=== PATIENT | female | born 1950 | race Caucasian/White ===

== ENCOUNTER → 2017-07-05 08:58 | Outpatient (CLI) | payer MEDICARE, SELFPAY ==
--- NOTE | 2017-07-05 09:01 | HPBI_ITS ---
MAMMOGRAPHY - BILATERAL SCREENING REASON FOR EXAM: Female, 67 years old. Routine annual screening examination. PERTINENT HISTORY: Non-contributory. TECHNIQUE: Digital bilateral breast heide (3D mammographic acquisition) in the CC and MLO projections. 2-D mediolateral oblique (MLO) and craniocaudad (CC) views of both breasts were obtained. CAD: Full Field Digital Mammography with Computer Added Detection was performed. COMPARISON: Comparison is made with prior study dated November 27, 2015 and October 18, 2013. FINDINGS: Breast Composition: The breasts are heterogeneously dense, which may obscure small masses. There are no dominant masses or suspicious calcifications. Stable calcified nodule in the superior retroareolar region of the left breast. No other significant abnormalities are identified. There has been no significant change since the prior study. HPBI/SCREENING MAMM (CAD), BILAT IMPRESSION: Stable bilateral screening mammogram. Yearly follow-up mammogram recommended. (A) ASSESSMENT CATEGORY: BIRADS Category 2: Benign. A letter regarding these results will be sent to the patient by the facility within 30 days. Approximately 10% of breast cancers are not detected by mammography. A normal mammogram should not delay biopsy of a clinically suspicious abnormality. [id number] Electronically Signed: Omar Leary MD at 10:45 EST Tel [phone], Service support ,
== END ==
PROVIDERS: Family Provider Internal Medicine; PCP Internal Medicine; Visit Provider Nurse Practitioner
DX: Z12.31 Encounter for screening mammogram for malignant neoplasm of breast (principal)
CPT/HCPCS: 77063; 77067

== ENCOUNTER → 2018-01-10 15:12 | Outpatient (CLI) | payer MEDICARE, SELFPAY | PROVIDERS: Family Provider Nurse Practitioner; PCP Nurse Practitioner; Visit Provider Nurse Practitioner | DX: J44.1 Chronic obstructive pulmonary disease with (acute) exacerbation (principal) | CPT/HCPCS: 71046 ==

== ENCOUNTER → 2018-07-21 13:41 | Outpatient (CLI) | payer MEDICARE, SELFPAY ==
[2017-03-29 13:12] VITALS: BMI 22.1
[2018-07-25 17:44] LABS: HPV Reflexed? NOT INDICATED
== END ==
PROVIDERS: Family Provider Nurse Practitioner; PCP Nurse Practitioner; Visit Provider Obstetrics & Gynecology
DX: N39.0 Urinary tract infection, site not specified (principal); Z12.4 Encounter for screening for malignant neoplasm of cervix; F31.9 Bipolar disorder, unspecified
CPT/HCPCS: 87086; 87088; 88175; G0145

== ENCOUNTER → 2018-07-25 12:14 | Outpatient (CLI) | payer MEDICARE, SELFPAY ==
[2018-07-25 12:32] LABS: Hematocrit 43.2 % (37-47); Hemoglobin 13.7 g/dl (12.0-15.0); Mean Corp Hgb Conc 31.7 g/gl (32-36); Mean Corpuscular Hgb 30.4 pg (27.0-32.0); Mean Platelet Vol. 10.2 fl (6.2-12.0); Platelet Count 332 K/mm3 (150-450); RBC Distribution Width SD 45.3 fl (35.1-43.9); White Blood Count 6.5 K/mm3 (4.4-11.0)
[2018-07-25 12:36] LABS: Scan Indicated on CBC? Y/N NO
[2018-07-25 13:37] LABS: BUN 11 mg/dL (7-18); Creatinine, Serum 0.87 mg/dL (0.55-1.02); EST Glomerular Filtration Rate 69 mL/min (>60); Glucose 82 mg/dL (74-106)
[2018-07-25 13:38] LABS: ALB/GLOB Ratio 1.1 RATIO (0.9-2.4); AST(SGOT) 21 U/L (15-37); Alanine Aminotransfer ALT/SGPT 19 U/L (13-56); Albumin, Serum 3.8 g/dL (3.2-5.0); Alkaline Phosphatase 127 U/L (45-117); Anion Gap 8 (5-15); BUN/Creat Ratio 12.7 RATIO (10-20); CPK Total, Creatine Kinase 38 U/L (26-192); Calcium,Total 9.8 mg/dL (8.5-10.1); Chloride 107 mmol/L (98-107); Est Glom Filt Rate - Afr Amer 83 mL/min (>60); Globulin 3.4 g/dL (2.2-4.2); Potassium 4.9 mmol/L (3.5-5.1); Protein, Total 7.2 g/dL (6.4-8.2); Sodium Level 140 mmol/L (136-145); Thyroid Stim Hormone (TSH) 1.06 uIU/mL (0.358-3.74)
[2018-07-25 15:14] LABS: D-Dimer Quantitative (DVT/PE) 0.51 FEU/ug/m (0.27-0.49)
--- NOTE | 2018-07-25 15:35 | CT_ITS ---
STUDY: CTA CHEST REASON FOR EXAM: Female, 68 years old. SOB/CP X DAYS RADIATION DOSAGE (If Supplied By Facility): CTDIvol = ( 5.37 ) mGy, DLP = ( 150.95 ) mGycm TECHNIQUE: The examination was performed with the intravenous administration of Isovue 370 75 IV. Post-processing of the angiographic images was performed, with multiplanar reformation and 3D reconstruction. Individualized dose optimization techniques were used for this CT. COMPARISON: None. FINDINGS: Normal enhancement of the main pulmonary artery and right and left pulmonary arteries. Normal enhancement of the bilateral peripheral pulmonary arteries. There is no demonstrated pulmonary embolism. Normal thoracic aorta and visualized great vessels. There is no demonstrated aortic dissection. Normal heart and pericardium. Normal mediastinum. Normal hilar regions. Normal visualized trachea and bronchi. The lungs are hyper expanded, with flattening of the hemidiaphragms. Normal pulmonary parenchyma. Normal pleura. Normal chest wall structures. Normal osseous structures. Normal visualized upper abdomen. CT/CTA Chest W/WO Contrast IMPRESSION: Normal CTA chest examination, without a demonstrated pulmonary embolism or arterial dissection. COPD. Electronically Signed: Clemente Parker MD at 16:12 EST , Service support ,
== END ==
PROVIDERS: Family Provider Nurse Practitioner; PCP Nurse Practitioner; Referring Provider Nurse Practitioner Gerontology; Visit Provider Nurse Practitioner Gerontology
DX: R07.9 Chest pain, unspecified (principal); R74.8 Abnormal levels of other serum enzymes
CPT/HCPCS: 71275; 80053; 82550; 84443; 84484; 85027; 85379; Q9967

== ENCOUNTER → 2018-07-27 07:44 | Outpatient (CLI) | payer MEDICARE, SELFPAY ==
[2017-03-29 13:12] VITALS: BMI 22.1
--- NOTE | 2018-07-27 07:50 | ECHOD_ITS ---
Reason For Study: CHEST PAIN Procedure This was a 2D Doppler, Color Flow transthoracic echocardiogram. Exam performed in department. Left Ventricle Normal size and thickness. The estimated ejection fraction is 60 %. Normal diastology for age. No regional wall motion abnormalities noted. Right Ventricle Mildly dilated right ventricle. Normal systolic function. Atria Normal left atrium. Normal right atrium. Hypermobile atrial septum. Bubble contrast study negative for right to left interatrial shunt. Mitral Valve The mitral valve is structurally normal. No prolapse or stenosis seen. Tricuspid Valve Normal tricuspid valve. Trivial tricuspid valve insufficiency. Right ventricular systolic pressure estimated to be 30 mmHg. Aortic Valve Normal aortic valve. Trisinus/trileaflet aortic valve. Pulmonic Valve Normal pulmonic valve. Trivial pulmonic valve insufficiency. Great Vessels Normal aortic root. Normal arch. Normal inferior vena cava. Inferior vena cava collapse with sniff. Pericardium/Pleural No pericardial effusion. Medication 22 gauge I.V. with prn adaptor inserted into right arm. Performed a rapid injection of agitated mix of 9 cc saline and 1cc air to assess for atrial septal defect. MMode/2D Measurements & Calculations LVIDd: 3.7 cm IVSd: 0.81 cm Ao root diam: 3.0 cm LVIDs: 2.5 cm LVPWd: 0.83 cm RVDd: 3.6 cm FS: 31.3 % LAV(MOD-bp): 26.4 ml LVAd ap4: 20.0 cm2 SV(MOD-sp4): 30.8 ml LAV(MOD-bp) Indexed: 18.2 ml/m2 EDV(MOD-sp4): 49.5 ml LAV(MOD-sp2): 34.1 ml EDV(sp4-el): 51.0 ml LAV(MOD-sp4): 17.3 ml LVAs ap4: 10.9 cm2 ESV(MOD-sp4): 18.8 ml ESV(sp4-el): 18.7 ml EF(MOD-sp4): 62.1 % EF(sp4-el): 63.3 % SV(sp4-el): 32.3 ml LA A4 area: 9.5 cm2 LA dimension(2D): 3.3 cm RA A4 area: 13.8 cm2 Time Measurements MV dec time: 0.23 sec Doppler Measurements & Calculations MV E max luc: 60.8 cm/sec Lat Peak E' Luc: 9.2 cm/sec Med Peak E' Luc: 8.4 cm/sec MV A max luc: 59.3 cm/sec E/E' lat: 6.6 E/E' med: 7.2 MV E/A: 1.0 Ao V2 max: 101.8 cm/sec LV V1 max: 75.4 cm/sec PA V2 max: 72.2 cm/sec Ao max P.1 mmHg LV V1 max P.3 mmHg TR max luc: 243.3 cm/sec TR max P.7 mmHg Interpretation Summary The estimated ejection fraction is 60 %. Normal diastology for age. Mildly dilated right ventricle. Hypermobile atrial septum. Bubble contrast study negative for right to left interatrial shunt. Trivial tricuspid valve insufficiency. Right ventricular systolic pressure estimated to be 30 mmHg. Compared to echo report dated 09/26/2007, no appreciable changes noted. Ordering Physician: Teresita Nieves Referring Physician: Teresita Nieves Performed By: Chelo Cruz RDCS
== END ==
PROVIDERS: Family Provider Internal Medicine; PCP Internal Medicine; Referring Provider Internal Medicine; Visit Provider Internal Medicine
DX: R07.9 Chest pain, unspecified (principal)
CPT/HCPCS: 93306

== ENCOUNTER → 2018-08-02 12:26 | Outpatient (CLI) | payer MEDICARE, SELFPAY ==
--- NOTE | 2018-08-02 12:34 | STE_ITS ---
Reason For Study: Chest Pain Stress Results Protocol: Patrick Protocol Maximum Predicted HR: 152 bpm Target HR: 129 bpm % Maximum Predicted HR: 103 % DurationHeart Rate Stage (mm:ss) (bpm) BP Comment Baseline 72 120/70No Chest Pain Patrick Protocol Stage I 3:00 126 130/68No Chest Pain Patrick Protocol Stage II 3:00 137 144/70No Chest Pain; Mild Dyspnea Patrick Protocol Stage III 3:00 157 184/72Mild to Moderate Chest Pressure; Mild Dypsnea Recovery 92 118/70No Chest Pain Stress Duration: 9:00 mm:ss Maximum Stress HR: 157 bpm METS: 10 Baseline Echocardiogram Findings Stress Echo Wall motion Data Resting WM Intermediate WM Stress WM Resting Wall Motion Wall Motion Stress Anterio-Basal: Normal. Anterio-Basal: Hyperkinetic. Lateral-Basal: Normal. Lateral-Basal: Hyperkinetic. Posterior-Basal: Normal. Posterior-Basal: Hyperkinetic. Infero-Basal: Normal. Infero-Basal: Hyperkinetic. Basal inferoseptal: Normal. Basal inferoseptal: Hyperkinetic. Basal anteroseptal: Normal. Basal anteroseptal: Hyperkinetic. Mid-Anterior : Normal. Mid-Anterior : Hyperkinetic. Mid-Lateral : Not visualized. Mid-Lateral : Not visualized. Mid-Posterior: Normal. Mid-Posterior: Hyperkinetic. Mid-Inferior: Normal. Mid-Inferior: Hyperkinetic. Mid-inferoseptal : Normal. Mid-inferoseptal : Hyperkinetic. Mid-anteroseptal : Normal. Mid-anteroseptal : Hyperkinetic. Anterior [place] : Normal. Anterior [place] : Hyperkinetic. Inferior [place] : Normal. Inferior [place] : Hyperkinetic. Lateral [place] : Normal. Lateral [place] : Hyperkinetic. Septall [place] : Normal. Septall [place] : Hyperkinetic. Ejection Fraction 60 %. Ejection Fraction 70 %. Stress Results Heart rate response: Appropriate Blood pressure response: Normal resting blood pressure-appropriate response Arrhythmias: Rare PAC during recovery Functional capacity: Good Stopped secondary to: Dysthymia. EKG Data Baseline ECG: Normal Sinus Rhythm. Peak exercise EC.5 mm Horizontal/Upsloping ST Segment Depression In Leads II, III, avF, and V4- V6 with gradual resolution towards baseline in recovery. Symptoms with Stress The patient noted chest/back discomfort at peak exercise with spontaneous resolution and recovery. Interpretation Summary Negative (Adequate) Stress Echocardiogram Comment: Basal Lateral Segment Inadequately Seen At Rest and s/p Stress Ordering Physician: Teresita Nieves Referring Physician: Andrés Jiménez Performed By: Alycia Birch, RDCS, RVT
== END ==
PROVIDERS: Family Provider Nurse Practitioner; PCP Nurse Practitioner; Referring Provider Internal Medicine; Visit Provider Internal Medicine
DX: R07.9 Chest pain, unspecified (principal)
CPT/HCPCS: 93017; 93350

== ENCOUNTER → 2018-08-03 13:02 | Outpatient (CLI) | payer MEDICARE, SELFPAY ==
[2017-03-29 13:12] VITALS: BMI 22.1
--- NOTE | 2018-08-03 13:04 | BI_ITS ---
MAMMOGRAPHY - BILATERAL SCREENING REASON FOR EXAM: Female, 68 years old. Routine annual screening examination. PERTINENT HISTORY: Non-contributory. TECHNIQUE: Digital bilateral breast heide (3D mammographic acquisition) in the CC and MLO projections. 2-D mediolateral oblique (MLO) and craniocaudad (CC) views of both breasts were obtained. CAD: Full Field Digital Mammography with Computer Added Detection was performed. COMPARISON: Comparison is made with prior study dated July 05, 1999 8:15 and November 27, 2015. FINDINGS: Breast Composition: The breasts are heterogeneously dense, which may obscure small masses. There are no dominant masses or suspicious calcifications. Stable calcified nodule in the superior retroareolar region of the left breast. Stable benign-appearing bilateral axillary lymph nodes. No other significant abnormalities are identified. There has been no significant change since the prior study. BI/SCREENING MAMM (CAD), BILAT IMPRESSION: Stable bilateral screening mammogram. Yearly follow-up mammogram recommended. (A) ASSESSMENT CATEGORY: BIRADS Category 2: Benign. A letter regarding these results will be sent to the patient by the facility within 30 days. Approximately 10% of breast cancers are not detected by mammography. A normal mammogram should not delay biopsy of a clinically suspicious abnormality. [id number] Electronically Signed: Omar Leary, at 15:07 EST , Service support ,
== END ==
PROVIDERS: Family Provider Nurse Practitioner; PCP Nurse Practitioner; Referring Provider Obstetrics & Gynecology; Visit Provider Obstetrics & Gynecology
DX: Z12.31 Encounter for screening mammogram for malignant neoplasm of breast (principal)
CPT/HCPCS: 77063; 77067

== ENCOUNTER → 2019-08-12 08:38 | Outpatient (CLI) | payer MEDICARE, SELFPAY ==
[2017-03-29 13:12] VITALS: BMI 22.1
--- NOTE | 2019-08-12 08:42 | US_ITS ---
STUDY: ABDOMINAL ULTRASOUND REASON FOR EXAM: Female, 69 years old. ABD PAIN TECHNIQUE: Transabdominal ultrasound was performed with real-time and static carrillo scale imaging. TECHNICAL QUALITY: Adequate. COMPARISON: CT 02/17/2017 FINDINGS: Liver: The liver measures 15 cm. There is increased echogenicity of the liver. The bile ducts are within normal limits. There is hepatic color flow. The direction of portal flow is hepatopetal. There is no demonstrated mass lesion. Gallbladder: The patient is status post cholecystectomy. Common Bile Duct (C.B.D.): The common bile duct measures 4 mm. Pancreas: There is normal echogenicity of the visualized pancreas. There is no demonstrated pancreatic mass or cyst. Spleen: Normal size of the spleen. The spleen measures 10.1 x 3.5 x 3.9 cm. Right Kidney: Normal size of the right kidney. The right kidney measures 9.0 x 4.5 x 4.8 cm. Normal renal cortex. The right cortex measures 1.2 cm. Anechoic renal cyst measures 1.8 cm, benign. There is no right hydronephrosis. Left Kidney: Normal size of the left kidney. The left kidney measures 9.2 x 4.1 x 5.0 cm. Normal renal cortex. The left cortex measures 1.2 cm. 1 cm left renal cyst is considered benign. There is no left hydronephrosis. Aorta: Nonaneurysmal, normal axial dimensions I.V.C.: The IVC is patent. There is no ascites. US/Abdomen Complete IMPRESSION: 1. Cholecystectomy. No biliary dilation. 2. Increased echogenicity of the liver is nonspecific but most commonly associated with hepatic steatosis. 3. Bilateral simple renal cysts. Electronically Signed: Guy Molina MD ([place]) at 14:15 EDT , Service support ,
== END ==
PROVIDERS: PCP Nurse Practitioner; Referring Provider Nurse Practitioner; Visit Provider Nurse Practitioner
DX: R10.13 Epigastric pain (principal)
CPT/HCPCS: 76700

== ENCOUNTER → 2021-01-02 13:08 | Outpatient (CLI) | payer MEDICARE, SELFPAY ==
--- NOTE | 2021-01-02 13:11 | CT_ITS ---
STUDY: CT ABDOMEN AND PELVIS WITH CONTRAST REASON FOR EXAM: Female, 70 years old. HEMATURIA RADIATION DOSAGE (If Supplied By Facility): CTDIvol = ( 10.03 ) mGy, DLP = ( 302.68 ) mGycm TECHNIQUE: Transaxial images were obtained from the dome of the diaphragm to the symphysis pubis with oral contrast. IV 75mL Isovue-300 was administered. Sagittal and coronal images were reconstructed. Individualized dose optimization techniques were used for this CT. COMPARISON: 02/17/2017 FINDINGS: The visualized lung bases are unremarkable. The visualized portions of the heart are within normal limits. Normal liver. Gallbladder surgically absent with expected biliary prominence likely associated with physiologic changes following cholecystectomy. Normal spleen. Normal pancreas. Normal bilateral adrenal glands. Simple bilateral renal cysts. No required imaging follow-up needed given high likelihood of benign nature. No hydronephrosis. No solid renal masses. Normal visualized stomach. Normal small intestine. There are multiple colonic diverticula consistent with diverticulosis. The appendix is visualized and appears normal. There is diffuse atherosclerotic calcification of the abdominal aorta, without a demonstrated aneurysm. Normal inferior vena cava. Normal retroperitoneum. Normal urinary bladder. Normal abdominal wall. There are diffuse degenerative changes of the visualized lumbar spine. Operative changes of the proximal right femur. CT/Abdomen/Pelvis WITH Contrast IMPRESSION: 1. No solid renal masses or hydronephrosis. No urinary tract calcifications demonstrated. Electronically Signed: Guy Molina MD ([place]) at 17:57 EDT , Service support ,
[2021-01-02 13:50] LABS: CREATININE FINGERSTICK 1.1 mg/dL (0.55-1.02)
== END ==
PROVIDERS: PCP Nurse Practitioner; Referring Provider Nurse Practitioner; Visit Provider Nurse Practitioner
DX: R31.9 Hematuria, unspecified (principal)
CPT/HCPCS: 74177; Q9967

== ENCOUNTER → 2021-01-13 | Outpatient (CLI) | payer MEDICARE, SELFPAY ==
[2017-03-29 13:12] VITALS: BMI 22.1
[2021-01-13 11:34] LABS: CPK Total, Creatine Kinase 53 U/L (26-192)
[2021-01-13 15:29] LABS: Troponin-I HS 4.9 pg/mL (3.0-53.7)
== END | disposition home or self-care (01) ==
PROVIDERS: PCP Nurse Practitioner; Referring Provider Nurse Practitioner; Visit Provider Nurse Practitioner
DX: R07.9 Chest pain, unspecified (principal)
CPT/HCPCS: 82550; 84484

== ENCOUNTER → 2021-01-21 07:43 | Outpatient (CLI) | payer MEDICARE, SELFPAY ==
--- NOTE | 2021-01-21 07:47 | ECHOD_ITS ---
Reason For Study: Chest pain Procedure This was a 2D Doppler, Color Flow transthoracic echocardiogram. The exam was of adequate technical quality. Exam performed in department. Left Ventricle Normal LV size. Left ventricular systolic function is normal. The estimated ejection fraction is 60 %. No evidence for diastolic dysfunction. No regional wall motion abnormalities noted. Right Ventricle Normal RV size. Normal systolic function. Atria Normal left atrium. Normal right atrium. No doppler evidence for ASD. Mitral Valve There is no mitral annular calcification. Normal mitral valve. Trivial mitral valve insufficiency. Tricuspid Valve Normal tricuspid valve. Trivial tricuspid valve insufficiency. Right ventricular systolic pressure estimated to be 25 mmHg. Aortic Valve Trisinus/trileaflet aortic valve. Normal aortic valve. Pulmonic Valve The pulmonic valve is not well visualized. Mild (1+) pulmonic valve insufficiency. Great Vessels Normal sized aortic root. Pericardium/Pleural No pericardial effusion. MMode/2D Measurements & Calculations LVIDd: 3.6 cm IVSd: 1.0 cm Ao root diam: 3.0 cm LVIDs: 2.3 cm LVPWd: 0.98 cm RVDd: 2.6 cm FS: 35.4 % LAV(MOD-bp): 33.4 ml LVAd ap4: 18.2 cm2 LVAd ap2: 20.5 cm2 LAV(MOD-bp) Indexed: 23.1 ml/m2 LVLd ap4: 7.0 cm LVLd ap2: 7.2 cm LAV(MOD-sp2): 33.8 ml EDV(MOD-sp4): 40.1 ml EDV(MOD-sp2): 50.6 ml LAV(MOD-sp4): 29.7 ml EDV(sp4-el): 40.1 ml EDV(sp2-el): 49.3 ml LVAs ap4: 10.7 cm2 LVAs ap2: 11.8 cm2 LVLs ap4: 6.2 cm LVLs ap2: 6.7 cm ESV(MOD-sp4): 16.3 ml ESV(MOD-sp2): 18.7 ml ESV(sp4-el): 15.8 ml ESV(sp2-el): 17.7 ml EF(MOD-sp4): 59.2 % EF(MOD-sp2): 63.0 % EF(sp4-el): 60.7 % SV(MOD-sp4): 23.7 ml SV(MOD-sp2): 31.9 ml SV(sp4-el): 24.4 ml LA dimension(2D): 3.4 cm LA A4 area: 12.9 cm2 RA A4 area: 12.1 cm2 Doppler Measurements & Calculations MV E max luc: 52.9 cm/sec Lat Peak E' Luc: 7.1 cm/sec Med Peak E' Luc: 4.5 cm/sec MV A max luc: 64.6 cm/sec E/E' lat: 7.4 E/E' med: 11.7 MV E/A: 0.82 Ao V2 max: 96.1 cm/sec LV V1 max: 74.3 cm/sec PA V2 max: 72.3 cm/sec Ao max P.7 mmHg LV V1 max P.2 mmHg TR max luc: 232.7 cm/sec TR max P.7 mmHg ECHO/Echo Complete Interpretation Summary Left ventricular systolic function is normal. The estimated ejection fraction is 60 %. Trivial mitral valve insufficiency. Trivial tricuspid valve insufficiency. Mild (1+) pulmonic valve insufficiency. Right ventricular systolic pressure estimated to be 25 mmHg. No evidence for diastolic dysfunction. Ordering Physician: Tammi Hameed Referring Physician: Tammi Hameed Performed By: Manjula Patterson RDCS
== END ==
PROVIDERS: PCP Nurse Practitioner; Referring Provider Nurse Practitioner; Visit Provider Nurse Practitioner
DX: R07.9 Chest pain, unspecified (principal)
CPT/HCPCS: 93306

== ENCOUNTER → 2021-01-25 08:38 | Outpatient (CLI) | payer MEDICARE, SELFPAY ==
--- NOTE | 2021-01-25 08:44 | US_ITS ---
STUDY: ABDOMINAL ULTRASOUND REASON FOR EXAM: Female, 70 years old. ABD PAIN TECHNIQUE: Transabdominal ultrasound was performed with real-time and static carrillo scale imaging. TECHNICAL QUALITY: Adequate. COMPARISON: None. FINDINGS: Liver: The liver measures 12.2 cm. There is normal echogenicity of the liver. The bile ducts are within normal limits. There is hepatic color flow. The direction of portal flow is hepatopetal. There is no demonstrated mass lesion. Portal vein measurement: Gallbladder: The patient is status post cholecystectomy. Common Bile Duct (C.B.D.): The common bile duct measures 7 mm. Pancreas: Pancreatic head and body are partially viewed but the tail is incompletely seen. There is normal echogenicity of the pancreas. There is no demonstrated pancreatic mass or cyst. Spleen: Normal size of the spleen. The spleen measures 7.7 cm. Right Kidney: Normal size of the right kidney. The right kidney measures 8.6 x 4.6 x 4.9 cm. Normal renal cortex. The right cortex measures 1.3 cm. There is demonstrated hypoechoic cyst within the mid cortex measuring 2.2 x 1.3 x 1.7 cm. There is no right hydronephrosis. Left Kidney: Normal size of the left kidney. The left kidney measures 10.2 x 3.9 x 4.7 cm. Normal renal cortex. The left cortex measures 1.2 cm. Small hypoechoic regions within the left renal cortex are present consistent with small renal cysts with the largest measuring 0.8 x 0.7 x 0.7 cm and 0.8 x 1.1 x 0.7 cm. There is no left hydronephrosis. Aorta: Proximal aorta measures 1.6 cm, mid 1.2 cm and distal 1.2 cm. I.V.C.: The IVC is patent. There is no ascites. US/Abdomen Complete IMPRESSION: No evidence of acute abdominal process by ultrasound with simple appearing renal cysts as above. Electronically Signed: Manolo Haddad DO at 10:10 EDT , Service support ,
== END ==
PROVIDERS: PCP Nurse Practitioner; Referring Provider Nurse Practitioner; Visit Provider Nurse Practitioner
DX: R10.9 Unspecified abdominal pain (principal)
CPT/HCPCS: 76700

== ENCOUNTER 2021-06-12 08:12 | Outpatient (CLI) | payer MEDICARE, SELFPAY ==
--- NOTE | 2021-06-12 08:15 | BI_ITS ---
MAMMOGRAPHY - BILATERAL SCREENING REASON FOR EXAM: Female, 71 years old. Routine annual screening examination. PERTINENT HISTORY: Non-contributory. TECHNIQUE: Digital bilateral breast francine (3D mammographic acquisition) in the CC and MLO projections. 2-D mediolateral oblique (MLO) and craniocaudad (CC) views of both breasts were obtained. CAD: Full Field Digital Mammography with Computer Added Detection was performed. COMPARISON: Comparison is made with prior study 08/03/2018 and 07/05/2017. FINDINGS: Breast Composition: The breasts are heterogeneously dense, which may obscure small masses. There are no dominant masses or suspicious calcifications. Stable calcified nodule in the superior retroareolar region of the left breast. Stable small benign appearing bilateral axillary nodes. No other significant abnormalities are identified. There has been no significant change since the prior study. BI/SCRN MAMM (CAD)W/FRANCINE BILAT IMPRESSION: Stable bilateral screening mammogram. Yearly follow-up mammogram recommended. (A) ASSESSMENT CATEGORY: BIRADS Category 2: Benign. A letter regarding these results will be sent to the patient by the facility within 30 days. Approximately 10% of breast cancers are not detected by mammography. A normal mammogram should not delay biopsy of a clinically suspicious abnormality. [id number] Electronically Signed: Omar Leary MD at 9:56 EST , Service support ,
--- NOTE | 2021-06-12 08:49 | BD_ITS ---
STUDY: DUAL ENERGY X-RAY ABSORPTIOMETRY / DXA REASON FOR EXAM: Female, 71 years old. [id number] TECHNIQUE: Bone Mineral Density (BMD) measurements of lumbar spine and left hip were obtained. COMPARISON: Comparison is made with prior study dated 11/27/2015 FINDINGS: Lumbar Spine (L1-L4): g/cm2 (0.651) / T-score (-3.6) / Z-score (-1.4) Findings are suggestive of osteoporosis with a high fracture risk. Left Femur Total: g/cm2 (0.572) / T-score (-3.0) / Z-score (-1.5) Left Femoral Neck: g/cm2 (0.4-2) / T-score (-3.9) / Z-score (-2.0) The T-Scores on the most recent prior examination were: Lumbar Spine (L1-L4): There has been worsening of bone density since the previous examination. Left Femur Total: which represents an improvement of 4.4%. BD/Dexa Bone Density Study IMPRESSION: The patient is considered osteoporotic as outlined below according to World Nino Organization (WHO) criteria with a high fracture risk. There has been worsening of bone density since the previous examination. Reference Information: The T-score is the number of standard deviations above or below the standard which is normal for young adults at their peak bone mineral density. The World Health Organization (WHO) interprets the T-scores as follows: Above -1 Normal bone density Between -1 and -2.5 Osteopenia Equal to / or below -2.5 Osteoporosis As a practical clinical guideline, osteopenia may be graded as follows: Mild -1 through -1.5 Moderate -1.6 through -2.0 Severe -2.1 through -2.4 The Z-score is the number of standard deviations above or below age-matched controls. A Z-score of less than -1.5 would be considered abnormal. References: 1. NIH Osteoporosis and Related Bone Diseases www osteo.org 2. International Society for Clinical Densitometry www iscd.org 3. National Osteoporosis Foundation www nof.org Electronically Signed: Omar Leary MD at 12:33 EST , Service support ,
== END 2021-06-12 23:59 | disposition short-term general hospital (02) ==
LOC: OPBI 08:13
PROVIDERS: PCP Nurse Practitioner; Visit Provider Nurse Practitioner
DX: Z12.31 Encounter for screening mammogram for malignant neoplasm of breast (principal); Z78.0 Asymptomatic menopausal state
CPT/HCPCS: 77063; 77067; 77080

== ENCOUNTER 2022-08-05 09:28 | Emergency (ER) | payer MEDICARE, SELFPAY ==
[2022-08-05 09:30] VITALS: BP 113/83; PULSE 86; RESP 18; TEMP 36.6; O2SAT 100; BMI 21.7
[2022-08-05 09:39] VITALS: O2SAT 99
[2022-08-05] MEDS: Aspirin 81 MG TAB.CHEW 324 MG PO (09:52)
--- NOTE | 2022-08-05 09:55 | RAD_ITS ---
STUDY: X-RAY CHEST REASON FOR EXAM: Female, 72 years old. Chest pain TECHNIQUE: Single AP portable view of the chest. COMPARISON: 01/13/2021 FINDINGS: EKG leads overlie the chest The lungs are clear and expanded. There is no demonstrated pleural abnormality. Normal size heart. Normal mediastinum and bert. Normal visualized pulmonary arteries. There is atherosclerotic calcification of the aortic arch with tortuosity. There are diffuse degenerative changes of the visualized thoracic spine. Normal visualized ribs, clavicles, and shoulders. There is no demonstrated abnormality of the visualized soft tissue structures of the upper abdomen. RAD/Chest 1 View (Portable) IMPRESSION: No acute pulmonary process Electronically Signed: Madi Tang MD at 10:27 EST ,
[2022-08-05 09:58] LABS: Absolute Lymphocyte Count 1.65 X10^3/uL (0.83-4.51); Absolute Neutrophil Count 4.5 X10^3/uL (2.0-7.7); Basophil# 0.05 X10^3/uL; Basophil% 0.7 % (0-1); Eosinophil# 0.06 X10^3/uL; Eosinophils% 0.9 % (0-5); Hemoglobin 14.4 g/dL (12.0-15.0); Lymphocyte # 1.65 X10^3/ul (0.83-4.51); Lymphocyte % 24.2 % (19-41); Mean Corp Hgb Conc 32.7 g/dL (32-36); Mean Corpuscular Hgb 31.8 pg (27.0-32.0); Mean Corpuscular Volume 97.1 fL (81-99); Mean Platelet Vol. 9.5 fl (6.2-12.0); Monocyte# 0.58 X10^3/uL; Monocyte% 8.5 % (0-10); NRBC Flagged by Analyzer 0 % (0-5); Neutrophil # 4.47 X10^3/uL (2.7-7.7); Neutrophil % 65.4 % (47-70); Platelet Count 304 K/mm3 (150-450); RBC Distribution Width CV 13.1 % (11.6-14.6); RBC Distribution Width SD 47.3 fl (35.1-43.9); Red Blood Count 4.53 M/mm3 (4.2-5.4); White Blood Count 6.8 K/mm3 (4.4-11.0)
--- NOTE | 2022-08-05 10:05 | ED.VIS.GI ---
HPI HPI - GI History of Present Illness Chief Complaint: Chest Pain Detail of Chief Complaint: Gastric abdominal pain. Informant: patient Abdominal Pain/Flank Pain Onset: Weeks and Month(s) Context: Gradual Onset Timing: Intermittent Quality: Aching and Cramping Location: Epigastric Current Severity: Mild Maximum Severity: Mild Worsened by: Nothing Relieved by: Nothing Nausea/Vomiting/Emesis GI Symptom: Negative for Nausea or Vomiting Diarrhea/Melena/Hematochezia GI Symptom: Negative for Diarrhea, Melena or Hematochezia Associated Symptoms Associated Symptoms: Negative for Dysuria, Frequency, Hematuria or Urgency Narrative Narrative: 72-year-old female prior cholecystectomy and hysterectomy. Prior back surgery. States that she has had epigastric abdominal pain for months to years. Become more frequent recently. She is on Protonix twice a day without any relief. She describes it as a sharp pain at times dull and aching. At times it does radiate into her chest. Is not associated with exertion. There is no nausea or vomiting. No diarrhea or fever. No melena. No weight change. No dysuria. She has had no exertional chest pain or exertional dyspnea she has no cardiac history. She is also at 6 months or so of dizziness that she describes as lightheaded. She was seen in her primary care physician's office today they have been working up these different symptoms both GI and otherwise. They did an EKG today they thought had nonspecific ST-T wave abnormalities and sent her in. She denies any chest pain or shortness of breath at this time. Prior similar symptoms: Yes Recent Illness/Hospitalization: No PFSH [facility] Medical History COPD (chronic obstructive pulmonary disease) HLD (hyperlipidemia) Home Medications levothyroxine 75 mcg tablet 75 mcg PO DAILY 11/15/14 [History Last Taken Unknown] pantoprazole 40 mg tablet,delayed release 40 mg PO DAILY 11/15/14 [History Last Taken Unknown] ergocalciferol (vitamin D2) 1,250 mcg (50,000 unit) capsule (Vitamin D2) 50,000 unit PO TUFR 03/26/17 [History Last Taken Unknown] rosuvastatin 10 mg tablet 10 mg PO QODAY 03/26/17 [History Last Taken Unknown] Allergy/AdvReac Type Severity Reaction Status Date / Time ciprofloxacin [From Cipro] Allergy Swelling Verified 08/05/22 09:39 ciprofloxacin HCl Allergy Swelling Verified 08/05/22 09:39 [From Cipro] morphine AdvReac Inflammation Verified 08/05/22 09:39 of vein Social History Smoking Status: Former smoker ROS ROS ED ROS Narrative Epigastric abdominal pain. Dizziness. Review of Systems ROS Unobtainable: Denies due to encephalopathy Constitutional Constitutional ED: Denies chills or fever(s) ENT ENT ED: Denies ear pain Cardiovascular Cardiovascular: Denies chest pain or palpitations Respiratory/Chest Respiratory/Chest: Denies cough or dyspnea Gastrointestinal Gastrointestinal: Reports abdominal pain; Denies constipation, diarrhea, melena, nausea or vomiting Genitourinary Genitourinary ED: Denies dysuria or hematuria Musculoskeletal Musculoskeletal: Reports back pain; Denies arthralgias Integumentary Denies abscess or Abrasions Neurologic Neurologic: Denies headache(s) Psychiatric Psychiatric: Denies anxiety Endocrine Endocrinology: Denies polydipsia Hematologic/Lymphatic Hematologic/Lymphatic: Denies easy bleeding Allergic/Immunologic Allergic/Immunologic ED: Denies mouth swelling or tongue swelling EXAM Physical Exam Narrative Exam Narrative: 72-year-old female no acute distress. Vital signs stable afebrile. Initial blood pressure 113/83. Pulse ox 100% on room air no signs hypoxia. She is in no distress. Clinically looks well. walking into the room as I was finishing my exam. H EENT exam unremarkable. Neck nontender. Lungs clear to auscultation bilaterally. Heart regular rate and rhythm rate about 80 no murmur. Chest wall nontender. Abdomen soft. Nondistended. Normal bowel sounds no peritoneal signs. Mild epigastric tenderness. No pulsatile mass. Right upper and lower quadrants are unremarkable. No hernia or distention. Moving all 4 extremities. Equal symmetrical radial pulses. Calves are nontender without edema or cords. Neurologically she is awake and alert with no focal motor deficits. Const Vital Signs: 08/05/22 09:30 08/05/22 09:39 08/05/22 09:39 Temperature 98 F Temperature Source Temporal Pulse Rate 86 Respiratory Rate 18 Respiratory Effort Normal Non-Labored Blood Pressure 113/83 H Blood Pressure Mean 93 Pulse Ox 100 99 Oxygen Delivery Method Room Air Room Air Positive well nourished and well developed; Negative for obese, cachectic, contractures or unkempt General Appearance ED: well developed and NAD; Negative for unkempt, cachectic, contractures or pallor Nutritional Appearance: Negative for cachectic or obese HEENT Reports moist mucous membranes normocephalic and atraumatic; Negative for trauma or tenderness Eyes PERRL and EOMs intact bilaterally General Eye ED: Negative for pale conjunctiva or scleral icterus Neck no lymphadenopathy, supple and no JVD General: Negative for tenderness Carotids: Negative for other Lymph Lymphatic: Negative for other Resp normal respiratory effort and clear to auscultation bilaterally Effort and Inspection: Negative for respiratory distress Auscultation: Negative for rales, rhonchi or wheezes Cardio regular rate, regular rhythm, S1 normal heart sound, S2 normal heart sound and no murmurs Rate: Negative for bradycardia or tachycardic Rhythm: Negative for abnormal rhythm GI non-distended and no masses; Negative for non-tender GI Narrative: Epigastric tenderness only. Mild. No mass. No pulsatile mass. Inspection: Negative for abdominal distention Auscultation: normoactive bowel sounds Palpation: soft and tender; Negative for guarding Back/Spine no CVA tenderness General Back: Negative for CVA tenderness Cervical Spine: Negative for cervical spine tenderness Thoracic Spine / Upper Back: Negative for thoracic spinal tenderness Lumbar Spine / Lower Back: Negative for lumbar spinal tenderness Coccyx: Negative for other Extremity full ROM General Extremety ED: Negative for edema or tenderness General Extremity: Negative for edema Neuro CN's II-XII intact bilaterally Sensorium / Orientation: alert, oriented to person, oriented to place and oriented to time; Negative for orientation impaired, confused, lethargic or stuporous Sensory Exam: No sensory level loss detected Motor Exam: strength 5/5 throughout Psych mental status grossly normal and thought process normal Appearance: Negative for unkempt Attitude: No agitated Mood & Affect: Negative for depressed, anxious or tearful Skin no wounds General Skin Exam: Negative for jaundice or pallor Lesions: no lesions Rashes: no rashes Trauma: Negative for abrasion Nails: Negative for discolored MDM MDM MDM Narrative Medical decision making narrative: 72-year-old female epigastric abdominal pain. She has had this for months or longer. Most likely GI she will undergo a cardiac work-up but she is having no exertional chest pain or exertional shortness of breath. Clinically I do not think this is cardiac. She will undergo cardiac work-up also liver and lipase test will be done. With a CT of her abdomen and pelvis to rule out any abdominal aortic aneurysm or other etiologies. Exam patient is doing well at 11:50 AM. I went over all test results with her and her . Clinically think this is GI and not cardiac. We went over all of her test results including her CAT scan and chest x-ray. She will be discharged home. Continue her Protonix. She also has Carafate. Follow-up with her primary care provider and GI. Return if feeling worse. Lab Data Attestation: I reviewed the patient's lab results. Lab results narrative: CBC normal. White count 6.8. H&H 14 and 44. Electrolytes show a gap of 4. Normal BUN of 11 creatinine 0.9. Glucose 104. Liver enzymes are normal. Troponin is normal at 5. Lipase is slightly elevated at 427 but not consistent with acute pancreatitis. Labs: Laboratory Results - last 24 hr 08/05/22 08/05/22 08/05/22 09:45 09:45 09:45 WBC 6.8 RBC 4.53 Hgb 14.4 Hct 44.0 MCV 97.1 MCH 31.8 MCHC 32.7 RDW Std Deviation 47.3 H RDW Coeff of Omer 13.1 Plt Count 304 MPV 9.5 Immature Gran % (Auto) 0.300 Neut % (Auto) 65.4 Lymph % (Auto) 24.2 Tillman % (Auto) 8.5 Eos % (Auto) 0.9 Baso % (Auto) 0.7 Absolute Neuts (auto) 4.5 Absolute Lymphs (auto) 1.65 Nucleated RBC % 0 Sodium 140 Potassium 3.6 Chloride 108 H Carbon Dioxide 28.0 Anion Gap 4 L BUN 11 Creatinine 0.96 Estim Creat Clear Calc 38.05 Est GFR (MDRD) Af Amer 74 Est GFR (MDRD) Non-Af 61 BUN/Creatinine Ratio 11.5 Glucose 104 Calcium 10.0 Total Bilirubin 0.50 Direct Bilirubin 0.15 AST 45 H ALT 94 H Alkaline Phosphatase 120 H Troponin I High Sens 5 Total Protein 7.5 Albumin 3.6 Globulin 3.9 Lipase 427 H Radiography Chest X-Ray - ED: 1 View, Read by Radiologist, Heart, Lungs, Mediastinum, Bony Structures, No Acute Disease and Chronic Changes Diagnostic Testing: Clinical Impression(s) from Imaging Studies Chest X-Ray 08/05/22 09:55 IMPRESSION: No acute pulmonary process Electronically Signed: Madi Tang MD at 10:27 EST , Abdomen/Pelvis CT 08/05/22 10:30 IMPRESSION: No suspicious solid organ abnormality, simple right renal cyst, no specific follow-up needed No free intraperitoneal fluid, air, or suspicious adenopathy, normal appendix visualized Degenerative bony changes Electronically Signed: Madi Tang MD at 10:51 EST , Chest x-ray, single view, interpreted myself and radiologist shows no acute abnormality. Normal cardiac silhouette. Rhythm Strip Rhythm Strip: Sinus Rhythm Rate: 75 Ectopy: None EKG Initial EKG: Attestation: I personally reviewed and interpreted this EKG as follows: Interpretation: Sinus Rhythm and No Acute Injury Pattern Comments: Sinus rhythm rate of 75 no acute signs of ID or ischemia. There is nonspecific ST-T wave abnormalities. No acute change from a prior EKG from February 2017. Prior: Unchanged Discharge Plan Triage Chief Complaint: Chest Pain ED Provider: Mk Murphy Dx/Rx/DC Orders Clinical Impression: Abdominal pain, acute, epigastric Instructions: ED Abdominal Pain Unkn Cause Fem Prescriptions: No Action levothyroxine 75 MCG tablet 75 mcg PO DAILY Label Comments: THYROID pantoprazole 40 MG tablet 40 mg PO DAILY Label Comments: REFLUX ergocalciferol (vitamin D2) [Vitamin D2] 50,000 UNIT capsule 50,000 unit PO TUFR rosuvastatin 10 MG tablet 10 mg PO QODAY Label Comments: CHOLESTEROL Primary Care Provider: Adriane Sarah Referrals: Teresita Nieves DO [Med Staff - Accounting File Clerk] - As Needed Activity Restrictions/Additional Instructions: Continue your Protonix and the Carafate. 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 Clinically this appears to be GI and does not appear to be cardiac. Your EKG that we did today was unchanged from what you had done in 2017. All your labs were unremarkable other than your lipase was slightly elevated but not enough to cause pancreatitis. I suspect this is gastritis which is inflammation of either your stomach or lower esophagus. Disposition Disposition: Home, Self Care
[2022-08-05 10:16] LABS: Anion Gap 4 (5-15); BUN 11 mg/dL (7-18); BUN/Creat Ratio 11.5 RATIO (10-20); Chloride 108 mmol/L (98-107); Creatinine, Serum 0.96 mg/dL (0.55-1.02); EST Glomerular Filtration Rate 61 mL/min (>60); Est Glom Filt Rate - Afr Amer 74 mL/min (>60); Estimated Creatinine Clearance 38.05 ml/min; Glucose 104 mg/dL (74-106); Lipase 427 U/L (73-393); Potassium 3.6 mmol/L (3.5-5.1); Sodium Level 140 mmol/L (136-145); Troponin-I HS (w/2H Reflex) 5 pg/mL (3.0-54.0)
[2022-08-05 10:20] LABS: AST(SGOT) 45 U/L (15-37); Alanine Aminotransfer ALT/SGPT 94 U/L (13-56); Albumin, Serum 3.6 g/dL (3.2-5.0); Alkaline Phosphatase 120 U/L (45-117); Bilirubin, Direct 0.15 mg/dL (0.00-0.30); Globulin 3.9 g/dL (2.2-4.2); Protein, Total 7.5 g/dL (6.4-8.2)
--- NOTE | 2022-08-05 10:30 | CT_ITS ---
STUDY: CT ABDOMEN AND PELVIS WITH CONTRAST REASON FOR EXAM: Female, 72 years old. Epigastric abd pain RADIATION DOSAGE (If Supplied By Facility): CTDIvol = ( 13.55 ) mGy, DLP = ( 338.57 ) mGycm TECHNIQUE: Transaxial images were obtained from the dome of the diaphragm to the symphysis pubis without oral contrast. IV 100mL Isovue-300 was administered. Sagittal and coronal images were reconstructed. Individualized dose optimization techniques were used for this CT. COMPARISON: 01/02/2021 FINDINGS: The visualized lung bases are unremarkable. The visualized portions of the heart are within normal limits. Normal liver. There are surgical clips in the gallbladder fossa consistent with a prior cholecystectomy. Normal spleen. Normal pancreas. Normal bilateral adrenal glands. No obstructive uropathy, or suspicious solid renal lesion, there is a simple 2 cm right renal cyst. Normal visualized stomach. Normal small intestine. There are multiple colonic diverticula consistent with diverticulosis. The appendix is visualized and appears normal. Appendix seen on coronal recon images 59 through 73 There is diffuse atherosclerotic calcification of the abdominal aorta, without a demonstrated aneurysm. Normal inferior vena cava. Normal retroperitoneum. Normal urinary bladder. Normal abdominal wall. There are diffuse degenerative changes of the visualized lumbar spine, and pelvis. Surgical hardware in the right femur free of complication CT/Abdomen/Pelvis W IV Cont ONLY IMPRESSION: No suspicious solid organ abnormality, simple right renal cyst, no specific follow-up needed No free intraperitoneal fluid, air, or suspicious adenopathy, normal appendix visualized Degenerative bony changes Electronically Signed: Madi Tang MD at 10:51 EST ,
[2022-08-05 11:56] LABS: Reflex Troponin-HS? (from REC) Y
[2022-08-05 12:00] VITALS: BP 143/89; PULSE 52; RESP 17; O2SAT 99
[2022-08-05 12:04] VITALS: BP 143/89; PULSE 87; RESP 16; O2SAT 98
== END 2022-08-05 12:10 | disposition home or self-care (01) ==
PROVIDERS: Emergency Provider Emergency Medicine; PCP Nurse Practitioner Family; Visit Provider Emergency Medicine
DX: R10.13 Epigastric pain (principal); E78.5 Hyperlipidemia, unspecified; Z79.899 Other long term (current) drug therapy; Z87.891 Personal history of nicotine dependence
CPT/HCPCS: 71045; 74177; 80048; 80076; 83690; 84484; 85025; 93005; 99285; Q9967; A4216

== ENCOUNTER → 2022-08-12 | Outpatient (CLI) | payer MEDICARE, SELFPAY ==
--- NOTE | 2022-08-12 10:34 | BI_ITS ---
MAMMOGRAPHY - BILATERAL SCREENING 3-D TOMOSYNTHESIS REASON FOR EXAM: Female, 72 years old. Routine screening PERTINENT HISTORY: No significant family history. TECHNIQUE: 2-D mammograms and 3-D Tomosynthesis of the breast (s) were performed. CAD was performed. COMPARISON: 06/12/2021 FINDINGS: The breast composition is heterogeneously dense that can obscure small breast masses. Scattered benign calcifications are seen. No dense spiculated masses or suspicious microcalcifications are identified. No architectural distortion is identified. There is no skin thickening or retraction. Stable chunky calcifications in the left breast. There has been no significant change since the prior study. BI/SCRN MAMM (CAD)W/FRANCINE BILAT IMPRESSION: No mammographic signs of malignancy. Routine yearly mammograms recommended. ASSESSMENT CATEGORY: BIRADS Category 2: Benign. A letter regarding these results will be sent to the patient by the facility within 30 days. FOLLOW UP RECOMMENDATION: Yearly follow up mammogram recommended. (A) Approximately 10% of breast cancers are not detected by mammography. A normal mammogram should not delay biopsy of a clinically suspicious abnormality. Electronically Signed: Madi Tang MD at 11:09 EDT ,
== END | disposition home or self-care (01) ==
LOC: OPBI 10:32
PROVIDERS: PCP Nurse Practitioner Family; Referring Provider Nurse Practitioner Family; Visit Provider Nurse Practitioner Family
DX: Z12.31 Encounter for screening mammogram for malignant neoplasm of breast (principal)
CPT/HCPCS: 77063; 77067

== ENCOUNTER → 2022-08-13 | Outpatient (CLI) | payer MEDICARE, SELFPAY ==
--- NOTE | 2022-08-13 06:19 | CDU_ITS ---
Reason For Study: Stenosis Rt. Velocities/BP Lt. Velocities/BP Prox CCA 52.2/13.5 cm/sec. Prox CCA 65.5/21.1 cm/sec. Mid CCA 47.2/12.3 cm/sec. Mid CCA 53.6/15.9 cm/sec. Dist CCA 42.5/14.3 cm/sec. Dist CCA 49.3/18.0 cm/sec. Prox ICA 55.1/23.0 cm/sec. Prox ICA 86.1/32.2 cm/sec. Mid ICA 77.8/32.4 cm/sec. Mid ICA 81.7/33.3 cm/sec. Dist ICA 92.7/33.3 cm/sec. Dist ICA 88.8/34.8 cm/sec. Rt. ICA/CCA = 2.0. Lt. ICA/CCA = 1.7. Prox ECA 54.6/10.2 cm/sec. Prox ECA 63.6/11.6 cm/sec. Rt. Vert. 45.8/14.4 cm/sec. Lt. Vert. 55.4/15.7 cm/sec. Right Extracranial There is homogeneous, smooth atherosclerotic plaque noted in the right common carotid artery. There is heterogeneous, irregular atherosclerotic plaque noted in the right internal carotid artery. There is heterogeneous, irregular atherosclerotic plaque noted in the right external carotid artery. Antegrade flow is noted in the right vertebral artery. Left Extracranial There is homogeneous, smooth atherosclerotic plaque noted in the left common carotid artery. There is heterogeneous, irregular atherosclerotic plaque noted in the left internal carotid artery. There is intimal thickening but no significant atherosclerotic plaque noted in the left external carotid artery. Antegrade flow is noted in the left vertebral artery. Procedure Carotid Duplex [id number]. This is a Carotid Duplex examination using B-mode, color flow and specral Doppler. The exam was diagnostic. Exam performed in department. VL/Carotid Duplex Ultrasound Interpretation Summary Mild (<50%) stenosis right extracranial internal carotid. Mild (<50%) stenosis left extracranial internal carotid. Patent and antegrade vertebrals bilaterally. Ordering Physician: Adriane Sarah Referring Physician: Adriane Sarah Performed By: Neo Miller RVT
--- NOTE | 2022-08-15 14:13 | STRESSREP ---
Stress Test Report Date: 08/13/2022 Procedure: Exercise tolerance test/imaging study Indications: Chest pain Consent: Per the patient Procedure: The patient exercised on a Patrick protocol for 6 minutes achieving a peak heart rate of 142 bpm (95% predicted maximal heart rate) with a peak blood pressure 148/80 mmHg and a peak MET capacity of 7 METs. The baseline ECG demonstrated normal sinus rhythm. The peak exercise ECG demonstrated no significant ischemic ST changes. EKG during recovery revealed no significant ischemic changes [There were no cardiac dysrhythmias pretest, during exercise, or recovery]. The functional capacity was considered normal for age. There was [no complaint of chest discomfort during exercise or recovery]. The examination was discontinued secondary to achieving target heart rate. Impression: 1. Technically adequate (percent predicted maximal heart rate greater than 85%) exercise tolerance test 2. Stress test is negative for exercise-induced EKG changes of ischemia 3. The test test is negative for exercise-induced chest pain 4. Functional capacity is normal for age 5. Nuclear images pending Myocardial perfusion imaging study: Technique: The patient was injected with 11 mCi of technetium 99m Cardiolite and subsequently rest SPECT Cardiolite nuclear imaging was obtained in the horizontal long, vertical long, and short axis views. The patient exercised on a Patrick protocol. Please see above for details. The patient was injected with 36 mCi of technetium 99m Cardiolite and subsequently stress SPECT Cardiolite nuclear imaging was obtained in the horizontal long, vertical long, and short axis views. A gated Cardiolite study at peak stress was obtained. Interpretation: Rest and stress SPECT Cardiolite nuclear imaging status post realignment, normalization, and attenuation correction, demonstrates overall normal myocardial radioisotope uptake. The gated Cardiolite study demonstrates no significant regional wall motion abnormalities. The reported LVEF is greater than 70%. Impression: 1. There is no evidence of significant ischemia or infarction. 2. The gated Cardiolite study reports an LVEF of greater than 70%. This note was generated with [employer] software. It may contain incorrect words, spelling, and punctuation that were not noted in checking the note before signing.
== END | disposition home or self-care (01) ==
PROVIDERS: PCP Nurse Practitioner Family; Referring Provider Nurse Practitioner Family; Visit Provider Nurse Practitioner Family
DX: R07.9 Chest pain, unspecified (principal); R42 Dizziness and giddiness
CPT/HCPCS: 78452; 93017; 93880; A9500

== ENCOUNTER → 2022-11-04 | Outpatient (CLI) | payer MEDICARE, SELFPAY ==
--- NOTE | 2022-11-04 07:56 | MRI_ITS ---
EXAM: MR ABDOMEN WITHOUT INTRAVENOUS CONTRAST, MRCP PROTOCOL CLINICAL INDICATION: cholestastic hepatitis with dilated cbd TECHNIQUE: Multiplanar and multisequence MR images of the abdomen without intravenous contrast obtained with MRCP sequence. Three-dimensional post-processing reconstructions were performed. This report was created using [employer] report generation technology. CONTRAST: None COMPARISON: 08/05/2022. FINDINGS: LOWER THORAX: Unremarkable. No pleural effusion. LIVER: Unremarkable. Normal morphology. GALLBLADDER AND BILE DUCTS: Dilated left more than right intrahepatic bile ducts. The common hepatic duct is dilated measuring 10.8 mm. The common duct is also diffusely dilated measuring up to 13.5 mm and remains dilated to just above the ampulla. The pancreatic duct is mildly, diffusely dilated measuring 2.4 mm. Extent of biliary dilation is best seen on three-dimensional reconstruction image 5 series 10, showing ductal tapering at the level of the ampulla. No filling defects within the biliary tree. Gallbladder is surgically absent. No choledochal filling defect. PANCREAS: Unremarkable. No focal cystic mass. No pancreatic duct dilation. SPLEEN: Unremarkable. Non-enlarged. ADRENALS: Unremarkable. No nodules. KIDNEYS AND URETERS: Simple bilateral renal cysts. No required imaging follow-up needed given high likelihood of benign nature. Normal renal size and position. No hydronephrosis. INTRAPERITONEAL SPACE: Unremarkable. No ascites or other fluid collection. VASCULATURE: Unremarkable. Abdominal aorta is non-dilated. LYMPH NODES: No enlarged lymph nodes. MRI/MRCP Abdomen without Contrast IMPRESSION: Extrahepatic more than intrahepatic bile duct dilation without demonstrable choledocholithiasis or extrinsic mass effect. Sphincter of Oddi dysfunction and ampullary mass (no discrete duodenal mass seen) in the differential diagnosis. Electronically Signed: Guy Molina (Brooks), at 14:03 EDT ,
== END | disposition home or self-care (01) ==
PROVIDERS: PCP Nurse Practitioner Family; Referring Provider Internal Medicine Gastroenterology; Visit Provider Internal Medicine Gastroenterology
DX: K80.50 Calculus of bile duct without cholangitis or cholecystitis without obstruction (principal); R10.9 Unspecified abdominal pain
CPT/HCPCS: 74181

== ENCOUNTER → 2022-11-13 | Outpatient (CLI) | payer MEDICARE, SELFPAY ==
--- NOTE | 2022-11-13 11:35 | NM_ITS ---
CLINICAL: 72-year-old female with history of chronic nausea. SEMI-SOLID PHASE 99m Tc SULFUR COLLOID GASTRIC EMPTYING STUDY COMPARISON: Abdominal MRI-MRCP report 11/04/2022 FINDINGS: The patient was administered 1.0 mCi of 99m Tc sulfur colloid mixed with oatmeal and consumed per os. Image acquisitions in the anterior-posterior projections were obtained for 60 minutes. There is prompt visualization of the stomach. There is no gastroesophageal reflux identified. The T ? raw data emptying was calculated to be 32.73 minutes, (Normal: 12-56 minutes). NM/Gastric Emptying Study IMPRESSION: 1. NORMAL 99m Tc sulfur colloid semi-solid phase (oatmeal) gastric emptying imaging examination. A. There is normal and preserved semi-solid phase gastric emptying compared to normal controls. (Karuna et al, J Nucl Med Tech 38: 186, 2010). Electronically Signed: Zechariah Mota, at 10:54 EDT ,
== END | disposition home or self-care (01) ==
LOC: NM 11:33
PROVIDERS: PCP Nurse Practitioner Family; Referring Provider Internal Medicine Gastroenterology; Visit Provider Internal Medicine Gastroenterology
DX: R11.2 Nausea with vomiting, unspecified (principal); R10.9 Unspecified abdominal pain
CPT/HCPCS: 78264; A9541

== ENCOUNTER → 2022-11-16 | Outpatient (CLI) | payer MEDICARE, SELFPAY ==
--- NOTE | 2022-11-16 08:47 | NM_ITS ---
CLINICAL: 72-year-old female with history of right upper quadrant pain, status post cholecystectomy. RADIONUCLIDE HEPATOBILIARY SCINTIGRAPHY COMPARISON: None available FINDINGS: Following the intravenous administration of 5.5 mCi of 99m Tc Mebrofenin, hepatobiliary images reveal: 1. Relatively prompt and homogeneous radiopharmaceutical concentration is noted by a normal sized liver. No parenchymal defects are identified. 2. Gallbladder activity is not identified during 60 minutes of sequential imaging commensurate with known history of prior cholecystectomy. 3. Small intestinal tract is observed at 53-54 minutes post radiopharmaceutical administration. 4. Washout of the radiopharmaceutical by the hepatic parenchyma occurs appears qualitatively normal. NM/Hepatobilliary Imaging IMPRESSION: 1. Nonvisualization of the gallbladder is consistent with prior cholecystectomy. 2. Further evaluation of this individual may be undertaken utilizing pre-examination CCK quantitative hepatobiliary scintigraphy to exclude the presence of post cholecystectomy syndrome-Sphincter of Oddi dysfunction. (Spencer et al, J Nucl Med 33: 1216, 1992). Electronically Signed: Zechariah Mota, at 21:06 EDT ,
== END | disposition home or self-care (01) ==
LOC: NM 08:46
PROVIDERS: PCP Nurse Practitioner Family; Referring Provider Internal Medicine Gastroenterology; Visit Provider Internal Medicine Gastroenterology
DX: K80.20 Calculus of gallbladder without cholecystitis without obstruction (principal)
CPT/HCPCS: 78226; A9537

== ENCOUNTER 2023-01-26 10:52 | Day surgery (SDC) | payer MEDICARE, SELFPAY ==
[2023-01-26] VITALS (7 sets, daily range): BP systolic 85–112; BP diastolic 42–86; PULSE 65–86; RESP 16–20; TEMP 36.6–36.9; O2SAT 98–100; BMI 20.6
[2023-01-26] MEDS: Lactated Ringers 1,000 ML 15 ML IV (11:25)
--- NOTE | 2023-01-26 11:33 | HP.PCM_ITS ---
History and Physical Date of Admission: 01/26/23 ALIX AVILA, is a 72 F who presents to the office today for GI Hx elevated lipase, elevated AP, bloating, abdominal pain, hiatal heria, GERD, functional bowel disorder. PMH osteopenia/porosis, arthritis, COPD, atherosclerosis, anisometropia, anxiety/depression, hyperlipidemia, hypothyroid, herpes zoster of eye. GI Dr. Duval established previously. ? EGD 06.23.19 erythematous esophagus. Reactive gastropathy. H.pylori negative. PCP OV 08.05.22 as f/u noting stomach upset/upper abdominal discomfort radiating into her back. Start famotidine PRN and sucralfate (previously helpful) [facility] ED 08.05.22 abdominal pain. Cardiac workup WNL ? Biochemical CBC, CMP, troponin without pertinent abnormality. ? AST H45-ALT H94-AP H120 (first elevation), lipase H427 ? CT abd/pel .01.20 s/p cholecystectomy; renal cyst; diverticulosis. [facility] review notes dilation of CBD. *[facility] established 10.22.22 epigastric/chest pain extending into her back occurring weekly or less with intermittent episodes of N/V every couple of months. Reflux is also a difficulty but overall well managed with pantoprazole 40mg BID (for 5- 10 years, no kidney disease admits to some bone loss). Last colonoscopy has been many years but does Cologuard regularly with negative results each time. ROS Const Constitutional: No anorexia, fatigue, fever(s), weight change or sleep problems Eyes Eyes: No change in vision ENT ENT: No abnormal hearing, difficulty swallowing, mouth lesions, tongue swelling or throat swelling Resp Respiratory: No cough or shortness of breath Cardio Cardiology: No chest pain at rest, chest pain with exertion, shortness of breath or dyspnea on exertion Gastro GI: No difficulty swallowing Genitourinary-Female: No difficulty urinating or burning urination Musc Musculoskeletal: No joint pain, joint swelling, muscle weakness or decreased muscle mass Skin Skin: No hair loss in leg, yellowing of the eye, itchy eyes, rash, skin ulcer or skin swelling Neuro Neurology: No abnormal hearing, abnormal movements, confusion, unsteady gait/balance or memory loss Psych Psychiatric: No anxiety, No confusion and No memory loss Endo Endocrine: No fatigue or weight change Aller/Imm Allergy/Immunologic: No itchy eyes, throat swelling or tongue swelling Willis/Lymp Hematologic/Lymphatic: No easy bleeding, easy bruising or enlarged lymph nodes Exam Const General: cooperative and comfortable Nutritional Appearance: average body habitus and well nourished [facility] Head: normal to inspection Ears: hearing grossly normal bilaterally Nose: external nose normal Face and sinus: normal facial exam Mouth: oral mucosae normal Throat: posterior oropharynx normal Eyes General: appearance normal, both eyes and all related structures Neck Neck: normal visual inspection Chest Chest palpation & inspection: normal inspection of the chest and normal palpation of entire chest wall Resp Effort & Inspection: normal respiratory effort Auscultation: Bilateral: Clear to Auscultation Cardio Palpation: normal PMI Rate: regular rate Rhythm: regular rhythm GI Inspection: normal to inspection Auscultation: normal bowel sounds Percussion: normal to percussion Palpation: no hepatosplenomegaly Skin General: no rashes or lesions noted Neuro General: patient alert Extrem General: normal to inspection Psych Affect: normal affect Quality Reporting Tobacco Screening ([facility] 138) Smoking Status: Former smoker Assessment and Plan Assessment and Plan (1) Abdominal pain: Status: Chronic Plan: Abdominal pain, gastroparesis, gastritis celiac, sphincter of Oddi syndrome choledocholithiasis. After reviewing her lab work she does have history of increased AST, ALT and alkaline phosphatase with a 2:1 ratio from ALT AST. This is consistent with either medications, virus or sphincter of Oddi syndrome versus choledocholithiasis. On her CT she does have dilated pancreatic duct and common. Her common bile duct is bigger than it would have been expected postcholecystectomy 73-year-old. Also the pancreatic duct should not be dilated. She will see pain along with a HIDA scan to see the patency of sphincter of Oddi. She will need to evaluate upper GI tract to make sure she does not have peptic ulcer disease, H. pylori associated gastritis or retained food secondary to gastroparesis. Orders: Orders MRCP Abdomen without Contrast Today K80.50 - Calculus of bile duct without cholangitis or cholecystitis without obstruction, R10.9 - Unspecified abdominal pain Gastric Emptying Study Today K31.84 - Gastroparesis, R10.9 - Unspecified abdominal pain Hepatobilliary Img w/Pharm Int Today K80.20 - Calculus of gallbladder without cholecystitis without obstruction, R10.9 - Unspecified abdominal pain I have examined the patient and the H&P has been reviewed. There are no clinical changes since date of exam.
--- NOTE | 2023-01-26 12:00 | FLU_PTH ---
PATIENT: ALIX AVILA LOC: EN U#:[id number] AGE/SX: 72/F ROOM: RE01/26/[address]: Dr. Moses Alcocer DO : 1950 BED: DIS: 01/26/2023 SPEC #: [id number] RECD: 01/26/23 13:07 STATUS: CHARANJIT ZAINAB #: [id number] BERNARDINO: 01/26/23 12:[address]: Moses Alcocer DEPT: CYTOLOGY RECD BY: Aditi Damon ENTERED: 01/26/23 13:27 SP TYPE: Fluid OTHR DR: Adriane Sarah, PRIVATE CLIENT ADVISOR-Shaila Tissues: A - Bile duct, NOS B - Bile duct, NOS Procedures: Special Stain Group II Surgery Specimen Level IV Cytospin Fluid Cytology Other HEADER OPERATION: ERCP with brushings, balloon and stent PRE-OP DIAGNOSIS: Abdominal pain TISSUE SUBMITTED: A - Common bile duct stricture brushings x4 slides, B - Common bile duct brush tip DIAGNOSIS CYTOLOGY A. Common bile duct stricture brushings (smears): Negative for malignant cells. See comment. B. Common bile duct brush tip fluid (cytospin and cell block): Negative for malignant cells. See comment. DARIEL:gallo 01/27/2023 COMMENT A. Reactive epithelial cells are noted. Correlation with clinical findings and appropriate follow up are necessary. CYTOLOGY STUDY Slides are reviewed. CYTOLOGY GROSS A - Received are four smears labeled with the patient's name and designated per the requisition as common bile duct stricture. Submitted for staining. B - Received is a metallic endoscopic cytobrush with adherent minute fragments of echeverria-red tissue brush in 0.5 ml of yellow cloudy fluid and labeled with the patient's name and and designated per the requisition as common bile duct brush tip. The material is dislodged from the brush and submitted for cytology preparation including cell block. / gallo 01/26/2023 TC:5 CPT: 87643, 95473, 47998
--- NOTE | 2023-01-26 12:05 | RAD_ITS ---
INDICATION: PAIN EXAMINATION/TECHNIQUE: ERCP spot intraoperative films were provided for interpretation. Total Fluoroscopic Time: 83.5 seconds AND number of Fluoroscopic Images: 9 COMPARISON: None. FINDINGS: The common bile duct was cannulated with injection of contrast. There is mild to moderate distention of the common bile duct with mild intrahepatic biliary distention. There is mild irregularity at the distal aspect of the common bile duct with a stone, stricture or mass not excluded. There is final placement of a stent through the bile duct.. RAD/ERCP Biliary Only IMPRESSION: Distention of the common bile duct and intrahepatic biliary system with final placement of a biliary stent. For details, please see procedural report. Electronically Signed: Dominga Escobedo, at 18:08 EDT ,
--- NOTE | 2023-01-26 13:00 | OP.ERCP_ITS ---
Patient Name: Laine Muller Procedure Date: 01/26/2023 11:46 AM Date of : 1950 Age: 72 Procedure: ERCP Indications: Abnormal abdominal CT, Abnormal MRCP, Elevated liver enzymes Providers: Moses Alcocer DO Referring MD: Sawyer Del Cid Medicines: Monitored Anesthesia Care Patient Profile: This is a 72 year old female. Refer to note in patient chart for documentation of history and physical. Patient has symptoms of chronic right upper quadrant abdominal pain, chronic dyspepsia and chronic nausea. Complications: No immediate complications. Procedure: Pre-Anesthesia Assessment: - Prior to the procedure, a History and Physical was performed, and patient medications and allergies were reviewed. The patient is competent. The risks and benefits of the procedure and the sedation options and risks were discussed with the patient. All questions were answered and informed consent was obtained. Patient identification and proposed procedure were verified by the physician. Mental Status Examination: alert and oriented. Airway Examination: normal oropharyngeal airway and neck mobility. Respiratory Examination: clear to auscultation. CV Examination: normal. Prophylactic Antibiotics: The patient does not require prophylactic antibiotics. Prior Anticoagulants: The patient has taken no anticoagulant or antiplatelet agents. ASA Grade Assessment: II - A patient with mild systemic disease. After reviewing the risks and benefits, the patient was deemed in satisfactory condition to undergo the procedure. The anesthesia plan was to use general anesthesia. Immediately prior to administration of medications, the patient was re-assessed for adequacy to receive sedatives. The heart rate, respiratory rate, oxygen saturations, blood pressure, adequacy of pulmonary ventilation, and response to care were monitored throughout the procedure. The physical status of the patient was re-assessed after the procedure. After obtaining informed consent, the scope was passed under direct vision. Throughout the procedure, the patient's blood pressure, pulse, and oxygen saturations were monitored continuously. The Duodenoscope was introduced through the mouth, and advanced to the duodenum and used to inject contrast into the bile duct. The ERCP was accomplished without difficulty. The patient tolerated the procedure well. Scope In: 12:12:21 PM Scope Out: 12:45:43 PM Total Procedure Duration Time 0 hours 33 minutes 22 seconds Findings: The mining speculator film was normal. The esophagus was successfully intubated under direct vision. The scope was advanced to a normal major papilla in the descending duodenum without detailed examination of the pharynx, larynx and associated structures, and upper GI tract. The upper GI tract was grossly normal. The bile duct was deeply cannulated with the short-nosed traction sphincterotome. Contrast was injected. I personally interpreted the bile duct images. There was brisk flow of contrast through the ducts. Image quality was excellent. Contrast extended to the entire biliary tree. Opacification of the entire biliary tree except for the cystic duct and gallbladder was successful. The maximum diameter of the ducts was 10 mm. The lower third of the main bile duct contained a single segmental stenosis 3 mm in length. The main bile duct was diffusely dilated, acquired. The largest diameter was 13 mm. A cholecystectomy had been performed. Placement of a long 0.025 inch Jagwire into the biliary tree was attempted. This passed successfully. A 5 mm biliary sphincterotomy was made with a braided traction (standard) sphincterotome using ERBE electrocautery. The sphincterotomy oozed blood. To discover objects, the biliary tree was swept with a 15 mm balloon starting at the bifurcation. Sludge was swept from the duct. All stones were removed. Cells for cytology were obtained by brushing in the lower third of the main bile duct. The lower third of the main bile duct was successfully dilated with a 10-11-12 mm balloon (to a maximum balloon size of 10 mm) dilator. One 10 Fr by 7 cm temporary stent was placed 5 cm into the common bile duct. Bile flowed through the stent. The stent was in good position. Impression: - A single segmental biliary stricture was found in the lower third of the main bile duct. The stricture was benign appearing. - The entire main bile duct was dilated, acquired. - The patient has had a cholecystectomy. - Choledocholithiasis was found. Complete removal was accomplished by biliary sphincterotomy and balloon extraction. - A biliary sphincterotomy was performed. - The biliary tree was swept. - Cells for cytology obtained in the lower third of the main duct. - The lower third of the main bile duct was successfully dilated. - One temporary stent was placed into the common bile duct. Procedure Code(s): --- Professional --- 34488, Endoscopic retrograde cholangiopancreatography (ERCP); with placement of endoscopic stent into biliary or pancreatic duct, including pre- and post-dilation and guide wire passage, when performed, including sphincterotomy, when performed, each stent [id number], Endoscopic retrograde cholangiopancreatography (ERCP); with removal of calculi/debris from biliary/pancreatic duct(s) 05340, 26, Endoscopic catheterization of the biliary ductal system, radiological supervision and interpretation CPT copyright 2021 [employer]. All rights reserved. The codes documented in this report are preliminary and upon micromatic hone operator review may be revised to meet current compliance requirements. Moses Alcocer DO 01/26/2023 1:00:24 PM This report has been signed electronically. Number of Addenda: 0 Note Initiated On: 01/26/2023 11:46 AM
--- NOTE | 2023-01-26 13:00 | OP.CCLET_ITS ---
01/26/2023 Sawyer Del Cid Re : ERCP procedure for Laine Over Saran Sarah This procedure was performed on Thursday, January 26, 2023. My impressions and recommendations are as follows: Impressions : - A single segmental biliary stricture was found in the lower third of the main bile duct. The stricture was benign appearing. - The entire main bile duct was dilated, acquired. - The patient has had a cholecystectomy. - Choledocholithiasis was found. Complete removal was accomplished by biliary sphincterotomy and balloon extraction. - A biliary sphincterotomy was performed. - The biliary tree was swept. - Cells for cytology obtained in the lower third of the main duct. - The lower third of the main bile duct was successfully dilated. - One temporary stent was placed into the common bile duct. Recommendations : My findings are described in the full procedure note, which is enclosed. If I can be of further assistance, please feel free to contact me at . Sincerely, Moses Alcocer DO 01/26/2023 1:00:24 PM This report has been signed electronically.
--- NOTE | 2023-01-26 16:13 | SUR.PHASEII ---
per dr swan, 3,000 ml of LR to be infused before being d/c. when pt came to d/c side pt had had 1.5 liters already infused.
== END 2023-01-26 16:25 | disposition home or self-care (01) ==
LOC: EN 10:55 → AC 10:57
PROVIDERS: PCP Nurse Practitioner Family; Referring Provider Nurse Practitioner Family; Visit Provider Internal Medicine Gastroenterology
PROC: (CPT 43260; principal; 2023-01-26 11:40)
DX: K80.51 Calculus of bile duct without cholangitis or cholecystitis with obstruction (principal); J44.9 Chronic obstructive pulmonary disease, unspecified; G89.29 Other chronic pain; E78.00 Pure hypercholesterolemia, unspecified; E03.9 Hypothyroidism, unspecified; E55.9 Vitamin D deficiency, unspecified; Z90.49 Acquired absence of other specified parts of digestive tract; Z79.899 Other long term (current) drug therapy; Z87.891 Personal history of nicotine dependence
CPT/HCPCS: 43264; 43274; J7120; 74328; 76000; 88108; 88161; 88305; 88313; 93005; J2405

== ENCOUNTER 2023-01-26 19:09 | Inpatient (IN) | payer MEDICARE, SELFPAY ==
[2023-01-26 19:10] VITALS: BP 129/96; PULSE 75; RESP 18; TEMP 36.6; O2SAT 95
--- NOTE | 2023-01-26 19:11 | CT_ITS ---
INDICATION: Post ERCP, increased abdominal pain, nausea. Question pancreatitis, perforation. EXAMINATION: CT ABDOMEN AND PELVIS WITH CONTRAST - CT Abdomen And Pelvis W/ Contrast Injection TECHNIQUE: Helically acquired images were obtained of the abdomen and pelvis following IV contrast. A radiation dose optimization technique was used for this scan. IV Contrast dosage and agent: 75 mL of [id number]-300. Oral contrast: Oral contrast is present. Contrast agent not specified. COMPARISON: CT abdomen and pelvis August 05, 2022 FINDINGS: LOWER CHEST: Lung bases are clear. No cardiomegaly or pericardial effusion. No hiatal hernia. LIVER: Homogeneous. No focal mass. GALLBLADDER AND BILIARY TREE: Gallbladder is not visualized, likely surgically absent. There is a common bile duct stent and secondary pneumobilia. Minimal residual intrahepatic biliary ductal dilation. PANCREAS: No ductal dilation. No areas of decreased enhancement. No significant areas of obscured pancreatic margins to confidently diagnose pancreatitis. SPLEEN: Normal size without focal cystic or solid mass. ADRENAL GLANDS: No nodules. KIDNEYS, URETERS and BLADDER: Normal renal size and position. 19 mm homogenous fluid density upper pole right kidney consistent with simple cysts. 2 right and 3 left, subcentimeter renal hypodensities, are too small to characterize, but the likely represent simple cysts. No hydronephrosis. Bladder is mildly distended. PERITONEUM: There are some inflammatory changes around the first and second portions of the duodenum and also in the left pericolic region. Small amount of free fluid in the left pericolic gutter and dependent portion of the pelvis. No focal or drainable fluid collection. BOWEL: Subtle pyloric region and proximal duodenal wall thickening suggested. No other evidence of focal inflammatory changes. No abnormally distended bowel loops or air fluid levels. No wall thickening or mass. No focal inflammatory changes. Normal appendix. Diverticula in the sigmoid colon. LYMPH NODES: No enlarged mesenteric or retroperitoneal lymph nodes. VESSELS: Moderate atherosclerosis without stenosis or aneurysmal dilation REPRODUCTIVE ORGANS: Absent or atrophic. ABDOMINAL WALL: No discrete abdominal or pelvic wall hernia. BONES: No lytic or blastic abnormality. Subjective appearance of decreased bone mineral density. 3 screws in the right femoral neck. No fracture or focal osseous lesion. Age expected degenerative changes especially at L4-5. CT/Abdomen/Pelvis W IV Cont ONLY IMPRESSION: New biliary stent and secondary pneumobilia. No significant intrahepatic ductal dilation. Inflammatory stranding densities region of the first and second portions of the duodenum and in the left pericolic gutter. Trace fluid left pericolic gutter and in the pelvis. Questionable mild wall thickening distal pyloric, proximal duodenal region questionable for origin of inflammatory changes. No ulcer visible. No free air. Pancreas is without areas of decreased enhancement or significant obscuration of pancreatic margins. Imaging does not exclude suspected pancreatitis and correlation with amylase and lipase is recommended. Duodenitis should be considered. No free air. Electronically Signed: Gianfranco Ko DO at 21:11 EDT ,
[2023-01-26 19:14] VITALS: BMI 21.9
[2023-01-26] MEDS: 0.9% Normal Saline 1,000 ML 1000 ML IV (19:20)
[2023-01-26 19:25] LABS: Absolute Lymphocyte Count 0.76 X10^3/uL (0.83-4.51); Absolute Neutrophil Count 13.7 X10^3/uL (2.0-7.7); Basophil# 0.04 X10^3/uL; Basophil% 0.3 % (0-1); Hematocrit 45.4 % (37-47); Hemoglobin 14.8 g/dL (12.0-15.0); Lymphocyte # 0.76 X10^3/ul (0.83-4.51); Mean Corp Hgb Conc 32.6 g/dL (32-36); Mean Corpuscular Hgb 31.5 pg (27.0-32.0); Mean Corpuscular Volume 96.6 fL (81-99); Mean Platelet Vol. 9.8 fl (6.2-12.0); Monocyte# 0.55 X10^3/uL; Monocyte% 3.7 % (0-10); NRBC Flagged by Analyzer 0 % (0-5); Neutrophil # 13.65 X10^3/uL (2.7-7.7); Neutrophil % 90.6 % (47-70); Platelet Count 274 K/mm3 (150-450); RBC Distribution Width CV 12.4 % (11.6-14.6); RBC Distribution Width SD 44.9 fl (35.1-43.9); White Blood Count 15.1 K/mm3 (4.4-11.0)
--- NOTE | 2023-01-26 19:27 | ED.VIS.GI ---
HPI HPI - GI History of Present Illness Chief Complaint: Abd Pain Informant: patient, spouse/S.O. and PCP Narrative Narrative: Patient presents with abdominal pain. I directly discussed the case with Dr. Alcocer when he called in to notify me what happened with this patient and about her arrival. I had also discussed the issues with the patient and her . Patient in ERCP today for some retained stones that were causing jaundice. They do not think this is cancer. She had her gallbladder out in the past. She did have some biopsies done but it was thought not to likely be cancerous. She states she was having some pain after the procedure but it is increased. She has had some nausea and dry heaves. No fevers. Never had any history of pancreatitis before. No chest pain or trouble breathing. [facility] Medical History Anisometropia Anxiety Arthralgia Arthritis Bloating COPD (chronic obstructive pulmonary disease) Elevated alkaline phosphatase level Elevated lipase Former smoker Functional intestinal disorder, unspecified GERD (gastroesophageal reflux disease) Hiatal hernia High cholesterol History of echocardiogram History of edema History of pain when walking History of stress test HLD (hyperlipidemia) Hypothyroidism Leg cramps Osteoporosis Post-menopausal Vitamin D deficiency Wears hearing aid Wears partial dentures Home Medications levothyroxine 75 mcg tablet 75 mcg PO DAILY 11/15/14 [History Last Taken Unknown] pantoprazole 40 mg tablet,delayed release 40 mg PO BID 11/15/14 [History Last Taken Unknown] rosuvastatin 10 mg tablet 10 mg PO QODAY 03/26/17 [History Last Taken Unknown] alprazolam 0.5 mg tablet 0.5 mg PO DAILY PRN anxiety 08/10/22 [History Last Taken Unknown] cholecalciferol (vitamin D3) 50 mcg (2,000 unit) capsule 50 mcg PO DAILY 08/10/22 [History Last Taken Unknown] Allergy/AdvReac Type Severity Reaction Status Date / Time Sulfa (Sulfonamide Allergy Intermediate Rash Verified 01/26/23 19:13 Antibiotics) ciprofloxacin [From Cipro] Allergy Swelling Verified 01/26/23 19:13 ciprofloxacin HCl Allergy Swelling Verified 01/26/23 19:13 [From Cipro] morphine AdvReac Inflammation Verified 01/26/23 19:13 of vein Family History Mother Diabetes Father Brain cancer Sister Cancer of kidney GERD (gastroesophageal reflux disease) Sister Atrial septal defect GERD (gastroesophageal reflux disease) Brother Atrial septal defect Surgical History H/O total hysterectomy History of esophagogastroduodenoscopy (EGD) History of hip surgery Hx laparoscopic cholecystectomy Hx of colonoscopy Hx of discectomy Social History Smoking Status: Former smoker ROS ROS ED Constitutional Constitutional ED: Denies chills, fever(s), subjective or sweats ENT ENT ED: Denies sore throat Cardiovascular Cardiovascular: Denies chest pain, palpitations or racing heartbeat Respiratory/Chest Respiratory/Chest: Denies cough or dyspnea Gastrointestinal Gastrointestinal: Reports abdominal pain, nausea and vomiting Genitourinary Genitourinary ED: Denies hematuria Musculoskeletal Musculoskeletal: Denies back pain or neck pain Integumentary Denies rash Neurologic Neurologic: Denies headache(s) Psychiatric Psychiatric: Reports anxiety Endocrine Endocrinology: Denies polydipsia or polyuria Hematologic/Lymphatic Hematologic/Lymphatic: Denies easy bleeding or easy bruising Allergic/Immunologic Allergic/Immunologic ED: Denies urticaria EXAM Physical Exam Narrative Exam Narrative: CONSTITUTIONAL: Patient looks very uncomfortable. HEENT: No notable trauma. Mucous membranes still moist. No sinus tenderness. No indication of pain with swallowing. EYES: No conjunctival injection. No proptosis. CARDIOVASCULAR: Regular rate. Regular rhythm. No notable murmur. No JVD. RESPIRATORY: No respiratory distress. Breathing is unlabored. No wheezes. No rhonchi. No rales. No pain with a deep breath. GASTROINTESTINAL: Questionable mild distention. Bowel sounds are present but they do seem a little bit quiet. She really does not have all that much tenderness though. No rebound or guarding. She is just uncomfortable. GENITOURINARY: No tenderness over the bladder. No CVA tenderness. MUSCULOSKELETAL: Atraumatic. No peripheral edema. No cord. No tenderness along the deep venous system. No asymmetry. NEUROLOGICAL: Patient is alert and appropriate. No focal deficit noted. SKIN: No noted rashes. No diaphoresis. PSYCHIATRIC: Patient is calm. Mood is appropriate. Const Vital Signs: 01/26/23 19:10 01/26/23 20:23 01/26/23 21:12 Temperature 97.8 F Temperature Source Temporal Pulse Rate 75 78 75 Respiratory Rate 18 12 19 H Blood Pressure 129/96 H 116/97 H 117/102 H Blood Pressure Mean 107 103 107 Pulse Ox 95 93 94 Oxygen Delivery Method Room Air Room Air Room Air MDM MDM MDM Narrative Medical decision making narrative: Patient CBC shows mild elevation of white count. This may be stress and pain demargination. Hemoglobin and platelets are normal. Patient's electrolytes show no marked abnormalities. There is a mild elevation of glucose at 193 though. Liver function test show elevation of bilirubin AST ALT and alk phos. Alk phos is similar to before but others are higher. Patient's lipase is quite high at 5000 consistent with her clinical diagnosis of pancreatitis. urine is overall clean. Management interpretation the patient's CT scan of the abdomen does show inflammation around the pancreas. Final reading shows this and also mentions no free air. I did discuss the case again directly with Dr. Alcocer. He recommended lactated Ringer's at 300 an hour which was ordered. I then discussed case with hospitalist and patient will be admitted. Lab Data Attestation: I reviewed the patient's lab results. Labs: Laboratory Results - last 24 hr 01/26/23 01/26/23 19:15 20:55 WBC 15.1 H RBC 4.70 Hgb 14.8 Hct 45.4 MCV 96.6 MCH 31.5 MCHC 32.6 RDW Std Deviation 44.9 H RDW Coeff of Omer 12.4 Plt Count 274 MPV 9.8 Immature Gran % (Auto) 0.400 Neut % (Auto) 90.6 H Lymph % (Auto) 5.0 L [place] % (Auto) 3.7 Eos % (Auto) 0.0 Baso % (Auto) 0.3 Absolute Neuts (auto) 13.7 H Absolute Lymphs (auto) 0.76 L Nucleated RBC % 0 Sodium 137 Potassium 4.1 Chloride 103 Carbon Dioxide 27.0 Anion Gap 7 BUN 17 Creatinine 0.92 Estim Creat Clear Calc 39.70 Est GFR (MDRD) Af Amer 77 Est GFR (MDRD) Non-Af 64 BUN/Creatinine Ratio 18.5 Glucose 193 H Calcium 9.5 Total Bilirubin 1.20 H AST 656 H ALT 357 H Alkaline Phosphatase 125 H Total Protein 6.9 Albumin 3.6 Globulin 3.3 Albumin/Globulin Ratio 1.1 Lipase > 5000 H Urine Color Yellow Urine Clarity Clear Urine pH 8.0 Ur Specific [place] 1.010 Urine Protein Negative Urine Glucose (UA) 100 H Urine Ketones Negative Urine Occult Blood 10 H Urine Nitrite Negative Urine Bilirubin Negative Urine Urobilinogen Normal Ur Leukocyte Esterase Negative Urine RBC 0 SEEN Urine WBC 0 SEEN Ur Squamous Epith Cells 0 SEEN Urine Bacteria 0 SEEN Urine Mucus 0 SEEN Radiography Diagnostic Testing: Clinical Impression(s) from Imaging Studies Abdomen/Pelvis CT 01/26/23 19:11 IMPRESSION: New biliary stent and secondary pneumobilia. No significant intrahepatic ductal dilation. Inflammatory stranding densities region of the first and second portions of the duodenum and in the left pericolic gutter. Trace fluid left pericolic gutter and in the pelvis. Questionable mild wall thickening distal pyloric, proximal duodenal region questionable for origin of inflammatory changes. No ulcer visible. No free air. Pancreas is without areas of decreased enhancement or significant obscuration of pancreatic margins. Imaging does not exclude suspected pancreatitis and correlation with amylase and lipase is recommended. Duodenitis should be considered. No free air. Electronically Signed: Gianfranco Ko DO at 21:11 EDT , Management Discussion w/another healthcare provider: Hospitalist and Poultry [employer] Supervisor Discharge Plan Triage Chief Complaint: Abd Pain ED Provider: Ozzie Padilla Dx/Rx/DC Orders Clinical Impression: Post-ERCP acute pancreatitis, Nausea & vomiting, Abdominal pain Prescriptions: No Action cholecalciferol (vitamin D3) 50 mcg (2,000 unit) capsule 50 mcg PO DAILY alprazolam 0.5 mg tablet 0.5 mg PO DAILY PRN (Reason: anxiety) levothyroxine 75 MCG tablet 75 mcg PO DAILY Patient Comments: THYROID pantoprazole 40 MG tablet 40 mg PO BID Patient Comments: REFLUX rosuvastatin 10 MG tablet 10 mg PO QODAY Patient Comments: CHOLESTEROL Primary Care Provider: Adriane Sarah Referrals: Adriane Sarah, RESEARCH ASSOCIATE PROFESSOR-C [Primary Care Provider] - Disposition Disposition: Acute Care Hospital [facility]
[2023-01-26] MEDS: fentaNYL 100 MCG/2 ML Ampul 25 MCG IV ×2 (19:37→20:01)
[2023-01-26] MEDS: Ondansetron 4 MG/2 ML Vial IV ×2 (19:37→21:24)
[2023-01-26 20:04] LABS: ALB/GLOB Ratio 1.1 RATIO (0.9-2.4); AST(SGOT) 656 U/L (15-37); Alanine Aminotransfer ALT/SGPT 357 U/L (13-56); Albumin, Serum 3.6 g/dL (3.2-5.0); Alkaline Phosphatase 125 U/L (45-117); Anion Gap 7 (5-15); BUN 17 mg/dL (7-18); BUN/Creat Ratio 18.5 RATIO (10-20); Calcium,Total 9.5 mg/dL (8.5-10.1); Chloride 103 mmol/L (98-107); Creatinine, Serum 0.92 mg/dL (0.55-1.02); EST Glomerular Filtration Rate 64 mL/min (>60); Est Glom Filt Rate - Afr Amer 77 mL/min (>60); Globulin 3.3 g/dL (2.2-4.2); Glucose 193 mg/dL (74-106); Potassium 4.1 mmol/L (3.5-5.1); Protein, Total 6.9 g/dL (6.4-8.2); Sodium Level 137 mmol/L (136-145)
[2023-01-26 20:23] VITALS: BP 116/97; PULSE 78; RESP 12; O2SAT 93
[2023-01-26 20:47] LABS: Lipase > 5000 U/L (13-75)
[2023-01-26 21:01] LABS: Bacteria 0 SEEN /hpf (None Seen); Mucous, Urine 0 SEEN /hpf (<or=2+); Red Blood Cells-Urine 0 SEEN /hpf (0-5); Squamous Epithelial Cells - UA 0 SEEN /hpf (5-10); White Blood Cells 0 SEEN /hpf (0-5)
[2023-01-26 21:10] LABS: Color, Urine Yellow (Yellow); Glucose, Dipstick 100 mg/dl (Normal); Ketone-Dipstick Negative (Negative); Leukocyte Esterase-Dipstick Negative /ul (Negative); Nitrite-Dipstick Negative (Negative); Occult Blood-Urine 10 /ul (Negative); Protein-Dipstick Negative (Negative); Urine Bilirubin Dipstick Negative (Negative); Urine Clarity Clear (Clear); Urine Urobilinogen Normal (Normal)
[2023-01-26 21:12] VITALS: BP 117/102; PULSE 75; RESP 19; O2SAT 94
[2023-01-26] MEDS: HYDROmorphone 0.5 MG/0.5 ML SYRINGE IV (21:14)
--- NOTE | 2023-01-26 21:33 | PCM.HP.STD ---
HPI - General General Date of Admission: 01/26/23 Date of Service: 01/26/23 Chief Complaint: abdominal pain HPI Munir AVILA, is a 72 F With a significant history of cholecystectomy who presents to the emergency department with excruciating epigastric pain that radiated to her back. The pain started after ERCP. She denies any aggravating factors to the pain. Pain improved with pain medicine given at the emergency department. [facility] Medical History Anisometropia Anxiety Arthralgia Arthritis Bloating COPD (chronic obstructive pulmonary disease) Elevated alkaline phosphatase level Elevated lipase Former smoker Functional intestinal disorder, unspecified GERD (gastroesophageal reflux disease) Hiatal hernia High cholesterol History of echocardiogram History of edema History of pain when walking History of stress test HLD (hyperlipidemia) Hypothyroidism Leg cramps Osteoporosis Post-menopausal Vitamin D deficiency Wears hearing aid Wears partial dentures Home Medications levothyroxine 75 mcg tablet 75 mcg PO DAILY 11/15/14 [History Last Taken Unknown] pantoprazole 40 mg tablet,delayed release 40 mg PO BID 11/15/14 [History Last Taken Unknown] rosuvastatin 10 mg tablet 10 mg PO QODAY 03/26/17 [History Last Taken Unknown] alprazolam 0.5 mg tablet 0.5 mg PO DAILY PRN anxiety 08/10/22 [History Last Taken Unknown] cholecalciferol (vitamin D3) 50 mcg (2,000 unit) capsule 50 mcg PO DAILY 08/10/22 [History Last Taken Unknown] Allergy/AdvReac Type Severity Reaction Status Date / Time Sulfa (Sulfonamide Allergy Intermediate Rash Verified 01/26/23 19:13 Antibiotics) ciprofloxacin [From Cipro] Allergy Swelling Verified 01/26/23 19:13 ciprofloxacin HCl Allergy Swelling Verified 01/26/23 19:13 [From Cipro] morphine AdvReac Inflammation Verified 01/26/23 19:13 of vein Family History Mother Diabetes Father Brain cancer Sister Cancer of kidney GERD (gastroesophageal reflux disease) Sister Atrial septal defect GERD (gastroesophageal reflux disease) Brother Atrial septal defect Surgical History H/O total hysterectomy History of esophagogastroduodenoscopy (EGD) History of hip surgery Hx laparoscopic cholecystectomy Hx of colonoscopy Hx of discectomy Social History Smoking Status: Former smoker ROS ROS Narrative Pertinent positives and pertinent negatives as noted in HPI. All other systems were reviewed and are negative Vital Signs Vital Signs Vital Signs: 01/26/23 19:10 01/26/23 20:23 01/26/23 21:12 Temperature 97.8 F Temperature Source Temporal Pulse Rate 75 78 75 Respiratory Rate 18 12 19 H Blood Pressure 129/96 H 116/97 H 117/102 H Blood Pressure Mean 107 103 107 Pulse Ox 95 93 94 Oxygen Delivery Method Room Air Room Air Room Air Weight Weight: 50.9 kg Body Mass Index (BMI) 21.9 Physical Exam Narrative Physical exam: General: In excruciating pain. Head: Normocephalic, atraumatic, no tenderness Eyes: Vision is grossly intact. EOMI ENT, no trauma, moist mucous membranes, no rhinorrhea Neck: Nontender, No thyromegaly. CVS: Regular rate and rhythm. S1-S2 present. No murmur, gallop or rub. Respiratory : clear to auscultation bilaterally, chest wall nontender Abdomen: Soft, nontender, nondistended, normal bowel sounds, no masses : Deferred Back: Nontender, no CVA tenderness, no midline spinal tenderness, deformities, step-offs Extremities: Nontender full range of motion, no trauma Skin: Mild jaundice. Mild scleral icterus of bilateral eyes. Normal color, no trauma, abrasions Neuro: Alert, oriented, cranial nerves II through XII grossly intact. Psychiatry: Normal mood. Normal affect. Not depressed. Not anxious. Results Lab / Micro Data 01/26/23 19:15 01/26/23 19:15 Labs: Laboratory Results - last 24 hr 01/26/23 19:15: WBC 15.1 H, RBC 4.70, Hgb 14.8, Hct 45.4, MCV 96.6, MCH 31.5, MCHC 32.6, RDW Std Deviation 44.9 H, RDW Coeff of Omer 12.4, Plt Count 274, MPV 9.8, Immature Gran % (Auto) 0.400, Neut % (Auto) 90.6 H, Lymph % (Auto) 5.0 L, [place] % (Auto) 3.7, Eos % (Auto) 0.0, Baso % (Auto) 0.3, Absolute Neuts (auto) 13.7 H, Absolute Lymphs (auto) 0.76 L, Nucleated RBC % 0, Sodium 137, Potassium 4.1, Chloride 103, Carbon Dioxide 27.0, Anion Gap 7, BUN 17, Creatinine 0.92, Estim Creat Clear Calc 39.70, Est GFR (MDRD) Af Amer 77, Est GFR (MDRD) Non-Af 64, BUN/Creatinine Ratio 18.5, Glucose 193 H, Calcium 9.5, Total Bilirubin 1.20 H, AST 656 H, ALT 357 H, Alkaline Phosphatase 125 H, Total Protein 6.9, Albumin 3.6, Globulin 3.3, Albumin/Globulin Ratio 1.1, Lipase > 5000 H 01/26/23 20:55: Urine Color Yellow, Urine Clarity Clear, Urine pH 8.0, Ur Specific [place] 1.010, Urine Protein Negative, Urine Glucose (UA) 100 H, Urine Ketones Negative, Urine Occult Blood 10 H, Urine Nitrite Negative, Urine Bilirubin Negative, Urine Urobilinogen Normal, Ur Leukocyte Esterase Negative, Urine RBC 0 SEEN, Urine WBC 0 SEEN, Ur Squamous Epith Cells 0 SEEN, Urine Bacteria 0 SEEN, Urine Mucus 0 SEEN Radiology Impression Abdomen/Pelvis CT 01/26/23 19:11 IMPRESSION: New biliary stent and secondary pneumobilia. No significant intrahepatic ductal dilation. Inflammatory stranding densities region of the first and second portions of the duodenum and in the left pericolic gutter. Trace fluid left pericolic gutter and in the pelvis. Questionable mild wall thickening distal pyloric, proximal duodenal region questionable for origin of inflammatory changes. No ulcer visible. No free air. Pancreas is without areas of decreased enhancement or significant obscuration of pancreatic margins. Imaging does not exclude suspected pancreatitis and correlation with amylase and lipase is recommended. Duodenitis should be considered. No free air. Electronically Signed: Gianfranco Ko DO at 21:11 EDT , Assessment & Plan Assessment/Plan (1) Post-ERCP acute pancreatitis: (2) Hypothyroidism: QUALIFIERS: Hypothyroidism type: acquired Qualified Code(s): E03.9 - Hypothyroidism, unspecified PLAN: Plan Post ERCP acute pancreatitis Emergency dependably discussed the case with Dr. Alcocer. Started on LR at 300 MLS per hour. Keep patient n.p.o. except meds. Consult Dr. Alcocer. Trend CMP. Trend CBC. Post ERCP pancreatitis time spent in the patient's overall evaluation,decision-making process, review of diagnostic data, adjustment of management, discussion with other providers, nursing nursing and ancillary staff involved in patient's care documentation Total clinical time spent by myself addressing the patient's medical issues, reviewing all the data, and collaborating with the patient's care team: 45 minutes Charges/Coding Visit Charges Inpatient E&M: 11198 Init Hosp L2
[2023-01-26] MEDS: Lactated Ringers 1,000 ML 300 ML IV (21:40)
[2023-01-26 21:53] VITALS: BP 148/78; PULSE 71; RESP 17; TEMP 36.6; O2SAT 99
[2023-01-26 23:38] VITALS: BMI 21.8
[2023-01-26 23:45] VITALS: BP 139/83; PULSE 65; RESP 18; TEMP 36.8; O2SAT 95
[2023-01-26 23:46] VITALS: BP 139/83; PULSE 65; RESP 18; TEMP 36.8; O2SAT 95
[2023-01-27] VITALS (8 sets, daily range): BP systolic 106–121; BP diastolic 52–69; PULSE 71–95; RESP 16–20; TEMP 36.7–36.9; O2SAT 79–96
[2023-01-27] MEDS: HYDROmorphone 0.5 MG/0.5 ML SYRINGE IV ×4 (00:20→11:07)
[2023-01-27] MEDS: Lactated Ringers 1,000 ML 150 ML IV ×2 (01:15→06:51)
[2023-01-27] MEDS: Ondansetron 4 MG/2 ML Vial IV ×3 (03:17→21:17)
[2023-01-27 06:33] LABS: Absolute Lymphocyte Count 1.12 X10^3/uL (0.83-4.51); Absolute Neutrophil Count 12.6 X10^3/uL (2.0-7.7); Basophil# 0.03 X10^3/uL; Basophil% 0.2 % (0-1); Hematocrit 39.6 % (37-47); Hemoglobin 12.5 g/dL (12.0-15.0); Lymphocyte # 1.12 X10^3/ul (0.83-4.51); Lymphocyte % 7.2 % (19-41); Mean Corp Hgb Conc 31.6 g/dL (32-36); Mean Corpuscular Hgb 31.1 pg (27.0-32.0); Mean Corpuscular Volume 98.5 fL (81-99); Mean Platelet Vol. 10.5 fl (6.2-12.0); Monocyte# 1.74 X10^3/uL; Monocyte% 11.1 % (0-10); NRBC Flagged by Analyzer 0 % (0-5); Neutrophil # 12.63 X10^3/uL (2.7-7.7); Neutrophil % 80.9 % (47-70); POSITIVE DIFFERENTIAL YES; Platelet Count 257 K/mm3 (150-450); RBC Distribution Width CV 12.7 % (11.6-14.6); RBC Distribution Width SD 45.8 fl (35.1-43.9); Red Blood Count 4.02 M/mm3 (4.2-5.4); White Blood Count 15.6 K/mm3 (4.4-11.0)
[2023-01-27 06:36] LABS: Differential Indicated SCAN CRITERIA MET
[2023-01-27] MEDS: proCHLORPERazine 10 MG/2 ML Vial 5 MG IV ×2 (06:50→15:15)
[2023-01-27 06:53] LABS: Differential Comment SCANNED
[2023-01-27 07:03] LABS: ALB/GLOB Ratio 1.1 RATIO (0.9-2.4); AST(SGOT) 280 U/L (15-37); Alanine Aminotransfer ALT/SGPT 263 U/L (13-56); Alkaline Phosphatase 101 U/L (45-117); Anion Gap 5 (5-15); BUN 14 mg/dL (7-18); BUN/Creat Ratio 17.1 RATIO (10-20); Calcium,Total 8.5 mg/dL (8.5-10.1); Chloride 105 mmol/L (98-107); Creatinine, Serum 0.82 mg/dL (0.55-1.02); EST Glomerular Filtration Rate 73 mL/min (>60); Est Glom Filt Rate - Afr Amer 88 mL/min (>60); Estimated Creatinine Clearance 49.34 ml/min; Globulin 2.7 g/dL (2.2-4.2); Glucose 126 mg/dL (74-106); Potassium 3.8 mmol/L (3.5-5.1); Protein, Total 5.7 g/dL (6.4-8.2); Sodium Level 137 mmol/L (136-145)
[2023-01-27 07:39] LABS: Erythrocyte Sedimentation Rate < 1 mm/hr (0-30)
[2023-01-27] MEDS: 0.9% Saline Lock 10 ML Syringe IV ×4 (11:07→21:19)
[2023-01-27] MEDS: Enoxaparin 40 MG/0.4 ML Syringe SC (11:11)
--- NOTE | 2023-01-27 11:55 | CASEMGMT ---
RN HIRAM Face to Face with patient for initial transition planning/care coordination assessment, , Keanu, at bedside. RN CM introduced self and role at [facility]. Patient lying in bed, alert and oriented. Patient willing to participate in assessment and is able to answer all questions appropriately.? Care providers, pharmacy, and demographics verified. Patient wishes to discharge home, denies need for home health at this time.? Patient states she has no further needs or concerns at this time. CM to follow for discharge planning needs that may arise. PCP:Tyrel Specialists:Preethi (Orthopedic Surgeon) Preferred Pharmacy:[facility] [place] Insurance:[facility] Medicare Prescription Benefit:?Yes Living Will/HPOA:No LNOK: , Keanu Over Living Arrangements:Patient states she lives at home with her , Keanu, in a 1 1/2 story home, [facility] with 3 steps to enter and 12 steps to second story (both with railings). Patient states she is independent in all ADLs and ambulation. Transportation:Self and DME/HHC:Patient's reports they have a BP cuff. Patient denies needs for additional DME. Patient denies any previous SNF or HHC. Disposition Plan:Patient to discharge home with family support and follow-up plans in place. Elisa ECHOLS, RN, CM
--- NOTE | 2023-01-27 12:39 | PN_ITS ---
Subjective Subjective Patient seen and examined. She was admitted with abdominal pain after she had ERCP and be managed for pancreatitis due to ERCP. She still complains of abdominal pain. She also complains of some nausea but no vomiting. She was on room air this morning but subsequently required 2 L of oxygen as she became hypoxic. Objective Data Objective Data Vital Signs: Vital Signs Temp Pulse Resp BP Pulse Ox O2 Del Method 98.5 F 90 18 112/69 93 Room Air 01/27/23 05:20 01/27/23 05:20 01/27/23 05:20 01/27/23 05:20 01/27/23 07:19 01/27/23 07:19 Oxygen Delivery Method Room Air Weight: 111 lb 1.808 oz Body Mass Index (BMI) 21.8 Intake & Output: Intake and Output for Last 24 Hours 01/25/23 01/26/23 01/27/23 23:59 23:59 23:59 Intake Total 1000 / 1000 1840 / 1840 Output Total / Balance 1000 / 1000 1839 / 1839 Lab / Micro Data 01/27/23 05:50 01/27/23 05:50 Labs: Laboratory Results - last 24 hr 01/26/23 19:15: WBC 15.1 H, RBC 4.70, Hgb 14.8, Hct 45.4, MCV 96.6, MCH 31.5, MCHC 32.6, RDW Std Deviation 44.9 H, RDW Coeff of Omer 12.4, Plt Count 274, MPV 9.8, Immature Gran % (Auto) 0.400, Neut % (Auto) 90.6 H, Lymph % (Auto) 5.0 L, [place] % (Auto) 3.7, Eos % (Auto) 0.0, Baso % (Auto) 0.3, Absolute Neuts (auto) 13.7 H, Absolute Lymphs (auto) 0.76 L, Nucleated RBC % 0, Sodium 137, Potassium 4.1, Chloride 103, Carbon Dioxide 27.0, Anion Gap 7, BUN 17, Creatinine 0.92, Estim Creat Clear Calc 39.70, Est GFR (MDRD) Af Amer 77, Est GFR (MDRD) Non-Af 64, BUN/Creatinine Ratio 18.5, Glucose 193 H, Calcium 9.5, Total Bilirubin 1.20 H, AST 656 H, ALT 357 H, Alkaline Phosphatase 125 H, Total Protein 6.9, Albumin 3.6, Globulin 3.3, Albumin/Globulin Ratio 1.1, Lipase > 5000 H 01/26/23 20:55: Urine Color Yellow, Urine Clarity Clear, Urine pH 8.0, Ur S pecific [place] 1.010, Urine Protein Negative, Urine Glucose (UA) 100 H, Urine Ketones Negative, Urine Occult Blood 10 H, Urine Nitrite Negative, Urine Bi lirubin Negative, Urine Urobilinogen Normal, Ur Leukocyte Esterase Negative, Urine RBC 0 SEEN, Urine WBC 0 SEEN, Ur Squamous Epith Cells 0 SEEN, Urine Bacteria 0 SEEN, Urine Mucus 0 SEEN 01/27/23 05:50: WBC 15.6 H, RBC 4.02 L, Hgb 12.5, Hct 39.6, MCV 98.5, MCH 31.1, MCHC 31.6 L, RDW Std Deviation 45.8 H, RDW Coeff of Omer 12.7, Plt Count 257, MPV 10.5, Immature Gran % (Auto) 0.600, Neut % (Auto) 80.9 H, Lymph % (Auto) 7.2 L, [place] % (Auto) 11.1 H, Eos % (Auto) 0.0, Baso % (Auto) 0.2, Absolute Neuts (auto) 12.6 H, Absolute Lymphs (auto) 1.12, Nucleated RBC % 0, Differential Comment SCANNED, Diff Path Review September, ESR < 1, Sodium 137, Potassium 3.8, Chloride 105, Carbon Dioxide 27.0, Anion Gap 5, BUN 14, Creatinine 0.82, Estim Creat Clear Calc 49.34, Est GFR (MDRD) Af Amer 88, Est GFR (MDRD) Non-Af 73, BUN/Creatinine Ratio 17.1, Glucose 126 H, Calcium 8.5, Total Bilirubin 0.90, AST 280 H, ALT 263 H, Alkaline Phosphatase 101, C-React Prot Ext Range 12.90 H, Total Protein 5.7 L, Albumin 3.0 L, Globulin 2.7, Albumin/Globulin Ratio 1.1 Radiography Diagnostic Testing: Radiology Impression Abdomen/Pelvis CT 01/26/23 19:11 IMPRESSION: New biliary stent and secondary pneumobilia. No significant intrahepatic ductal dilation. Inflammatory stranding densities region of the first and second portions of the duodenum and in the left pericolic gutter. Trace fluid left pericolic gutter and in the pelvis. Questionable mild wall thickening distal pyloric, proximal duodenal region questionable for origin of inflammatory changes. No ulcer visible. No free air. Pancreas is without areas of decreased enhancement or significant obscuration of pancreatic margins. Imaging does not exclude suspected pancreatitis and correlation with amylase and lipase is recommended. Duodenitis should be considered. No free air. Electronically Signed: Gianfranco Maikel, at 21:11 EDT , Physical Exam Const alert and oriented x3 Constitutional Narrative: looks moderately uncomfortable due to pain HEENT normocephalic, head/scalp atraumatic, moist oral mucous membranes and oropharynx normal Neck no lymphadenopathy and supple Lymph Lymphatic: no lymphadenopathy noted Resp Resp Narrative: mildly diminished breath sounds bibasally, no wheezes or crackles. Cardio regular rate, regular rhythm, S1 normal heart sound, S2 normal heart sound and no murmurs GI normal to inspection, nondistended, normoactive bowel sounds, soft to palpation, non-tender and non-distended Extremity normal capillary refill, no clubbing, cyanosis or edema and no calf tenderness Skin General Skin Exam: no breakdown and turgor normal Neuro CN's II-XII intact bilaterally, no focal motor deficits, no sensory deficits noted and deep tendon reflexes 2+ bilaterally Motor Exam: strength 5/5 throughout and general weakness Psych thought process normal, cooperative and affect normal Appearance: appropriate Assessment & Plan Assessment/Plan (1) Nausea & vomiting: (2) Post-ERCP acute pancreatitis: PLAN: Plan #Acute pancreatitis * post ERCP. Likely a consequence of ERCP * currently nPO * continue IV pain medication with morphine * hydrate with IVF * CT abdomen showed new biliary stent and pneumobilia as well as inflammatory stranding desnities of hte first and second portion of the duodenum and left pericolic gutter * GI consulted * #Hypoxia * patient noted to be hypoxic today. Placed on 2L of oxygen by nasal canula * get CXR * breathing treatment with bronchodilators. * #Sphincter of Oddi syndrome * She recently went to see gastroenterology on account of abdominal pain and gastroparesis was found to have choledocholithiasis and sphincter of Oddi syndrome. She had elevated AST and ALT and ALP and CT of the abdomen pelvis showed dilated pancreatic duct at dilated common bile duct. * She had ERCP yesterday which showed single segmental biliary stricture found in the lower third of the main bile duct and was benign-appearing. Entire main bile duct was otherwise dilated. Choledocholithiasis was found with complete removal and biliary sphincterectomy and balloon extraction. She had a temporary bile duct stent placed * #.Hypothyroidism: on synthroid #Hyperlipidemia: hold statin due to acute pancreatitis. DVT Prophylaxis: lovenox Charges/Coding Visit Charges Inpatient E&M: 18638 Subs Hosp L3
[2023-01-27 12:53] LABS: Pathologist Review Reviewed
--- NOTE | 2023-01-27 13:50 | RAD_ITS ---
STUDY: X-RAY CHEST REASON FOR EXAM: Female, 72 years old. Postoperative shortness of breath TECHNIQUE: PA and lateral views of the chest. COMPARISON: 08/05/2022 FINDINGS: Lungs are mildly hyperexpanded with chronic interstitial changes, there is interstitial edema noted in both lung ruth new since the previous study likely due to recent procedure. No organized infiltrate or effusion. There is no demonstrated pleural abnormality. Normal size heart. Normal mediastinum and bert. Normal visualized pulmonary arteries. There is atherosclerotic calcification of the aortic arch with tortuosity. There are diffuse degenerative changes of the visualized thoracic spine. There is degenerative osteoarthritis of the bilateral shoulders. There is no demonstrated abnormality of the visualized soft tissue structures of the upper abdomen. Biliary stent noted in the right upper quadrant. RAD/Chest PA and Lateral IMPRESSION: Mildly hyperexpanded lungs with chronic interstitial changes and mild interstitial edema likely due to the recent procedure. No organized infiltrate or effusion Electronically Signed: Madi Tang MD at 15:10 EDT ,
[2023-01-27] MEDS: Lactated Ringers 1,000 ML 200 ML IV ×2 (15:06→21:18)
--- NOTE | 2023-01-27 15:12 | CON.PCM.GI_ITS ---
HPI Consult Data Date of Consult: 01/27/23 HPI Narrative Reason for Consultation: Pancreatitis HPI Narrative: ALIX AVILA, is a 72 F who presents with abdominal pain after undergoing ERCP. She has a past medical history of hiatal heria, GERD, functional bowel disorder. PMH osteopenia/porosis, arthritis, COPD, atherosclerosis. She also has a history of gallstone induced pancreatitis status post cholecystectomy. She presented to the GI clinic earlier this year for the evaluation of increasing liver enzymes. When we first saw her her AST was 45 ALT 94 alkaline phosphatase 120, bilirubin 0.8 and a lipase of 427. It was concerned that she was having recurrent pancreatitis and she was concerned about the possible diagnosis of pancreatitis because her brother and sister both of pancreatic cancer. She has never had any genetic testing for hereditary pancreatic cancer. She underwent a CT scan abdomen pelvis on 08/05/2022 that showed dilated common bile duct larger than would be expected for postcholecystectomy state. Therefore MRCP was ordered and it showed a dilated pancreatic duct at 4 mm and a dilated common bile duct at 10 mm. Yesterday she underwent ERCP with dilation of the distal common bile duct stricture after sphincterotomy. She did have small choledocholithiasis that was removed with balloon sweep. She also had brushings taken of biliary stricture. A temporary biliary stent was placed yesterday. She her called me last night and said she was having abdominal pain so I told him to bring her to the hospital for evaluation. In the ED she was discovered to have increased liver enzymes consistent with recent instrumentation and possible retention of contrast and lipase greater than 5000. CT scan abdomen pelvis had shown some inflammation in the duodenum but no inflammation around the pancreatic duct. It also showed a biliary stent in place. Currently she rates her abdominal pain at a 6 out of 10. She has been nauseated throughout the day. She has not tried to eat anything. [facility] Medical History (Updated 01/27/23 @ 15:[address] Lopes Friend, DO) Anisometropia Anxiety Arthralgia Arthritis Bloating COPD (chronic obstructive pulmonary disease) Elevated alkaline phosphatase level Elevated lipase Former smoker Former smoker Functional intestinal disorder, unspecified GERD (gastroesophageal reflux disease) Hiatal hernia High cholesterol History of echocardiogram History of edema History of pain when walking History of stress test HLD (hyperlipidemia) Hypothyroidism Leg cramps Osteoporosis Post-menopausal Vitamin D deficiency Wears hearing aid Wears partial dentures Home Medications levothyroxine 75 mcg tablet 75 mcg PO DAILY 11/15/14 [History Last Taken Unkn own] pantoprazole 40 mg tablet,delayed release 40 mg PO BID 11/15/14 [History Last Taken Unknown] rosuvastatin 10 mg tablet 10 mg PO QODAY 03/26/17 [History Last Taken Unknown] alprazolam 0.5 mg tablet 0.5 mg PO DAILY PRN anxiety 08/10/22 [History Last Taken Unknown] cholecalciferol (vitamin D3) 50 mcg (2,000 unit) capsule 50 mcg PO DAILY 08/10/22 [History Last Taken Unknown] coenzyme Q10 100 mg capsule (Co Q-10) 100 mg PO DAILY heart health 01/26/23 [History Last Taken Unknown] Allergy/AdvReac Type Severity Reaction Status Date / Time Sulfa (Sulfonamide Allergy Intermediate Rash Verified 01/26/23 19:13 Antibiotics) ciprofloxacin [From Cipro] Allergy Swelling Verified 01/26/23 19:13 ciprofloxacin HCl Allergy Swelling Verified 01/26/23 19:13 [From Cipro] morphine AdvReac Inflammation Verified 01/26/23 19:13 of vein Family History Mother Diabetes Father Brain cancer Sister Cancer of kidney GERD (gastroesophageal reflux disease) Sister Atrial septal defect GERD (gastroesophageal reflux disease) Brother Atrial septal defect Surgical History (Updated 01/26/23 @ 23:52 by Michaela Acosta) H/O total hysterectomy History of cholecystectomy History of esophagogastroduodenoscopy (EGD) History of hip surgery Hx laparoscopic cholecystectomy Hx of colonoscopy Hx of discectomy Social History Smoking Status: Former smoker ROS ROS Narrative Pertinent positives and pertinent negatives as noted in HPI. All other systems were reviewed and are negative Physical Exam Const alert and oriented x3 Constitutional Narrative: looks moderately uncomfortable due to pain HEENT normocephalic, head/scalp atraumatic, moist oral mucous membranes and oropharynx normal Neck no lymphadenopathy and supple Lymph Lymphatic: no lymphadenopathy noted Resp Resp Narrative: mildly diminished breath sounds bibasally, no wheezes or crackles. Cardio regular rate, regular rhythm, S1 normal heart sound, S2 normal heart sound and no murmurs GI normal to inspection, nondistended, normoactive bowel sounds, soft to palpation, non-tender and non-distended Extremity normal capillary refill, no clubbing, cyanosis or edema and no calf tenderness Skin General Skin Exam: no breakdown and turgor normal Neuro CN's II-XII intact bilaterally, no focal motor deficits, no sensory deficits noted and deep tendon reflexes 2+ bilaterally Motor Exam: strength 5/5 throughout and general weakness Psych thought process normal, cooperative and affect normal Appearance: appropriate Lab / Micro Data 01/27/23 05:50 01/27/23 05:50 Labs: Laboratory Results - last 24 hr 01/26/23 19:15: WBC 15.1 H, RBC 4.70, Hgb 14.8, Hct 45.4, MCV 96.6, MCH 31.5, MCHC 32.6, RDW Std Deviation 44.9 H, RDW Coeff of Omer 12.4, Plt Count 274, MPV 9.8, Immature Gran % (Auto) 0.400, Neut % (Auto) 90.6 H, Lymph % (Auto) 5.0 L, [place] % (Auto) 3.7, Eos % (Auto) 0.0, Baso % (Auto) 0.3, Absolute Neuts (auto) 13.7 H, Absolute Lymphs (auto) 0.76 L, Nucleated RBC % 0, Sodium 137, Potassium 4.1, Chloride 103, Carbon Dioxide 27.0, Anion Gap 7, BUN 17, Creatinine 0.92, Estim Creat Clear Calc 39.70, Est GFR (MDRD) Af Amer 77, Est GFR (MDRD) Non-Af 64, BUN/Creatinine Ratio 18.5, Glucose 193 H, Calcium 9.5, Total Bilirubin 1.20 H, AST 656 H, ALT 357 H, Alkaline Phosphatase 125 H, Total Protein 6.9, Albumin 3.6, Globulin 3.3, Albumin/Globulin Ratio 1.1, Lipase > 5000 H 01/26/23 20:55: Urine Color Yellow, Urine Clarity Clear, Urine pH 8.0, Ur Specific [place] 1.010, Urine Protein Negative, Urine Glucose (UA) 100 H, Urine Ketones Negative, Urine Occult Blood 10 H, Urine Nitrite Negative, Urine Bilirubin Negative, Urine Urobilinogen Normal, Ur Leukocyte Esterase Negative, Urine RBC 0 SEEN, Urine WBC 0 SEEN, Ur Squamous Epith Cells 0 SEEN, Urine Bacteria 0 SEEN, Urine Mucus 0 SEEN 01/27/23 05:50: WBC 15.6 H, RBC 4.02 L, Hgb 12.5, Hct 39.6, MCV 98.5, MCH 31.1, MCHC 31.6 L, RDW Std Deviation 45.8 H, RDW Coeff of Omer 12.7, Plt Count 257, MPV 10.5, Immature Gran % (Auto) 0.600, Neut % (Auto) 80.9 H, Lymph % (Auto) 7.2 L, [place] % (Auto) 11.1 H, Eos % (Auto) 0.0, Baso % (Auto) 0.2, Absolute Neuts (auto) 12.6 H, Absolute Lymphs (auto) 1.12, Nucleated RBC % 0, Differential Comment SCANNED, Diff Path Review Reviewed, ESR < 1, Sodium 137, Potassium 3.8, Chloride 105, Carbon Dioxide 27.0, Anion Gap 5, BUN 14, Creatinine 0.82, Estim Creat Clear Calc 49.34, Est GFR (MDRD) Af Amer 88, Est GFR (MDRD) Non-Af 73, BUN/Creatinine Ratio 17.1, Glucose 126 H, Calcium 8.5, Total Bilirubin 0.90, AST 280 H, ALT 263 H, Alkaline Phosphatase 101, C-React Prot Ext Range 12.90 H, Total Protein 5.7 L, Albumin 3.0 L, Globulin 2.7, Albumin/Globulin Ratio 1.1 Radiology Impression Abdomen/Pelvis CT 01/26/23 19:11 IMPRESSION: New biliary stent and secondary pneumobilia. No significant intrahepatic ductal dilation. Inflammatory stranding densities region of the first and second portions of the duodenum and in the left pericolic gutter. Trace fluid left pericolic gutter and in the pelvis. Questionable mild wall thickening distal pyloric, proximal duodenal region questionable for origin of inflammatory changes. No ulcer visible. No free air. Pancreas is without areas of decreased enhancement or significant obscuration of pancreatic margins. Imaging does not exclude suspected pancreatitis and correlation with amylase and lipase is recommended. Duodenitis should be considered. No free air. Electronically Signed: Gianfranco Ko DO at 21:11 EDT , Chest X-Ray 01/27/23 13:50 IMPRESSION: Mildly hyperexpanded lungs with chronic interstitial changes and mild interstitial edema likely due to the recent procedure. No organized infiltrate or effusion Electronically Signed: Madi Tang MD at 15:10 EDT , Assessment & Plan Assessment/Plan (1) Post-ERCP acute pancreatitis: (2) Abdominal pain: QUALIFIERS: Abdominal location: epigastric Qualified Code(s): R10.13 - Epigastric pain (3) Nausea & vomiting: QUALIFIERS: Vomiting type: unspecified Qualified Code(s): R11.2 - Nausea with vomiting, unspecified PLAN: 72-year-old with history of choledocholithiasis induced pancreatitis, family history of pancreatic cancer, biliary stricture status post ERCP with dilation, stone removal and brushings of distal common bile duct stent who currently has pancreatitis. She is having a good response with IV fluids. Recommend to start on lactated Ringer's last night as it is associated with less acidity for volume resuscitation and acute pancreatitis. She is not having any fevers, chest pain or shortness of breath. I will increase her IV fluids up to 200 cc an hour. I will give her scheduled OxyContin 10 mg twice daily. I will also put her on scheduled senna and she will have as needed Compazine along with scheduled Reglan. Her CRP is not that high and there was no gross damage seen on the CT scan. Would recommend IV fluids at 200 cc an hour. Advance diet as tolerated. Continue supportive care. Charges/Coding Visit Charges Inpatient E&M: 57783 Init Hosp L3
[2023-01-27] MEDS: Senna/Docusate Sodium 1 Tablet 2 TABLET PO ×2 (15:16→21:21)
[2023-01-27] MEDS: Metoclopramide 10 MG/2 ML Vial 5 MG IV (17:39)
[2023-01-27] MEDS: oxyCODONE HCl Cr 10 MG Tablet PO ×2 (17:40→21:21)
[2023-01-28] VITALS (11 sets, daily range): BP systolic 107–140; BP diastolic 52–84; PULSE 81–94; RESP 16–20; TEMP 36.4–37.1; O2SAT 84–98
[2023-01-28] MEDS: Metoclopramide 10 MG/2 ML Vial 5 MG IV ×4 (01:00→17:03)
[2023-01-28] MEDS: Ibuprofen 400 MG Tablet PO (01:55)
[2023-01-28] MEDS: Lactated Ringers 1,000 ML 200 ML IV ×2 (01:56→07:58)
[2023-01-28] MEDS: Levothyroxine 75 MCG Tablet PO (05:37)
[2023-01-28 05:49] LABS: Absolute Lymphocyte Count 1.27 X10^3/uL (0.83-4.51); Absolute Neutrophil Count 14.4 X10^3/uL (2.0-7.7); Basophil# 0.04 X10^3/uL; Basophil% 0.2 % (0-1); Eosinophil# 0.09 X10^3/uL; Eosinophils% 0.5 % (0-5); Hematocrit 34.6 % (37-47); Hemoglobin 11.1 g/dL (12.0-15.0); Lymphocyte # 1.27 X10^3/ul (0.83-4.51); Lymphocyte % 7.4 % (19-41); Mean Corp Hgb Conc 32.1 g/dL (32-36); Mean Corpuscular Hgb 31.8 pg (27.0-32.0); Mean Corpuscular Volume 99.1 fL (81-99); Monocyte% 8.1 % (0-10); NRBC Flagged by Analyzer 0 % (0-5); Neutrophil # 14.35 X10^3/uL (2.7-7.7); Neutrophil % 83.2 % (47-70); Platelet Count 198 K/mm3 (150-450); RBC Distribution Width SD 47.5 fl (35.1-43.9); Red Blood Count 3.49 M/mm3 (4.2-5.4); White Blood Count 17.3 K/mm3 (4.4-11.0)
[2023-01-28 06:38] LABS: Anion Gap 2 (5-15); BUN 10 mg/dL (7-18); BUN/Creat Ratio 15.5 RATIO (10-20); Chloride 107 mmol/L (98-107); Creatinine, Serum 0.64 mg/dL (0.55-1.02); EST Glomerular Filtration Rate 96 mL/min (>60); Est Glom Filt Rate - Afr Amer 116 mL/min (>60); Estimated Creatinine Clearance 36.53 ml/min; Glucose 98 mg/dL (74-106); Potassium 3.5 mmol/L (3.5-5.1); Sodium Level 138 mmol/L (136-145)
[2023-01-28 07:18] LABS: Erythrocyte Sedimentation Rate 4 mm/hr (0-30)
[2023-01-28 07:49] LABS: Lipase 1098 U/L (13-75)
--- NOTE | 2023-01-28 08:51 | PN.HOSP_ITS ---
Reason for Visit Reason for Visit: Diagnoses Hypothyroidism, unspecified (01/26/23) Acute pancreatitis without necrosis or infection, unspecified (01/26/23) Other postprocedural complications and disorders of digestive system (01/26/23) Epigastric pain (01/26/23) Nausea with vomiting, unspecified (01/26/23) Subjective Subjective Still with abdominal pain. No current SOB. Objective Data Objective Data Vital Signs: Vital Signs Temp Pulse Resp BP Pulse Ox O2 Del Method O2 Flow Rate 36.4 C L 81 18 109/55 L 97 Nasal Cannula 2 01/28/23 05:31 01/28/23 05:31 01/28/23 05:31 01/28/23 05:31 01/28/23 05:31 01/28/23 08:37 01/28/23 08:37 Oxygen Flow Rate (L/min) [ 3 AMBULATING with Oxygen #1] Oxygen Flow Rate (L/min) [At 2 REST with Oxygen] Oxygen Flow Rate (L/min) 2 Oxygen Delivery Method Nasal Cannula Weight: 50.4 kg Body Mass Index (BMI) 21.8 Intake & Output: Intake and Output for Last 24 Hours 01/26/23 01/27/23 01/28/23 23:59 23:59 23:59 Intake Total 1000 / 1000 4060 / 4210 2076.67 / 2076.67 Output Total 400 / 400 Balance 1000 / 1000 4059 / 4209 1676.67 / 1676.67 Lab / Micro Data 01/28/23 05:24 01/28/23 05:24 Labs: Laboratory Results - last 24 hr 01/27/23 05:50: Diff Path Review Reviewed 01/28/23 05:24: WBC 17.3 H, RBC 3.49 L, Hgb 11.1 L, Hct 34.6 L, MCV 99.1 H, MCH 31.8, MCHC 32.1, RDW Std Deviation 47.5 H, RDW Coeff of Omer 13.0, Plt Count 198, MPV 10.0, Immature Gran % (Auto) 0.600, Neut % (Auto) 83.2 H, Lymph % (Auto) 7.4 L, [place] % (Auto) 8.1, Eos % (Auto) 0.5, Baso % (Auto) 0.2, Absolute Neuts (auto) 14.4 H, Absolute Lymphs (auto) 1.27, Nucleated RBC % 0, ESR 4, Sodium 138, Potassium 3.5, Chloride 107, Carbon Dioxide 29.0, Anion Gap 2 L, BUN 10, Creatinine 0.64, Estim Creat Clear Calc 36.53, Est GFR (MDRD) Af Amer 116, Est GFR (MDRD) Non-Af 96, BUN/Creatinine Ratio 15.5, Glucose 98, Calcium 8.0 L, C- React Prot Ext Range 101.00 H, Lipase 1098 H Radiography Diagnostic Testing: Radiology Impression Chest X-Ray 01/27/23 13:50 IMPRESSION: Mildly hyperexpanded lungs with chronic interstitial changes and mild interstitial edema likely due to the recent procedure. No organized infiltrate or effusion Electronically Signed: Madi Tang MD at 15:10 EDT , Physical Exam Const alert and no apparent distress HEENT head/scalp atraumatic and moist oral mucous membranes Resp normal respiratory effort, no retractions, no use of accessory muscles and clear to auscultation bilaterally Cardio regular rate, regular rhythm, S1 normal heart sound and S2 normal heart sound GI normal to inspection, nondistended, normoactive bowel sounds, soft to palpation, non-tender and non-distended Extremity normal to inspection Assessment & Plan Assessment/Plan (1) Post-ERCP acute pancreatitis: PLAN: 2/2 ERCP continue IV pain medication with morphine hydrate with IVF (LR) CT abdomen showed new biliary stent and pneumobilia as well as inflammatory stranding densities of the first and second portion of the duodenum and left pericolic gutter GI consulted Advance to transitional diet, if tolerates, can hopefully discharge home. (2) Hypoxia: PLAN: CXR unremarkable Physiotherapy Monitor closely for volume overload. (3) Choledocholithiasis: PLAN: subsequent had ERCP (prior to admission) with removal. Complicated by biliary stricture. stent placed. GI following h/o cholecystectomy PLAN: Plan Chronic conditions: * Hypothyroidism: on levothyroxine. * Hyperlipidemia: hold statin due to acute pancreatitis. DVT Prophylaxis: lovenox Charges/Coding Visit Charges Inpatient E&M: 88206 Subs Hosp L2
[2023-01-28] MEDS: oxyCODONE HCl Cr 10 MG Tablet PO (09:50)
[2023-01-28] MEDS: Enoxaparin 40 MG/0.4 ML Syringe SC (09:51)
[2023-01-28] MEDS: Magnesium Chloride 64 MG Delay Rel.Tablet 128 MG PO (09:52)
[2023-01-28] MEDS: Senna/Docusate Sodium 1 Tablet 2 TABLET PO (09:52)
[2023-01-28] MEDS: Furosemide 20 MG/2 ML VIAL IV ×2 (09:53→14:44)
[2023-01-28] MEDS: Ondansetron 4 MG/2 ML Vial IV (09:59)
[2023-01-28] MEDS: 0.9% Saline Lock 10 ML Syringe IV (14:44)
[2023-01-28] MEDS: Potassium Chloride Oral Tablet 20 MEQ PO (17:03)
[2023-01-28] MEDS: Acetaminophen 325 MG Tablet 650 MG PO (18:18)
[2023-01-28] MEDS: Lactated Ringers 1,000 ML 75 ML IV (18:19)
--- NOTE | 2023-01-28 18:45 | DS.PCM_ITS ---
Providers Date of Admission: 01/26/23 Primary Care Physician: JASPAL Del Cid Consultations 01/26/23 23:26 Consult: Gastroenterology Routine Consulting Provider: Moses Alcocer Reason for Consult: Post ERCP Pancreatitis EMERGENT Consult: No MD Notified: Yes Date Notified: 01/26/23 Time Notified: 22:26 Method of Notification: ED Physician Initiated Reason For Visit: ACUTE POST ERCP PANCREATITIS Diagnosis Discharge Diagnosis (1) Post-ERCP acute pancreatitis: Status: Acute Code(s): K91.89 - Other postprocedural complications and disorders of digestive system; K85.90 - Acute pancreatitis without necrosis or infection, unspecified Plan: 2/2 ERCP continue IV pain medication with morphine hydrate with IVF (LR) CT abdomen showed new biliary stent and pneumobilia as well as inflammatory stranding densities of the first and second portion of the duodenum and left pericolic gutter GI consulted Advance to transitional diet, if tolerates, can hopefully discharge home. (2) Hypoxia: Status: Acute Code(s): R09.02 - Hypoxemia Plan: CXR unremarkable Physiotherapy Monitor closely for volume overload. (3) Choledocholithiasis: Status: Acute Code(s): K80.50 - Calculus of bile duct without cholangitis or cholecystitis without obstruction Plan: subsequent had ERCP (prior to admission) with removal. Complicated by biliary stricture. stent placed. GI following h/o cholecystectomy Plan Chronic conditions: * Hypothyroidism: on levothyroxine. * Hyperlipidemia: hold statin due to acute pancreatitis. DVT Prophylaxis: lovenox Medications at Discharge Home Medications levothyroxine 75 mcg tablet 75 mcg PO DAILY 11/15/14 pantoprazole 40 mg tablet,delayed release 40 mg PO BID 11/15/14 rosuvastatin 10 mg tablet 10 mg PO QODAY 03/26/17 alprazolam 0.5 mg tablet 0.5 mg PO DAILY PRN anxiety 08/10/22 cholecalciferol (vitamin D3) 50 mcg (2,000 unit) capsule 50 mcg PO DAILY 08/10/22 coenzyme Q10 100 mg capsule (Co Q-10) 100 mg PO DAILY heart health 01/26/23 ibuprofen 400 mg tablet 400 mg PO Q6H PRN PRN FEVER, Pain 1-10 #0 tabs 01/28/23 ondansetron HCl 8 mg tablet 8 mg PO Q8H PRN nausea and vomiting #20 tabs 01/28/23 oxycodone 5 mg tablet 5 mg PO Q8H PRN pain 3 days #18 tabs 01/28/23 Hospital Course Operations None Procedures None Summary of Care Provided Minutes Spent on Discharge: 40 Weight / BMI Weight Weight: 50.4 kg Body Mass Index (BMI) 21.8 ABG / Lab / Microbiology Data 01/28/23 05:24 01/28/23 05:24 Laboratory: Laboratory Results - last 24 hr 01/28/23 05:24: WBC 17.3 H, RBC 3.49 L, Hgb 11.1 L, Hct 34.6 L, MCV 99.1 H, MCH 31.8, MCHC 32.1, RDW Std Deviation 47.5 H, RDW Coeff of Omer 13.0, Plt Count 198, MPV 10.0, Immature Gran % (Auto) 0.600, Neut % (Auto) 83.2 H, Lymph % (Auto) 7.4 L, [place] % (Auto) 8.1, Eos % (Auto) 0.5, Baso % (Auto) 0.2, Absolute Neuts (auto) 14.4 H, Absolute Lymphs (auto) 1.27, Nucleated RBC % 0, ESR 4, Sodium 138, Potassium 3.5, Chloride 107, Carbon Dioxide 29.0, Anion Gap 2 L, BUN 10, Creatinine 0.64, Estim Creat Clear Calc 36.53, Est GFR (MDRD) Af Amer 116, Est GFR (MDRD) Non-Af 96, BUN/Creatinine Ratio 15.5, Glucose 98, Calcium 8.0 L, C- React Prot Ext Range 101.00 H, Lipase 1098 H D/C Instructions Discharge Diet: No restrictions Meaningful Use Info Meaningful Use Diagnoses (Choose all that apply): None applicable Discharge Plan Admission Admit Date/Time: 01/26/23 21:37 Primary Reason for Your Visit: Pancreatitis Attending Provider: Carlos Acuña Primary Care Provider: Adriane Sarah Consulting Providers: Moses Alcocer; Golden Pinzon; Justyna Maloney Discharge Orders/Prescriptions Prescriptions: New ibuprofen 400 mg Tablet 400 mg PO Q6H PRN PRN (Reason: FEVER, Pain 1-10) Qty: 0 0RF ondansetron HCl 8 mg tablet 8 mg PO Q8H PRN (Reason: nausea and vomiting) Qty: 20 0RF Rx Instructions: 1st dose 1-2 hr before radiation oxycodone 5 mg tablet 5 mg PO Q8H PRN (Reason: pain) 3 Days Qty: 18 0RF Continued cholecalciferol (vitamin D3) 50 mcg (2,000 unit) capsule 50 mcg PO DAILY alprazolam 0.5 mg tablet 0.5 mg PO DAILY PRN (Reason: anxiety) levothyroxine 75 MCG tablet 75 mcg PO DAILY Patient Comments: THYROID pantoprazole 40 MG tablet 40 mg PO BID Patient Comments: REFLUX rosuvastatin 10 MG tablet 10 mg PO QODAY Patient Comments: CHOLESTEROL coenzyme Q10 [Co Q-10] 100 mg capsule 100 mg PO DAILY Referrals / Follow Up: Adriane Sarah, [facility] [Primary Care Provider] - Disposition Disposition (needs filled in before D/C Order can be placed): Home, Self Care Charges/Coding Visit Charges Inpatient E&M: 31926 Disch Hosp >30min
--- NOTE | 2023-01-28 19:22 | PN.GI_ITS ---
Subjective Subjective Patient has been feeling a lot better. She has been urinating but has not had a bowel movement yet. She did eat some macaroni and cheese. Objective Data Objective Data Vital Signs: Vital Signs Temp Pulse Resp BP Pulse Ox O2 Del Method O2 Flow Rate 98.7 F 85 16 107/58 L 95 Nasal Cannula 2 01/28/23 17:00 01/28/23 17:00 01/28/23 17:00 01/28/23 17:00 01/28/23 17:00 01/28/23 17:00 01/28/23 17:00 Oxygen Flow Rate (L/min) [ 3 AMBULATING with Oxygen #1] Oxygen Flow Rate (L/min) [At 2 REST with Oxygen] Oxygen Flow Rate (L/min) 2 Oxygen Delivery Method Nasal Cannula Weight: 111 lb 1.808 oz Body Mass Index (BMI) 21.8 Intake & Output: Intake and Output for Last 24 Hours 01/26/23 01/27/23 01/28/23 23:59 23:59 23:59 Intake Total 1000 / 1000 4060 / 4210 3426.67 / 3426.67 Output Total 400 / 400 Balance 1000 / 1000 4059 / 4209 3026.67 / 3026.67 Lab / Micro Data 01/28/23 05:24 01/28/23 05:24 Labs: Laboratory Results - last 24 hr 01/28/23 05:24: WBC 17.3 H, RBC 3.49 L, Hgb 11.1 L, Hct 34.6 L, MCV 99.1 H, MCH 31.8, MCHC 32.1, RDW Std Deviation 47.5 H, RDW Coeff of Omer 13.0, Plt Count 198, MPV 10.0, Immature Gran % (Auto) 0.600, Neut % (Auto) 83.2 H, Lymph % (Auto) 7.4 L, [place] % (Auto) 8.1, Eos % (Auto) 0.5, Baso % (Auto) 0.2, Absolute Neuts (auto) 14.4 H, Absolute Lymphs (auto) 1.27, Nucleated RBC % 0, ESR 4, Sodium 138, Potassium 3.5, Chloride 107, Carbon Dioxide 29.0, Anion Gap 2 L, BUN 10, Creatinine 0.64, Estim Creat Clear Calc 36.53, Est GFR (MDRD) Af Amer 116, Est GFR (MDRD) Non-Af 96, BUN/Creatinine Ratio 15.5, Glucose 98, Calcium 8.0 L, C- React Prot Ext Range 101.00 H, Lipase 1098 H Physical Exam Const alert and no apparent distress HEENT head/scalp atraumatic and moist oral mucous membranes Resp normal respiratory effort, no retractions, no use of accessory muscles and clear to auscultation bilaterally Cardio regular rate, regular rhythm, S1 normal heart sound and S2 normal heart sound GI normal to inspection, nondistended, normoactive bowel sounds, soft to palpation, non-tender and non-distended Extremity normal to inspection Assessment & Plan Assessment/Plan (1) Nausea & vomiting: QUALIFIERS: Vomiting type: unspecified Qualified Code(s): R11.2 - Nausea with vomiting, unspecified (2) Post-ERCP acute pancreatitis: PLAN: Plan #Acute pancreatitis * post ERCP. Likely a consequence of ERCP * currently nPO * continue IV pain medication with morphine * hydrate with IVF * CT abdomen showed new biliary stent and pneumobilia as well as inflammatory stranding desnities of hte first and second portion of the duodenum and left pericolic gutter * Patient is doing a lot better and wants to go home. * #Hypoxia * patient noted to be hypoxic today. Placed on 2L of oxygen by nasal canula * get CXR * breathing treatment with bronchodilators. * She will walk around without oxygen and make sure she does not need oxygen at home. #Sphincter of Oddi syndrome * She recently went to see gastroenterology on account of abdominal pain and gastroparesis was found to have choledocholithiasis and sphincter of Oddi syndrome. She had elevated AST and ALT and ALP and CT of the abdomen pelvis showed dilated pancreatic duct at dilated common bile duct. * She had ERCP yesterday which showed single segmental biliary stricture found in the lower third of the main bile duct and was benign-appearing. Entire main bile duct was otherwise dilated. Choledocholithiasis was found with complete removal and biliary sphincterectomy and balloon extraction. She had a temporary bile duct stent placed * #.Hypothyroidism: on synthroid #Hyperlipidemia: hold statin due to acute pancreatitis. DVT Prophylaxis: lovenox Charges/Coding Visit Charges Inpatient E&M: 21351 Subs Hosp L3
--- NOTE | 2023-01-28 20:20 | NURSING ---
This RN talked to Andrés from [employer] for pt's home 02 set up with discharge.
--- NOTE | 2023-01-28 20:24 | NURSING ---
Pt was discharged with belongings at this time. [place] [facility] [place]. states he has already been contacted by them for o2 delivery tonight. IV and tele off.
--- NOTE | 2023-02-02 10:30 | NURSING ---
norman cm phone call made. spoke with saute chef . had many questions. All answered and patient's appreciative of call. alisa 11 [address] 3
== END 2023-01-28 20:24 | disposition home or self-care (01) | DRG 393 ==
LOC: ED 21:43 → PCU 22:11
PROVIDERS: Internal Medicine Gastroenterology; Student in an Organized Health Care Education/Training Program; Admitting Provider Hospitalist; Emergency Provider Emergency Medicine; PCP Nurse Practitioner Family
DX: K91.89 Other postprocedural complications and disorders of digestive system (principal); K85.80 Other acute pancreatitis without necrosis or infection; K80.51 Calculus of bile duct without cholangitis or cholecystitis with obstruction; J44.9 Chronic obstructive pulmonary disease, unspecified; E03.9 Hypothyroidism, unspecified; E78.00 Pure hypercholesterolemia, unspecified; K83.4 Spasm of sphincter of Oddi; E55.9 Vitamin D deficiency, unspecified; G89.29 Other chronic pain; R09.02 Hypoxemia; Z90.49 Acquired absence of other specified parts of digestive tract; Z79.899 Other long term (current) drug therapy; Z87.891 Personal history of nicotine dependence; Z80.0 Family history of malignant neoplasm of digestive organs
CPT/HCPCS: 36415; 71046; 74177; 74328; 76000; 80048; 80053; 81001; 83690; 85025; 85652; 86140; 88108; 88161; 88305; 88313; 93005; 99284; J7030; J7120; Q9967; A4216; J1940; J2405

== ENCOUNTER 2023-02-14 08:18 | Emergency (ER) | payer MEDICARE, SELFPAY ==
[2023-02-14 08:20] VITALS: BP 85/71; PULSE 108; RESP 20; TEMP 36.7; O2SAT 97; BMI 19.6
--- NOTE | 2023-02-14 08:48 | EKG12_ITS ---
Test Reason : PRE OP Blood Pressure : / mmHG Vent. Rate : 072 BPM Atrial Rate : 072 BPM P-R Int : 134 ms QRS Dur : 070 ms QT Int : 410 ms P-R-T Axes : 055 028 077 degrees QTc Int : 448 ms Normal sinus rhythm Nonspecific T wave abnormality Abnormal ECG Confirmed by KATHY ARREOLA, MARVEL ([id number]), editor & co founder JAMI MOORE ([id number]) on 02/16/2023 1:49:44 PM Referred By: FRIEND Confirmed By:ANA LUISA CHAVEZ MD
--- NOTE | 2023-02-14 08:52 | ED.VIS.CHEST ---
HPI History of Present Illness Chief Complaint: Chest Pain Informant: patient and spouse/S.O. Narrative Narrative: 2-day history recurrent left-sided chest pain with abdominal pain and nausea vomiting. No hematemesis. Reports history of sick ERCP [address] Alcocer, subsequent pancreatitis was admitted to the hospital that evening for 2 days. Pain in her abdomen has been waxing and waning vomiting subsided until 2 days ago. Cholecystectomy in the past. Per spouse ERCP secondary to dilated common bile duct, found to have stones, status post stent and biopsy. Reported biopsy results were negative. Denies any cardiac history. Denies cough. Denies diarrhea. Blood pressure slightly low on arrival, per spouse states typically runs low. Reports allergy to morphine that was towed from her hip surgery. From records noting vein inflammation. Prior Similar Symptoms: Yes PFSH PFSH Medical History Anisometropia Anxiety Arthralgia Arthritis Bloating COPD (chronic obstructive pulmonary disease) Elevated alkaline phosphatase level Elevated lipase Former smoker Former smoker Functional intestinal disorder, unspecified GERD (gastroesophageal reflux disease) Hiatal hernia High cholesterol History of echocardiogram History of edema History of pain when walking History of stress test HLD (hyperlipidemia) Hypothyroidism Leg cramps Osteoporosis Post-menopausal Vitamin D deficiency Wears hearing aid Wears partial dentures Home Medications levothyroxine 75 mcg tablet 75 mcg PO DAILY 11/15/14 [History Last Taken Unknown] pantoprazole 40 mg tablet,delayed release 40 mg PO BID 11/15/14 [History Last Taken Unknown] rosuvastatin 10 mg tablet 10 mg PO QODAY 03/26/17 [History Last Taken Unknown] alprazolam 0.5 mg tablet 0.5 mg PO DAILY PRN anxiety 08/10/22 [History Last Taken Unknown] cholecalciferol (vitamin D3) 50 mcg (2,000 unit) capsule 50 mcg PO DAILY 08/10/22 [History Last Taken Unknown] coenzyme Q10 100 mg capsule (Co Q-10) 100 mg PO DAILY heart health 01/26/23 [History Last Taken Unknown] docusate sodium 100 mg capsule (Colace) 100 mg PO BID #60 caps 01/28/23 [Rx Last Taken Unknown] ibuprofen 400 mg tablet 400 mg PO Q6H PRN PRN FEVER, Pain 1-10 #0 tabs 01/28/23 [Rx Last Taken Unknown] ondansetron HCl 8 mg tablet 8 mg PO Q8H PRN nausea and vomiting #20 tabs 01/28/23 [Rx Last Taken Unknown] oxycodone 5 mg tablet 5 mg PO Q8H PRN pain 3 days #18 tabs 01/28/23 [Rx Last Taken Unknown] ondansetron 4 mg disintegrating tablet 4 mg PO Q8H PRN PRN Nausea #10 tabs 02/14/23 [Rx Last Taken Unknown] Allergy/AdvReac Type Severity Reaction Status Date / Time Sulfa (Sulfonamide Allergy Intermediate Rash Verified 01/26/23 19:13 Antibiotics) ciprofloxacin [From Cipro] Allergy Swelling Verified 01/26/23 19:13 ciprofloxacin HCl Allergy Swelling Verified 01/26/23 19:13 [From Cipro] morphine AdvReac Inflammation Verified 01/26/23 19:13 of vein Family History Mother Diabetes Father Brain cancer Sister Cancer of kidney GERD (gastroesophageal reflux disease) Sister Atrial septal defect GERD (gastroesophageal reflux disease) Brother Atrial septal defect Surgical History (Updated 01/26/23 @ 23:52 by Michaela Acosta) H/O total hysterectomy History of cholecystectomy History of esophagogastroduodenoscopy (EGD) History of hip surgery Hx laparoscopic cholecystectomy Hx of colonoscopy Hx of discectomy Social History Smoking Status: Former smoker ROS ROS ED Constitutional Constitutional ED: Denies chills, fever(s) or sweats Eyes Eyes: Denies change in vision ENT ENT ED: Denies dysphagia or sore throat Cardiovascular Cardiovascular: Reports chest pain; Denies leg edema, palpitations or racing heartbeat Respiratory/Chest Respiratory/Chest: Denies cough, dyspnea or dyspnea on exertion Gastrointestinal Gastrointestinal: Reports abdominal pain, nausea and vomiting; Denies diarrhea Genitourinary Genitourinary ED: Denies dysuria, hematuria or urinary frequency Musculoskeletal Musculoskeletal: Denies back pain, extremity pain or neck pain Integumentary Denies rash or wounds Neurologic Neurologic: Denies headache(s), paresthesias or weakness EXAM Physical Exam Const Vital Signs: 02/14/23 08:20 02/14/23 08:34 02/14/23 12:34 Temperature 98.1 F Temperature Source Temporal Pulse Rate 108 H 74 Respiratory Rate 20 H 13 Respiratory Effort Normal Blood Pressure 85/71 L 122/77 H Blood Pressure Mean 75 92 Pulse Ox 97 97 Oxygen Delivery Method Room Air Room Air 02/14/23 12:59 Temperature Temperature Source Pulse Rate Respiratory Rate Respiratory Effort Blood Pressure 122/77 H Blood Pressure Mean Pulse Ox Oxygen Delivery Method Positive well nourished and well developed General Appearance ED: well developed and NAD HEENT Reports dry mucous membranes normocephalic and atraumatic Mouth ED: Yes dry mucous membranes Mouth: dry mucous membranes Eyes PERRL, EOMs intact bilaterally and conjunctivae normal General Eye ED: Yes normal appearance of both eyes Neck no lymphadenopathy and supple General: Negative for tenderness Chest Wall Chest: Negative for tenderness Resp normal respiratory effort and normal air movement Effort and Inspection: symmetric chest movement; Negative for respiratory distress Cardio regular rate, regular rhythm and no murmurs Peripheral Pulses: pulses 2+ throughout GI normal to inspection, nondistended, normoactive bowel sounds GI Narrative: Tender palpation mid abdomen, there is no guarding or rebound. Palpation: Negative for guarding or rebound tenderness present Back/Spine no CVA tenderness and no thoracic nor lumbar tenderness Extremity normal to inspection General Extremety ED: Negative for edema or tenderness General Extremity: Negative for edema Neuro oriented x3 and no sensory deficits noted Sensorium / Orientation: awake and alert Skin no rashes or lesions noted and no wounds Heart Score History: Slightly/Non-Suspicious ECG: Normal Age: >/= 65 years Risk Factors: 1 or 2 Risk Factors Troponin: </= Normal Limit Score: 3 MDM MDM MDM Narrative Medical decision making narrative: Interventions / MDM: Differential diagnosis: Pancreatitis, electrolyte abnormalities, dehydration Diagnosis considered but do not suspect: N/A My EKG interpretation: Sinus rate of 94, no ST changes. Isolated T wave inversion in aVL. Artifact on the lateral leads at baseline. Imaging independently reviewed and interpreted by myself: 2 view chest x-ray: No acute process. External documents reviewed: Pathology from biopsy negative for malignant cells. Test considered but not ordered:N/A ED course: Pressure 85/71 on arrival home in the room 99 systolic. Dry mucosal membranes. EKG sinus rhythm. Cardiac work-up with abdominal labs. Suspect recurrent pancreatitis with her history. 1115: Symptoms improved with 1 treatment. Blood pressure heart rate improved. Labs chronic leukocytosis 17.6. Trend down the lipase to 172 from 1000 a couple weeks ago. Initially was 5. Normalized liver enzymes. Patient's creatinine 1.2 up from 0.6. Clinical dehydration prerenal cause from vomiting. Given additional liter of fluids we will plan to p.o. challenge. Abdomen remains soft on reevaluation. Do not feel reimaging is necessary at this time. Troponin negative. Patient given total 2 L of normal saline fluid. Heart rate blood pressure improved. She is tolerating p.o. intake in the ED. Discharge prescription for Zofran to use Tylenol as needed. Outpatient follow-up and recheck labs with strict return precautions. All questions were answered. Disposition discussed with patient/family/significant other: Patient and significant other Case discussed with consulting clinician: N/A This note was generated with [employer] dictation software. It may contain incorrect words, spelling, and punctuation that were not noted in checking the note before signing. Lab Data Attestation: I reviewed the patient's lab results. Labs: Laboratory Results - last 24 hr 02/14/23 08:40 WBC 17.6 H RBC 4.00 L Hgb 13.0 Hct 39.1 MCV 97.8 MCH 32.5 H MCHC 33.2 RDW Std Deviation 45.6 H RDW Coeff of Omer 12.8 Plt Count 578 H MPV 9.0 Immature Gran % (Auto) 0.400 Neut % (Auto) 89.6 H Lymph % (Auto) 5.4 L [place] % (Auto) 4.2 Eos % (Auto) 0.1 Baso % (Auto) 0.3 Absolute Neuts (auto) 15.8 H Absolute Lymphs (auto) 0.95 Nucleated RBC % 0 Sodium 136 Potassium 3.7 Chloride 103 Carbon Dioxide 26.0 Anion Gap 7 BUN 13 Creatinine 1.22 H Estim Creat Clear Calc 29.94 Est GFR (MDRD) Af Amer 56 L Est GFR (MDRD) Non-Af 46 L BUN/Creatinine Ratio 10.7 Glucose 202 H Calcium 9.2 Total Bilirubin 0.50 Direct Bilirubin 0.26 AST 18 ALT 13 Alkaline Phosphatase 105 Troponin I High Sens 6 Total Protein 7.3 Albumin 2.8 L Globulin 4.5 H Lipase 172 H Radiography Diagnostic Testing: Clinical Impression(s) from Imaging Studies Chest X-Ray 02/14/23 09:00 IMPRESSION: No acute pulmonary process Electronically Signed: Madi Tang MD at 9:24 EDT Reading Location ID and State: [facility] / ID , Service support , Discharge Plan Triage Chief Complaint: Chest Pain ED Provider: Isaak Henry Dx/Rx/DC Orders Clinical Impression: Abdominal pain, Chest pain, Vomiting, Dehydration Instructions: Abdominal Pain, ED Chest Pain, Noncardiac, ED Vomiting (Adult) Prescriptions: New ondansetron [ondansetron] 4 mg tablet,disintegrating 4 mg PO Q8H PRN PRN (Reason: Nausea) Qty: 10 0RF No Action cholecalciferol (vitamin D3) 50 mcg (2,000 unit) capsule 50 mcg PO DAILY alprazolam 0.5 mg tablet 0.5 mg PO DAILY PRN (Reason: anxiety) levothyroxine 75 MCG tablet 75 mcg PO DAILY Patient Comments: THYROID pantoprazole 40 MG tablet 40 mg PO BID Patient Comments: REFLUX rosuvastatin 10 MG tablet 10 mg PO QODAY Patient Comments: CHOLESTEROL coenzyme Q10 [Co Q-10] 100 mg capsule 100 mg PO DAILY ibuprofen 400 mg Tablet 400 mg PO Q6H PRN PRN (Reason: FEVER, Pain 1-10) Qty: 0 0RF ondansetron HCl 8 mg tablet 8 mg PO Q8H PRN (Reason: nausea and vomiting) Qty: 20 0RF Rx Instructions: 1st dose 1-2 hr before radiation oxycodone 5 mg tablet 5 mg PO Q8H PRN (Reason: pain) 3 Days Qty: 18 0RF docusate sodium [Colace] 100 mg capsule 100 mg PO BID Qty: 60 0RF Primary Care Provider: Adriane Sarah Referrals: Adriane Sarah NP-C [Primary Care Provider] - 3-5 Days Activity Restrictions/Additional Instructions: Your creatinine 1.22 up from 0.6. Lipase down to 172. This was down from initially 5000 on hospitalization 1000 on discharge. You are given 2 L of fluid. Your symptoms are improving. Continue oral fluids for hydration. Follow-up with your doctor recheck labs, return if worsening or recurrent symptoms Disposition Disposition: Home, Self Care Discharge Date/Time: 02/14/23 12:59
[2023-02-14 08:59] LABS: Absolute Lymphocyte Count 0.95 X10^3/uL (0.83-4.51); Absolute Neutrophil Count 15.8 X10^3/uL (2.0-7.7); Basophil# 0.06 X10^3/uL; Basophil% 0.3 % (0-1); Eosinophil# 0.02 X10^3/uL; Eosinophils% 0.1 % (0-5); Hematocrit 39.1 % (37-47); Lymphocyte # 0.95 X10^3/ul (0.83-4.51); Lymphocyte % 5.4 % (19-41); Mean Corp Hgb Conc 33.2 g/dL (32-36); Mean Corpuscular Hgb 32.5 pg (27.0-32.0); Mean Corpuscular Volume 97.8 fL (81-99); Monocyte# 0.74 X10^3/uL; Monocyte% 4.2 % (0-10); NRBC Flagged by Analyzer 0 % (0-5); Neutrophil % 89.6 % (47-70); Platelet Count 578 K/mm3 (150-450); RBC Distribution Width CV 12.8 % (11.6-14.6); RBC Distribution Width SD 45.6 fl (35.1-43.9); White Blood Count 17.6 K/mm3 (4.4-11.0)
--- NOTE | 2023-02-14 09:00 | RAD_ITS ---
STUDY: X-RAY CHEST REASON FOR EXAM: Female, 72 years old. Chest pain/pressure TECHNIQUE: PA and lateral views of the chest. COMPARISON: 01/27/2023 FINDINGS: EKG leads overlie the chest. The lungs are clear and expanded. There is no demonstrated pleural abnormality. Normal size heart. Normal mediastinum and bert. Normal visualized pulmonary arteries. Normal visualized aortic arch and descending thoracic aorta. Normal visualized thoracic spine. Normal visualized ribs, clavicles, and shoulders. Biliary stent noted RAD/Chest PA and Lateral IMPRESSION: No acute pulmonary process Electronically Signed: Madi Tang MD at 9:24 EDT ,
[2023-02-14] MEDS: fentaNYL 100 MCG/2 ML Ampul 25 MCG IV (09:04)
[2023-02-14] MEDS: Ondansetron 4 MG/2 ML Vial IV (09:04)
[2023-02-14] MEDS: 0.9% Normal Saline (1000mL) 1,000 ML 1000 ML IV (09:04)
[2023-02-14 09:16] LABS: AST(SGOT) 18 U/L (15-37); Alanine Aminotransfer ALT/SGPT 13 U/L (13-56); Albumin, Serum 2.8 g/dL (3.2-5.0); Alkaline Phosphatase 105 U/L (45-117); Anion Gap 7 (5-15); BUN 13 mg/dL (7-18); BUN/Creat Ratio 10.7 RATIO (10-20); Bilirubin, Direct 0.26 mg/dL (0.00-0.30); Calcium,Total 9.2 mg/dL (8.5-10.1); Chloride 103 mmol/L (98-107); Creatinine, Serum 1.22 mg/dL (0.55-1.02); EST Glomerular Filtration Rate 46 mL/min (>60); Est Glom Filt Rate - Afr Amer 56 mL/min (>60); Estimated Creatinine Clearance 29.94 ml/min; Globulin 4.5 g/dL (2.2-4.2); Glucose 202 mg/dL (74-106); Lipase 172 U/L (13-75); Potassium 3.7 mmol/L (3.5-5.1); Protein, Total 7.3 g/dL (6.4-8.2); Sodium Level 136 mmol/L (136-145); Troponin-I HS 6 pg/mL (3.0-54.0)
[2023-02-14] MEDS: 0.9% Normal Saline (1000mL) 1,000 ML 999 ML IV (11:25)
[2023-02-14 12:34] VITALS: BP 122/77; PULSE 74; RESP 13; O2SAT 97
[2023-02-14 12:59] VITALS: BP 122/77
== END 2023-02-14 12:59 | disposition home or self-care (01) ==
PROVIDERS: Emergency Provider Emergency Medicine; PCP Nurse Practitioner Family; Visit Provider Emergency Medicine
DX: R10.9 Unspecified abdominal pain (principal); R07.9 Chest pain, unspecified; R11.10 Vomiting, unspecified; E86.0 Dehydration; Z87.891 Personal history of nicotine dependence
CPT/HCPCS: 71046; 80048; 80076; 83690; 84484; 85025; 93005; J7030; A4216; J2405

== ENCOUNTER 2023-02-14 17:31 | Inpatient (IN) | payer MEDICARE, SELFPAY ==
[2023-02-14 17:31] VITALS: BP 159/80; PULSE 85; RESP 16; TEMP 36.3; O2SAT 96; BMI 19.5
--- NOTE | 2023-02-14 17:53 | CT_ITS ---
STUDY: CT ABDOMEN AND PELVIS WITH CONTRAST REASON FOR EXAM: Female, 72 years old. Epigastric Pain RADIATION DOSAGE (If Supplied By Facility): CTDIvol = ( 13.86 ) mGy, DLP = ( 361.08 ) mGycm TECHNIQUE: Transaxial images were obtained from the dome of the diaphragm to the symphysis pubis without oral contrast. IV 100mL Isovue-[id number] was administered. Sagittal and coronal images were reconstructed. Individualized dose optimization techniques were used for this CT. COMPARISON: 01/26/2023. FINDINGS: Trace bilateral subpleural atelectasis, otherwise clear lung bases. The visualized portions of the heart are within normal limits. Normal liver. Nonvisualized gallbladder consistent with known history of prior cholecystectomy. There is intra and extrahepatic pneumobilia. Normal spleen. There is stranding/inflammation surrounding the pancreas. There are several areas of fluid collections surrounding the pancreas and more so along the inferior aspect and left superolateral pancreatic tail, difficult to measure and largest averaging approximately 2.8 x 1.5 cm. There is a biliary stent in place with mild distention of the mid proximal common bile duct up to 10 mm. Normal bilateral adrenal glands. There is a right upper no pole simple cyst measuring 2.2 cm, otherwise normal right kidney. Tiny low-attenuation structure within the mid lower pole of the left kidney measuring 7 mm. Otherwise normal left kidney. Normal visualized stomach. Normal small intestine. There are multiple colonic diverticula consistent with diverticulosis. The appendix is visualized and appears normal. There is diffuse atherosclerotic calcification of the abdominal aorta, without a demonstrated aneurysm. Normal inferior vena cava. Normal retroperitoneum. Normal urinary bladder. There is absence of the uterus consistent with a prior hysterectomy. Normal abdominal wall. Diffuse osteopenia/osteoporosis with degenerative disease of the spine, more severe at L4-L5. Status post ORIF surgery of the proximal right femur. CT/Abdomen/Pelvis W IV Cont ONLY IMPRESSION: Findings consistent with persistent pancreatitis with numerous and somewhat confluent peripancreatic and fairly encapsulated fluid collections which could represent early peripancreatic pseudocyst formation. Cannot exclude infectious process. Bilateral simple renal cysts, otherwise remainder of abdominal viscera are unremarkable. No acute appendicitis or bowel obstruction. Diverticulosis with no signs of diverticulitis. Electronically Signed: Dominga Escobedo MD at 19:01 EDT ,
--- NOTE | 2023-02-14 17:54 | ED.VIS.GI ---
HPI HPI - GI History of Present Illness Chief Complaint: Abd Pain Narrative Narrative: 72-year-old female presents with epigastric pain, nausea, and vomiting. According to the patient and her , she had an ERCP approximately [address] Alcocer. She developed post ERCP pancreatitis with a states that she had a stent placed on January 26. She got better for a little bit but on Wednesday developed nausea and vomiting and epigastric pain again. She was seen in the emergency department this morning where laboratory work was performed, but discharged. She has vomited 3-4 times since then without any blood in her emesis. Her states that he called Dr. Alcocer, and she was sent back to the emergency department for CT imaging and repeat laboratory work. [facility] Medical History Anisometropia Anxiety Arthralgia Arthritis Bloating COPD (chronic obstructive pulmonary disease) Elevated alkaline phosphatase level Elevated lipase Former smoker Former smoker Functional intestinal disorder, unspecified GERD (gastroesophageal reflux disease) Hiatal hernia High cholesterol History of echocardiogram History of edema History of pain when walking History of stress test HLD (hyperlipidemia) Hypothyroidism Leg cramps Osteoporosis Post-menopausal Vitamin D deficiency Wears hearing aid Wears partial dentures Home Medications levothyroxine 75 mcg tablet 75 mcg PO DAILY 11/15/14 [History Last Taken Unknown] pantoprazole 40 mg tablet,delayed release 40 mg PO QHS 11/15/14 [History Last Taken Unknown] rosuvastatin 10 mg tablet 10 mg PO QODAY 03/26/17 [History Last Taken Unknown] alprazolam 0.5 mg tablet 0.5 mg PO DAILY PRN anxiety 08/10/22 [History Last Taken Unknown] cholecalciferol (vitamin D3) 50 mcg (2,000 unit) capsule 50 mcg PO DAILY 08/10/22 [History Last Taken Unknown] coenzyme Q10 100 mg capsule (Co Q-10) 100 mg PO DAILY heart health 01/26/23 [History Last Taken Unknown] ondansetron HCl 8 mg tablet 8 mg PO Q8H PRN nausea and vomiting #20 tabs 01/28/23 [Rx Last Taken Unknown] oxycodone 5 mg tablet 5 mg PO Q8H PRN pain 3 days #18 tabs 01/28/23 [Rx Last Taken Unknown] docusate sodium 100 mg capsule (Colace) 100 mg PO QHS 02/14/23 [History Last Taken Unknown] Allergy/AdvReac Type Severity Reaction Status Date / Time Sulfa (Sulfonamide Allergy Intermediate Rash Verified 02/14/23 17:38 Antibiotics) ciprofloxacin [From Cipro] Allergy Swelling Verified 02/14/23 17:38 ciprofloxacin HCl Allergy Swelling Verified 02/14/23 17:38 [From Cipro] morphine AdvReac Inflammation Verified 02/14/23 17:38 of vein Family History Mother Diabetes Father Brain cancer Sister Cancer of kidney GERD (gastroesophageal reflux disease) Sister Atrial septal defect GERD (gastroesophageal reflux disease) Brother Atrial septal defect Surgical History H/O total hysterectomy History of cholecystectomy History of esophagogastroduodenoscopy (EGD) History of hip surgery Hx laparoscopic cholecystectomy Hx of colonoscopy Hx of discectomy Social History Smoking Status: Former smoker ROS ROS ED ROS Narrative Constitutional: No fever, no chills. HEENT: No sore throat. No neck pain. No loss of vision. No rhinorrhea. Cardiovascular: No chest pain. No palpitations. No pedal edema. Respiratory: No cough, no shortness of breath. Abdominal: Epigastric abdominal pain. 3-4 episodes of nonbloody vomiting with continued nausea since discharge from ED today at noon, approximately 6 hours ago. Genitourinary: No dysuria. No hematuria. Musculoskeletal: No myalgias. No arthralgias. Neurologic: No headaches. No dizziness. No lightheadedness. Skin: No rash. No change in color. Psychiatric: No depression. No anxiety. EXAM Physical Exam Narrative Exam Narrative: Afebrile. Vital signs noted. HEENT: Normocephalic. Atraumatic. PERRL, EOMI. Neck soft and supple. No point tenderness or step off. Cardiovascular: Regular rate and rhythm. No murmurs, rubs, or gallops appreciated. Respiratory: No tachypnea. Lungs clear to auscultation bilaterally. Gastrointestinal: Abdomen soft, tenderness to palpation in epigastrium with normoactive bowel sounds. No rebound or guarding. Neurological: Awake. Alert. Nonfocal, nonlateralizing. Skin: No rash. Normal color. No pallor. Musculoskeletal: No pedal edema. Full range of motion extremities. Const Vital Signs: 02/14/23 17:31 02/14/23 18:55 Temperature 97.4 F L Temperature Source Temporal Pulse Rate 85 Respiratory Rate 16 18 Blood Pressure 159/80 H 147/69 H Blood Pressure Mean 106 95 Pulse Ox 96 Oxygen Delivery Method Room Air Room Air MDM MDM MDM Narrative Medical decision making narrative: In the differential diagnosis is acute pancreatitis versus pseudocyst of pancreas. I discussed patient with Dr. Alcocer who was present in the emergency department. He would like repeat laboratory work and a CT of the abdomen and pelvis. Was felt that she will most likely require admission given her second visit and continued nausea and vomiting. Reviewed her laboratory work from today. She was administered Dilaudid 0.5 mg for analgesia along with ondansetron, and a bolus of 1 L of normal saline for IV fluids. Her laboratory work from today, earlier this morning, and from this visit. Her laboratory work is slightly improved with a white count of 16.3 on this visit, hemoglobin normal at 12.2, platelet count elevated at 563 which I think may be an acute phase reactant. Sodium normal at 139, potassium normal at 3.5, chloride 107, glucose is elevated at 125 but she has a normal anion gap of 7. I have low concern for diabetic ketoacidosis. Her lipase is elevated at 159, slightly improved from previous. I reviewed her CT report which shows continuing pancreatitis with either infectious or inflammatory pseudocysts/fluid collection. She will be started on Zosyn. Natalie patient with Dr. Diez, with hospitalist medicine for admission and consultation to Dr. Alcocer for ongoing pancreatitis and pseudocysts. Patient is in stable condition. History & Record Review Discussion w/independent historian: Patient and Family Additional record(s) reviewed:: Prior ED visit and Prior labs Lab Data Attestation: I reviewed the patient's lab results. Labs: Laboratory Results - last 24 hr 02/14/23 02/14/23 18:00 18:03 WBC 16.3 H RBC 3.88 L Hgb 12.2 Hct 37.7 MCV 97.2 MCH 31.4 MCHC 32.4 RDW Std Deviation 46.2 H RDW Coeff of Omer 13.0 Plt Count 563 H MPV 8.6 Immature Gran % (Auto) 0.400 Neut % (Auto) 81.9 H Lymph % (Auto) 10.5 L [place] % (Auto) 6.4 Eos % (Auto) 0.4 Baso % (Auto) 0.4 Absolute Neuts (auto) 13.4 H Absolute Lymphs (auto) 1.71 Nucleated RBC % 0 Sodium 139 Potassium 3.5 Chloride 107 Carbon Dioxide 25.0 Anion Gap 7 BUN 11 Creatinine 0.92 Estim Creat Clear Calc 39.58 Est GFR (MDRD) Af Amer 77 Est GFR (MDRD) Non-Af 64 BUN/Creatinine Ratio 11.9 Glucose 125 H Calcium 8.9 Total Bilirubin 0.60 AST 17 ALT 18 Alkaline Phosphatase 101 Total Protein 7.0 Albumin 2.8 L Globulin 4.2 Albumin/Globulin Ratio 0.7 L Lipase 159 H Urine Color Straw Urine Clarity Clear Urine pH 8.0 Ur Specific [place] 1.015 Urine Protein Negative Urine Glucose (UA) Normal Urine Ketones Negative Urine Occult Blood 10 H Urine Nitrite Negative Urine Bilirubin Negative Urine Urobilinogen Normal Ur Leukocyte Esterase Negative Urine RBC 0 SEEN Urine WBC 0-5 SEEN Ur Squamous Epith Cells 0-5 SEEN Urine Bacteria 0 SEEN Urine Mucus 0 SEEN Radiography Diagnostic Testing: Clinical Impression(s) from Imaging Studies Abdomen/Pelvis CT 02/14/23 17:53 IMPRESSION: Findings consistent with persistent pancreatitis with numerous and somewhat confluent peripancreatic and fairly encapsulated fluid collections which could represent early peripancreatic pseudocyst formation. Cannot exclude infectious process. Bilateral simple renal cysts, otherwise remainder of abdominal viscera are unremarkable. No acute appendicitis or bowel obstruction. Diverticulosis with no signs of diverticulitis. Electronically Signed: Dominga Escobedo MD at 19:01 EDT , Management Discussion w/another healthcare provider: Hospitalist (Dr. Diez) and [employer] Manager (Dr. Alcocer, Gastroenterology) Discharge Plan Dx/Rx/DC Orders Clinical Impression: Pancreatitis, Nausea and vomiting, Pancreatic pseudocyst Disposition Disposition: [facility]
[2023-02-14] MEDS: Ondansetron 4 MG/2 ML Vial IV ×2 (18:08→22:42)
[2023-02-14] MEDS: 0.9% Normal Saline (1000mL) 1,000 ML 1000 ML IV (18:08)
[2023-02-14] MEDS: HYDROmorphone 1 MG/ML Syringe 0.5 MG IV (18:08)
[2023-02-14 18:09] LABS: Absolute Lymphocyte Count 1.71 X10^3/uL (0.83-4.51); Absolute Neutrophil Count 13.4 X10^3/uL (2.0-7.7); Basophil# 0.06 X10^3/uL; Basophil% 0.4 % (0-1); Eosinophil# 0.06 X10^3/uL; Eosinophils% 0.4 % (0-5); Hematocrit 37.7 % (37-47); Hemoglobin 12.2 g/dL (12.0-15.0); Lymphocyte # 1.71 X10^3/ul (0.83-4.51); Lymphocyte % 10.5 % (19-41); Mean Corp Hgb Conc 32.4 g/dL (32-36); Mean Corpuscular Hgb 31.4 pg (27.0-32.0); Mean Corpuscular Volume 97.2 fL (81-99); Mean Platelet Vol. 8.6 fl (6.2-12.0); Monocyte# 1.05 X10^3/uL; Monocyte% 6.4 % (0-10); NRBC Flagged by Analyzer 0 % (0-5); Neutrophil # 13.36 X10^3/uL (2.7-7.7); Neutrophil % 81.9 % (47-70); Platelet Count 563 K/mm3 (150-450); RBC Distribution Width SD 46.2 fl (35.1-43.9); Red Blood Count 3.88 M/mm3 (4.2-5.4); White Blood Count 16.3 K/mm3 (4.4-11.0)
[2023-02-14 18:26] LABS: ALB/GLOB Ratio 0.7 RATIO (0.9-2.4); AST(SGOT) 17 U/L (15-37); Alanine Aminotransfer ALT/SGPT 18 U/L (13-56); Albumin, Serum 2.8 g/dL (3.2-5.0); Alkaline Phosphatase 101 U/L (45-117); Anion Gap 7 (5-15); BUN 11 mg/dL (7-18); BUN/Creat Ratio 11.9 RATIO (10-20); Calcium,Total 8.9 mg/dL (8.5-10.1); Chloride 107 mmol/L (98-107); Creatinine, Serum 0.92 mg/dL (0.55-1.02); EST Glomerular Filtration Rate 64 mL/min (>60); Est Glom Filt Rate - Afr Amer 77 mL/min (>60); Estimated Creatinine Clearance 39.58 ml/min; Globulin 4.2 g/dL (2.2-4.2); Glucose 125 mg/dL (74-106); Lipase 159 U/L (13-75); Potassium 3.5 mmol/L (3.5-5.1); Sodium Level 139 mmol/L (136-145)
[2023-02-14 18:55] VITALS: BP 147/69; RESP 18
[2023-02-14 19:02] LABS: Bacteria 0 SEEN /hpf (None Seen); Mucous, Urine 0 SEEN /hpf (<or=2+); Red Blood Cells-Urine 0 SEEN /hpf (0-5)
[2023-02-14 19:10] LABS: Color, Urine Straw (Yellow); Glucose, Dipstick Normal (Normal); Ketone-Dipstick Negative (Negative); Leukocyte Esterase-Dipstick Negative /ul (Negative); Nitrite-Dipstick Negative (Negative); Occult Blood-Urine 10 /ul (Negative); Protein-Dipstick Negative (Negative); Specific Gravity, Urine 1.015 (1.002-1.030); Urine Bilirubin Dipstick Negative (Negative); Urine Clarity Clear (Clear); Urine Urobilinogen Normal (Normal)
[2023-02-14 19:19] LABS: Squamous Epithelial Cells - UA 0-5 SEEN /hpf (5-10); White Blood Cells 0-5 SEEN /hpf (0-5)
[2023-02-14] MEDS: HYDROmorphone 0.5 MG/0.5 ML SYRINGE IV (19:26)
--- NOTE | 2023-02-14 19:40 | HP.PCM.HOS_ITS ---
HPI - General General Date of Admission: 02/14/23 Date of Service: 02/14/23 Chief Complaint: Abdominal pain, n/v HPI Munir AVILA, is a 72-year-old female history of recent ERCP pancreatitis discharged 01/28/2023 in stable condition, anxiety, hypothyroidism, GERD who presented to [facility] 02/14/2023 with nausea and vomiting. Symptoms started Wednesday with nausea, vomiting, epigastric pain and was seen in the ED in the morning and lab work-up performed but ultimately she was discharged. She went home and vomited 3-4 times without any blood in emesis and called Dr. Alcocer's office and she was sent back to the emergency department for CT imaging and repeat lab work CT demonstrated continued pancreatitis and pseudocyst versus infectious process. She was given Dilaudid, Zofran, and Zosyn and a liter of normal saline and hospitalist consulted for admission. Patient evaluated at bedside and reported since she was discharged from the hospital she has not felt well and has had difficulty eating but over the past several days the nausea and vomiting worsened and this morning the nausea, vomiting, abdominal pain were bad enough she presented to the ED as above. She was feeling better and went home but had recurrence of the symptoms and Re-presented. Feeling slightly better after fluids, Zofran, pain medication but still has the epigastric pain that goes across her entire epigastrium into her back and also has been feeling some chills at home possibly but no fevers. Endorses she has been losing weight and has not been able to eat or drink much and that that also exacerbates the pain. Denies any problems with urination and no diarrhea. Reported she felt a little short of breath on her way in today but thinks it was from the pain and this is resolved. Has no other acute complaints [facility] Medical History Anisometropia Anxiety Arthralgia Arthritis Bloating COPD (chronic obstructive pulmonary disease) Elevated alkaline phosphatase level Elevated lipase Former smoker Former smoker Functional intestinal disorder, unspecified GERD (gastroesophageal reflux disease) Hiatal hernia High cholesterol History of echocardiogram History of edema History of pain when walking History of stress test HLD (hyperlipidemia) Hypothyroidism Leg cramps Osteoporosis Post-menopausal Vitamin D deficiency Wears hearing aid Wears partial dentures Home Medications levothyroxine 75 mcg tablet 75 mcg PO DAILY 11/15/14 [History Last Taken Unknown] pantoprazole 40 mg tablet,delayed release 40 mg PO QHS 11/15/14 [History Last Taken Unknown] rosuvastatin 10 mg tablet 10 mg PO QODAY 03/26/17 [History Last Taken Unknown] alprazolam 0.5 mg tablet 0.5 mg PO DAILY PRN anxiety 08/10/22 [History Last Taken Unknown] cholecalciferol (vitamin D3) 50 mcg (2,000 unit) capsule 50 mcg PO DAILY 08/10/22 [History Last Taken Unknown] coenzyme Q10 100 mg capsule (Co Q-10) 100 mg PO DAILY heart health 01/26/23 [History Last Taken Unknown] ondansetron HCl 8 mg tablet 8 mg PO Q8H PRN nausea and vomiting #20 tabs 01/28/23 [Rx Last Taken Unknown] oxycodone 5 mg tablet 5 mg PO Q8H PRN pain 3 days #18 tabs 01/28/23 [Rx Last Taken Unknown] docusate sodium 100 mg capsule (Colace) 100 mg PO QHS 02/14/23 [History Last Taken Unknown] Allergy/AdvReac Type Severity Reaction Status Date / Time Sulfa (Sulfonamide Allergy Intermediate Rash Verified 02/14/23 17:38 Antibiotics) ciprofloxacin [From Cipro] Allergy Swelling Verified 02/14/23 17:38 ciprofloxacin HCl Allergy Swelling Verified 02/14/23 17:38 [From Cipro] morphine AdvReac Inflammation Verified 02/14/23 17:38 of vein Family History Mother Diabetes Father Brain cancer Sister Cancer of kidney GERD (gastroesophageal reflux disease) Sister Atrial septal defect GERD (gastroesophageal reflux disease) Brother Atrial septal defect Surgical History H/O total hysterectomy History of cholecystectomy History of esophagogastroduodenoscopy (EGD) History of hip surgery Hx laparoscopic cholecystectomy Hx of colonoscopy Hx of discectomy Social History Smoking Status: Former smoker ROS ROS Narrative General: Feels she has possibly had some chills but no fever, has been losing weight HENT: Denies headache, denies stuffy nose, denies sore throat EYES: Denies changes in vision Resp: Denies cough, denies any further shortness of breath Cardiac: Denies chest pain GI: No diarrhea or constipation, epigastric pain radiates to back, nausea and vomiting : Denies changes in urination Extremity: Denies swelling MSK: Denies weakness Neuro: Denies any numbness/tingling Heme: Denies any bleeding or bruising Skin: Denies rashes Psychiatric: No complaints voiced Vital Signs Vital Signs Vital Signs: 02/14/23 17:31 02/14/23 18:55 Temperature 97.4 F L Temperature Source Temporal Pulse Rate 85 Respiratory Rate 16 18 Blood Pressure 159/80 H 147/69 H Blood Pressure Mean 106 95 Pulse Ox 96 Oxygen Delivery Method Room Air Room Air Weight Weight: 45.359 kg Body Mass Index (BMI) 19.5 Physical Exam Narrative General: Alert, oriented, no apparent distress HEENT: Atraumatic, normocephalic Eyes: Anicteric, normal conjunctiva, extraocular movements grossly intact Neck: Supple Respiratory: Clear to auscultation bilaterally, normal respiratory effort Cardiovascular: Regular rate and rhythm GI: Tender in the epigastrium some slight tenderness in lower quadrants as well but no rebound, guarding, rigidity Extremities: No edema Musculoskeletal: Moving all extremities Neuro: No overt focal neurological deficits Skin: No rashes appreciated Psych: Cooperative Results Lab / Micro Data 02/14/23 18:03 02/14/23 18:03 Labs: Laboratory Results - last 24 hr 02/14/23 18:00: Urine Color Straw, Urine Clarity Clear, Urine pH 8.0, Ur Specific [place] 1.015, Urine Protein Negative, Urine Glucose (UA) Normal, Urine Ketones Negative, Urine Occult Blood 10 H, Urine Nitrite Negative, Urine Biliru bin Negative, Urine Urobilinogen Normal, Ur Leukocyte Esterase Negative, Urine RBC 0 SEEN, Urine WBC 0-5 SEEN, Ur Squamous Epith Cells 0-5 SEEN, Urine Bacteria 0 SEEN, Urine Mucus 0 SEEN 02/14/23 18:03: WBC 16.3 H, RBC 3.88 L, Hgb 12.2, Hct 37.7, MCV 97.2, MCH 31.4, MCHC 32.4, RDW Std Deviation 46.2 H, RDW Coeff of Omer 13.0, Plt Count 563 H, MPV 8.6, Immature Gran % (Auto) 0.400, Neut % (Auto) 81.9 H, Lymph % (Auto) 10.5 L, [place] % (Auto) 6.4, Eos % (Auto) 0.4, Baso % (Auto) 0.4, Absolute Neuts (auto) 13.4 H, Absolute Lymphs (auto) 1.71, Nucleated RBC % 0, Sodium 139, Potassium 3.5, Chloride 107, Carbon Dioxide 25.0, Anion Gap 7, BUN 11, Creatinine 0.92, Estim Creat Clear Calc 39.58, Est GFR (MDRD) Af Amer 77, Est GFR (MDRD) Non-Af 64, BUN/Creatinine Ratio 11.9, Glucose 125 H, Calcium 8.9, Total Bilirubin 0.60, AST 17, ALT 18, Alkaline Phosphatase 101, Total Protein 7.0, Albumin 2.8 L, Globulin 4.2, Albumin/Globulin Ratio 0.7 L, Lipase 159 H Radiology Impression Abdomen/Pelvis CT 02/14/23 17:53 IMPRESSION: Findings consistent with persistent pancreatitis with numerous and somewhat confluent peripancreatic and fairly encapsulated fluid collections which could represent early peripancreatic pseudocyst formation. Cannot exclude infectious process. Bilateral simple renal cysts, otherwise remainder of abdominal viscera are unremarkable. No acute appendicitis or bowel obstruction. Diverticulosis with no signs of diverticulitis. Electronically Signed: Dominga Escobedo MD at 19:01 EDT Reading Location ID and State: [address] [place] [address] , Service support , Assessment & Plan Assessment/Plan (1) Pancreatitis: (2) Pancreatic pseudocyst: (3) Nausea and vomiting: PLAN: Plan #Intractable nausea vomiting secondary to pancreatitis with concern for pseudocyst formation -Has history of recent post ERCP pancreatitis and improved with symptomatic treatment was discharged home but symptoms have returned -Symptoms began to worsen on Wednesday and have been refractory to conservative ou tpatient management -In ED liver enzymes within normal limits, lipase 159, CT abdomen obtained and d emonstrated findings consistent with persistent pancreatitis with numerous and somewhat confluent peripancreatic and fairly encapsulated fluid collections which could represent early peripancreatic pseudocyst formation but cannot exclude infectious process -Patient given Zosyn in the ED, with her elevated white blood cell count, clinical picture, presentation feel it is reasonable to continue that at this time -Fluids, n.p.o. 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 and was found to have a single segmental biliary stricture in the lower third of the main bile duct and this was dilated and temporary stent placed, also had choledocholithiasis with complete removal after biliary sphincterectomy and balloon extraction #Anxiety -Supportive care -Has not filled Xanax since 08/05/2022 so this was not continued #GERD -Continue pantoprazole #Leukocytosis -Present since December, roughly unchanged however given CT results feel it is reasonable to continue Zosyn at this time #Hypothyroidism -Continue Synthroid #DVT ppx: Lovenox subcu Beth Diez MD Time spent in the patient's overall evaluation,decision-making process, review of diagnostic data, adjustment of management, discussion with other providers, nursing nursing and ancillary staff involved in patient's care documentation, 56 minutes Charges/Coding Visit Charges Inpatient E&M: 30151 Init Hosp L2
[2023-02-14] MEDS: Piperacil/Tazobactam 3.375 GM in 0.9% Normal Saline (50mL MB+) 50 ML IV (19:47)
[2023-02-14 19:48] VITALS: BP 120/64; PULSE 81; RESP 16; TEMP 37.1; O2SAT 99
[2023-02-14 21:04] VITALS: BP 109/59
[2023-02-14 21:30] VITALS: BMI 20.2
[2023-02-14 21:45] VITALS: BP 102/57; PULSE 51; RESP 16; TEMP 36.5; O2SAT 99
[2023-02-14] MEDS: 0.9% Normal Saline (1000mL) 1,000 ML 100 ML IV (22:32)
[2023-02-14] MEDS: 0.9% Saline Lock 10 ML Syringe IV (22:35)
[2023-02-14] MEDS: HYDROmorphone Inj 0.2 MG/ML SYRINGE 0.200000000000000011 MG IV (22:42)
[2023-02-14] MEDS: Pantoprazole Sodium 40 MG in 0.9% Normal Saline (100mL MB+) 100 ML 330 MG IV (23:20)
[2023-02-15 04:13] VITALS: BP 102/63; PULSE 64; RESP 16; TEMP 36.8; O2SAT 92
[2023-02-15 05:14] LABS: Absolute Lymphocyte Count 2.03 X10^3/uL (0.83-4.51); Basophil# 0.05 X10^3/uL; Basophil% 0.4 % (0-1); Eosinophil# 0.13 X10^3/uL; Eosinophils% 1.1 % (0-5); Hematocrit 32.4 % (37-47); Lymphocyte # 2.03 X10^3/ul (0.83-4.51); Lymphocyte % 17.9 % (19-41); Mean Corp Hgb Conc 30.9 g/dL (32-36); Mean Corpuscular Hgb 30.9 pg (27.0-32.0); Mean Platelet Vol. 8.9 fl (6.2-12.0); Monocyte# 1.04 X10^3/uL; Monocyte% 9.2 % (0-10); NRBC Flagged by Analyzer 0 % (0-5); Neutrophil % 70.9 % (47-70); Platelet Count 451 K/mm3 (150-450); RBC Distribution Width CV 13.2 % (11.6-14.6); RBC Distribution Width SD 47.9 fl (35.1-43.9); Red Blood Count 3.24 M/mm3 (4.2-5.4); White Blood Count 11.3 K/mm3 (4.4-11.0)
[2023-02-15 05:45] LABS: ALB/GLOB Ratio 0.7 RATIO (0.9-2.4); AST(SGOT) 13 U/L (15-37); Alanine Aminotransfer ALT/SGPT 12 U/L (13-56); Albumin, Serum 2.2 g/dL (3.2-5.0); Alkaline Phosphatase 71 U/L (45-117); Anion Gap 4 (5-15); BUN 9 mg/dL (7-18); BUN/Creat Ratio 11.9 RATIO (10-20); Calcium,Total 8.2 mg/dL (8.5-10.1); Chloride 114 mmol/L (98-107); Creatinine, Serum 0.76 mg/dL (0.55-1.02); EST Glomerular Filtration Rate 80 mL/min (>60); Est Glom Filt Rate - Afr Amer 96 mL/min (>60); Estimated Creatinine Clearance 36.53 ml/min; Globulin 3.3 g/dL (2.2-4.2); Glucose 99 mg/dL (74-106); Magnesium 1.8 mg/dL (1.6-2.6); Potassium 3.8 mmol/L (3.5-5.1); Protein, Total 5.5 g/dL (6.4-8.2); Sodium Level 143 mmol/L (136-145)
[2023-02-15] MEDS: 0.9% Normal Saline (250mL Bag) 250 ML 15 ML IV (05:45)
[2023-02-15] MEDS: Piperacil/Tazobactam 3.375 GM in 0.9% Normal Saline (50mL MB+) 50 ML IV ×3 (05:45→21:08)
[2023-02-15] MEDS: Enoxaparin 40 MG/0.4 ML Syringe SC (07:52)
[2023-02-15] MEDS: 0.9% Normal Saline (1000mL) 1,000 ML 100 ML IV (07:52)
[2023-02-15 08:00] VITALS: BP 113/68; PULSE 59; RESP 18; TEMP 36.6; O2SAT 96
[2023-02-15] MEDS: Lactated Ringers 1,000 ML 200 ML IV ×3 (09:11→20:12)
[2023-02-15] MEDS: Pantoprazole Sodium 40 MG in 0.9% Normal Saline (100mL MB+) 100 ML 330 MG IV ×2 (09:49→21:10)
[2023-02-15] MEDS: ALPRAZolam 0.25 MG Tablet 0.125 MG PO ×2 (09:49→13:52)
[2023-02-15] MEDS: 0.9% Saline Lock 10 ML Syringe IV ×3 (09:50→18:33)
[2023-02-15] MEDS: Hyoscyamine Sulfate 0.125 MG Tablet SL ×4 (09:52→21:07)
[2023-02-15] MEDS: Metoclopramide 10 MG/2 ML Vial 5 MG IV ×2 (11:35→18:33)
[2023-02-15 13:00] VITALS: O2SAT 93
[2023-02-15 13:49] LABS: Erythrocyte Sedimentation Rate 11 mm/hr (0-30)
[2023-02-15 14:00] VITALS: BP 123/74; PULSE 74; RESP 18; TEMP 36.6; O2SAT 97
--- NOTE | 2023-02-15 14:45 | EX.PCM.CON.G ---
HPI Consult Data Date of Consult: 02/15/23 HPI Narrative Reason for Consultation: Abdominal pain HPI Narrative: ALIX AVILA, is 72-year-old female history of recent ERCP pancreatitis discharged 01/28/2023 in stable condition, anxiety, hypothyroidism, GERD who presented to [facility] 02/14/2023 with nausea and vomiting. Her symptoms started Wednesday with nausea, vomiting, epigastric pain and was seen in the ED in the morning and lab work-up performed but ultimately she was discharged. She went home and vomited 3-4 times without any blood in emesis and called Dr. Alcocer's office and she was sent back to the emergency department for CT imaging and repeat lab work CT demonstrated continued pancreatitis and pseudocyst versus infectious process. She was given Dilaudid, Zofran, and Zosyn and a liter of normal saline and hospitalist consulted for admission. She reported that since she was discharged from the hospital she has not felt well. She denies any fevers, but she does endorse several days the nausea and vomiting. She was feeling better and went home but had recurrence of the symptoms. She is feeling slightly better after fluids, Zofran, pain medication but still has the epigastric pain that goes across her entire epigastrium into her back and also has been feeling some chills at home possibly but no fevers. Repeat CT scan of the abdomen pelvis does show pseudocyst versus infectious process. [facility] Medical History (Updated 02/14/23 @ 21:41 by Loni Moss) Anisometropia Anxiety Arthralgia Arthritis Bloating COPD (chronic obstructive pulmonary disease) Elevated alkaline phosphatase level Elevated lipase Former smoker Former smoker Functional intestinal disorder, unspecified GERD (gastroesophageal reflux disease) Hiatal hernia High cholesterol History of echocardiogram History of edema History of pain when walking History of stress test HLD (hyperlipidemia) Hypothyroidism Hypothyroidism Kidney stones Leg cramps Osteoporosis Pancreatitis Post-menopausal Vitamin D deficiency Wears hearing aid Wears partial dentures Home Medications levothyroxine 75 mcg tablet 75 mcg PO DAILY 11/15/14 [History Last Taken Unknown] pantoprazole 40 mg tablet,delayed release 40 mg PO QHS 11/15/14 [History Last Taken Unknown] rosuvastatin 10 mg tablet 10 mg PO QODAY 03/26/17 [History Last Taken Unknown] alprazolam 0.5 mg tablet 0.5 mg PO DAILY PRN anxiety 08/10/22 [History Last Taken Unknown] cholecalciferol (vitamin D3) 50 mcg (2,000 unit) capsule 50 mcg PO DAILY 08/10/22 [History Last Taken Unknown] coenzyme Q10 100 mg capsule (Co Q-10) 100 mg PO DAILY heart health 01/26/23 [History Last Taken Unknown] ondansetron HCl 8 mg tablet 8 mg PO Q8H PRN nausea and vomiting #20 tabs 01/28/23 [Rx Last Taken Unknown] oxycodone 5 mg tablet 5 mg PO Q8H PRN pain 3 days #18 tabs 01/28/23 [Rx Last Taken Unknown] docusate sodium 100 mg capsule (Colace) 100 mg PO QHS 02/14/23 [History Last Taken Unknown] Allergy/AdvReac Type Severity Reaction Status Date / Time Sulfa (Sulfonamide Allergy Intermediate Rash Verified 02/14/23 17:38 Antibiotics) ciprofloxacin [From Cipro] Allergy Swelling Verified 02/14/23 17:38 ciprofloxacin HCl Allergy Swelling Verified 02/14/23 17:38 [From Cipro] morphine AdvReac Inflammation Verified 02/14/23 17:38 of vein Family History Mother Diabetes Father Brain cancer Sister Cancer of kidney GERD (gastroesophageal reflux disease) Sister Atrial septal defect GERD (gastroesophageal reflux disease) Brother Atrial septal defect Surgical History H/O total hysterectomy History of cholecystectomy History of esophagogastroduodenoscopy (EGD) History of hip surgery Hx laparoscopic cholecystectomy Hx of colonoscopy Hx of discectomy Social History Smoking Status: Former smoker ROS ROS Narrative General: Feels she has possibly had some chills but no fever, has been losing weight HENT: Denies headache, denies stuffy nose, denies sore throat EYES: Denies changes in vision Resp: Denies cough, denies any further shortness of breath Cardiac: Denies chest pain GI: No diarrhea or constipation, epigastric pain radiates to back, nausea and vomiting : Denies changes in urination Extremity: Denies swelling MSK: Denies weakness Neuro: Denies any numbness/tingling Heme: Denies any bleeding or bruising Skin: Denies rashes Psychiatric: No complaints voiced Physical Exam Const alert, oriented x3, no apparent distress, average body habitus and healthy appearing General Appearance: cooperative, well kempt and well developed Orientation / Consciousness: awake, oriented to person, oriented to place and oriented to time HEENT normocephalic, head/scalp atraumatic and moist oral mucous membranes Eyes PERRL, EOMs intact bilaterally and conjunctivae normal Neck supple, no JVD, thyroid normal and no carotid bruits General: trachea midline Resp normal respiratory effort, no retractions, no use of accessory muscles and clear to auscultation bilaterally Auscultation: Negative for rales, rhonchi or wheezes Cardio regular rate, regular rhythm, S1 normal heart sound, S2 normal heart sound, no murmurs, no rub and no gallops GI normal to inspection, nondistended, normoactive bowel sounds, soft to palpation and non-distended GI Narrative: Mild diffuse abdominal tenderness is noted to deep palpation Extremity no clubbing, cyanosis or edema Skin no rashes or lesions noted General Skin Exam: no breakdown Neuro oriented x3, CN's II-XII intact bilaterally, no focal motor deficits and no sensory deficits noted Sensorium / Orientation: awake and alert Speech: speech normal Psych affect normal Medical Records Data Medical Nutrition Assessment Dietitian: Malnutrition Criteria Met Start: 02/15/23 10:24 Freq: Status: Active Protocol: Document 02/15/23 10:24 [facility] (Rec: 02/15/23 10:24 [facility] Desktop) Nutrition Malnutrition Evidence of Malnutrition Exists Yes Malnutrition (severe): Acute Illness/Injury Evidenced By Suboptimal Energy Intake ( Severe),Weight Loss (Severe) Clinical Problem Acute Disease or Injury Related Malnutrition Etiology related to pancreatitis and issues w/ nausea/vomiting Signs/Symptoms as evidenced by currently clear liquid diet; pt with 6.8 % unplanned wt loss and po intake <75% of est nutritional needs x < 1 week Status Active Problem Recommendation Dietitian Recommendations/Changes As medically able, rec OSCAR to Regular LOW FAT w/ 4 oz ensure plus high protein 4x/day w/ medpass. Continue to follow and monitor for changes in pt nutritional status. Lab / Micro Data 02/16/23 09:40 02/16/23 09:40 Labs: Laboratory Results - last 24 hr 02/16/23 09:40: WBC 9.7, RBC 3.40 L, Hgb 10.4 L, Hct 33.9 L, MCV 99.7 H, MCH 30.6, MCHC 30.7 L, RDW Std Deviation 47.2 H, RDW Coeff of [place]mer 13.0, Plt Count 417, MPV 8.9, Immature Gran % (Auto) 0.500, Neut % (Auto) 78.6 H, Lymph % (Auto) 13.5 L, [place] % (Auto) 4.8, Eos % (Auto) 2.0, Baso % (Auto) 0.6, Absolute Neuts (auto) 7.6, Absolute Lymphs (auto) 1.31, Nucleated RBC % 0, ESR 12, Sodium 140, Potassium 3.3 L, Chloride 108 H, Carbon Dioxide 27.0, Anion Gap 5, BUN 5 L, Creatinine 0.87, Estim Creat Clear Calc 41.98, Est GFR (MDRD) Af Amer 83, Est GFR (MDRD) Non-Af 68, BUN/Creatinine Ratio 5.8 L, Glucose 173 H, Lactic Acid 1.2, Calcium 8.6, Total Bilirubin 0.50, AST 14 L, ALT 11 L, Alkaline Phosphatase 80, Lactate Dehydrogenase 172, C-React Prot Ext Range 29.10 H, Total Protein 5.4 L, Albumin 2.2 L, Globulin 3.2, Albumin/Globulin Ratio 0.7 L, Lipase 113 H Assessment & Plan Assessment/Plan (1) Nausea & vomiting: QUALIFIERS: Vomiting type: unspecified Qualified Code(s): R11.2 - Nausea with vomiting, unspecified (2) Post-ERCP acute pancreatitis: PLAN: Plan Acute pancreatitis post ERCP. Likely a consequence of ERCP Advance diet continue IV pain medication hydrate with IVF CT abdomen showed new biliary stent and pneumobilia as well as inflammatory stranding desnities of hte first and second portion of the duodenum and left pericolic gutter Patient is doing a lot better Charges/Coding Visit Charges Inpatient E&M: 68425 Init Hosp L3
--- NOTE | 2023-02-15 17:20 | CASEMGMT ---
[facility]U GANDHI readmission note: Index admission: Pt admitted 01/26/23 w/dx of acute post ERCP pancreatitis. See UMU GANDHI, Elisa, note 01/27. Pt discharged home 01/28. Per Dr Alcocer/GI note 01/28/23: Sphincter of Oddi syndrome. She recently went to see gastroenterology on account of abdominal pain and gastroparesis was found to have choledocholithiasis and sphincter of Oddi syndrome. She had elevated AST and ALT and ALP and CT of the abdomen pelvis showed dilated pancreatic duct at dilated common bile duct. She had ERCP yesterday which showed single segmental biliary stricture found in the lower third of the main bile duct and was benign-appearing. Entire main bile duct was otherwise dilated. Choledocholithiasis was found with complete removal and biliary sphincterectomy and balloon extraction. She had a temporary bile duct stent placed . Current admission: Admitted w/recurrent pancreatitis on 02/14/23. GI consulted. UMU GANDHI to room. Introduced self and role. Pt sitting up on edge of bed. Pt states her had picked up the new Rx's from [facility] after last admission and has been taking her medications as instructed since discharge. She states she has not had any f/u appts since discharge and states, I've been too sick to go anywhere . She reports being independent @ home and can assist if needed. She denies having any concerns w/discharging back home w/ and denies having any discharge needs. Plan: Home w/spousal support and discharge plans in place. John ECHOLS RN, CM
--- NOTE | 2023-02-15 18:05 | PCM.PN.HOSP ---
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 Objective Data Objective Data Vital Signs: Vital Signs Temp Pulse Resp BP Pulse Ox O2 Del Method 97.9 F 74 18 123/74 H 97 Room Air 02/15/23 14:00 02/15/23 14:00 02/15/23 14:00 02/15/23 14:00 02/15/23 14:00 02/15/23 14:00 Oxygen Delivery Method Room Air Weight: 47 kg Body Mass Index (BMI) 20.2 Intake & Output: Intake and Output for Last 24 Hours 02/13/23 02/14/23 02/15/23 23:59 23:59 23:59 Intake Total 1050 / 1050 2337.08 / 2337.08 Output Total 250 / 250 Balance 1050 / 1050 2087.08 / 2087.08 Medical Nutrition Assessment Dietitian: Malnutrition Criteria Met Start: 02/15/23 10:24 Freq: Status: Active Protocol: Document 02/15/23 10:24 SLA (Rec: 02/15/23 10:24 SLA Desktop) Nutrition Malnutrition Evidence of Malnutrition Exists Yes Malnutrition (severe): Acute Illness/Injury Evidenced By Suboptimal Energy Intake ( Severe),Weight Loss (Severe) Clinical Problem Acute Disease or Injury Related Malnutrition Etiology related to pancreatitis and issues w/ nausea/vomiting Signs/Symptoms as evidenced by currently clear liquid diet; pt with 6.8 % unplanned wt loss and po intake <75% of est nutritional needs x < 1 week Status Active Problem Recommendation Dietitian Recommendations/Changes As medically able, rec OSCAR to Regular LOW FAT w/ 4 oz ensure plus high protein 4x/day w/ medpass. Continue to follow and monitor for changes in pt nutritional status. Lab / Micro Data 02/15/23 04:50 02/15/23 04:50 Labs: Laboratory Results - last 24 hr 02/14/23 18:00: Urine Color Straw, Urine Clarity Clear, Urine pH 8.0, Ur Specific [place] 1.015, Urine Protein Negative, Urine Glucose (UA) Normal, Urine Ketones Negative, Urine Occult Blood 10 H, Urine Nitrite Negative, Urine Bilirubin Negative, Urine Urobilinogen Normal, Ur Leukocyte Esterase Negative, Urine RBC 0 SEEN, Urine WBC 0-5 SEEN, Ur Squamous Epith Cells 0-5 SEEN, Urine Bacteria 0 SEEN, Urine Mucus 0 SEEN 02/14/23 18:03: WBC 16.3 H, RBC 3.88 L, Hgb 12.2, Hct 37.7, MCV 97.2, MCH 31.4, MCHC 32.4, RDW Std Deviation 46.2 H, RDW Coeff of Omer 13.0, Plt Count 563 H, MPV 8.6, Immature Gran % (Auto) 0.400, Neut % (Auto) 81.9 H, Lymph % (Auto) 10.5 L, [place] % (Auto) 6.4, Eos % (Auto) 0.4, Baso % (Auto) 0.4, Absolute Neuts (auto) 13.4 H, Absolute Lymphs (auto) 1.71, Nucleated RBC % 0, Sodium 139, Potassium 3.5, Chloride 107, Carbon Dioxide 25.0, Anion Gap 7, BUN 11, Creatinine 0.92, Estim Creat Clear Calc 39.58, Est GFR (MDRD) Af Amer 77, Est GFR (MDRD) Non-Af 64, BUN/Creatinine Ratio 11.9, Glucose 125 H, Calcium 8.9, Total Bilirubin 0.60, AST 17, ALT 18, Alkaline Phosphatase 101, Total Protein 7.0, Albumin 2.8 L, Globulin 4.2, Albumin/Globulin Ratio 0.7 L, Lipase 159 H 02/15/23 04:50: WBC 11.3 H, RBC 3.24 L, Hgb 10.0 L, Hct 32.4 L, MCV 100.0 H, MCH 30.9, MCHC 30.9 L, RDW Std Deviation 47.9 H, RDW Coeff of [place]mer 13.2, Plt Count 451 H, MPV 8.9, Immature Gran % (Auto) 0.500, Neut % (Auto) 70.9 H, Lymph % (Auto) 17.9 L, [place] % (Auto) 9.2, Eos % (Auto) 1.1, Baso % (Auto) 0.4, Absolute Neuts (auto) 8.0 H, Absolute Lymphs (auto) 2.03, Nucleated RBC % 0, ESR 11, Sodium 143, Potassium 3.8, Chloride 114 H, Carbon Dioxide 25.0, Anion Gap 4 L, BUN 9, Creatinine 0.76, Estim Creat Clear Calc 36.53, Est GFR (MDRD) Af Amer 96, Est GFR (MDRD) Non-Af 80, BUN/Creatinine Ratio 11.9, Glucose 99, Calcium 8.2 L, Magnesium 1.8, Total Bilirubin 0.40, AST 13 L, ALT 12 L, Alkaline Phosphatase 71, C-React Prot Ext Range 39.80 H, Total Protein 5.5 L, Albumin 2.2 L, Globulin 3.3, Albumin/Globulin Ratio 0.7 L Radiography Diagnostic Testing: Radiology Impression Abdomen/Pelvis CT 02/14/23 17:53 IMPRESSION: Findings consistent with persistent pancreatitis with numerous and somewhat confluent peripancreatic and fairly encapsulated fluid collections which could represent early peripancreatic pseudocyst formation. Cannot exclude infectious process. Bilateral simple renal cysts, otherwise remainder of abdominal viscera are unremarkable. No acute appendicitis or bowel obstruction. Diverticulosis with no signs of diverticulitis. Electronically Signed: Dominga Escobedo MD at 19:01 EDT , Physical Exam Const alert, oriented x3, no apparent distress, average body habitus and healthy appearing General Appearance: cooperative, well kempt and well developed Orientation / Consciousness: awake, oriented to person, oriented to place and oriented to time HEENT normocephalic, head/scalp atraumatic and moist oral mucous membranes Eyes PERRL, EOMs intact bilaterally and conjunctivae normal Neck supple, no JVD, thyroid normal and no carotid bruits General: trachea midline Resp normal respiratory effort, no retractions, no use of accessory muscles and clear to auscultation bilaterally Auscultation: Negative for rales, rhonchi or wheezes Cardio regular rate, regular rhythm, S1 normal heart sound, S2 normal heart sound, no murmurs, no rub and no gallops GI normal to inspection, nondistended, normoactive bowel sounds, soft to palpation and non-distended GI Narrative: Mild diffuse abdominal tenderness is noted to deep palpation Extremity no clubbing, cyanosis or edema Skin no rashes or lesions noted General Skin Exam: no breakdown Neuro oriented x3, CN's II-XII intact bilaterally, no focal motor deficits and no sensory deficits noted Sensorium / Orientation: awake and alert Speech: speech normal Psych affect normal Assessment & Plan Assessment/Plan (1) Pancreatitis: PLAN: Plan 1. Recurrent pancreatitis-continue conservative treatment including fluids and IV antibiotics, gastroenterology is participating in her care #2 hypothyroidism-patient will continue on her Synthroid #3 GERD-patient is on Protonix Total clinical time spent by myself addressing the patient's medical issues, reviewing all of her data, and collaborating with patient's care team: 35 minutes Charges/Coding Visit Charges Inpatient E&M: 10929 Subs Hosp L2
[2023-02-15] MEDS: Acetaminophen 325 MG Tablet 650 MG PO (18:32)
[2023-02-15 21:03] VITALS: BP 110/59; PULSE 63; RESP 18; TEMP 36.6; O2SAT 96
[2023-02-15] MEDS: MELATONIN 3 MG TABLET PO (21:05)
[2023-02-16] MEDS: Lactated Ringers 1,000 ML 200 ML IV ×4 (00:17→11:56)
[2023-02-16] MEDS: 0.9% Saline Lock 10 ML Syringe IV ×4 (00:18→23:29)
[2023-02-16] MEDS: Metoclopramide 10 MG/2 ML Vial 5 MG IV ×5 (00:18→23:29)
[2023-02-16 02:50] VITALS: BP 105/64; PULSE 63; RESP 18; TEMP 37; O2SAT 97
[2023-02-16] MEDS: Hyoscyamine Sulfate 0.125 MG Tablet SL ×6 (02:56→21:43)
[2023-02-16] MEDS: Piperacil/Tazobactam 3.375 GM in 0.9% Normal Saline (50mL MB+) 50 ML IV ×3 (06:14→21:39)
[2023-02-16] MEDS: Levothyroxine 75 MCG Tablet PO (06:19)
[2023-02-16 07:28] VITALS: O2SAT 99
[2023-02-16 08:39] VITALS: BP 117/66; PULSE 66; RESP 18; TEMP 36.8; O2SAT 98
[2023-02-16] MEDS: Ensure Clear 120 ML Liquid PO ×2 (08:49→11:33)
[2023-02-16 10:00] LABS: Erythrocyte Sedimentation Rate 12 mm/hr (0-30)
[2023-02-16 10:02] LABS: Absolute Lymphocyte Count 1.31 X10^3/uL (0.83-4.51); Absolute Neutrophil Count 7.6 X10^3/uL (2.0-7.7); Basophil# 0.06 X10^3/uL; Basophil% 0.6 % (0-1); Eosinophil# 0.19 X10^3/uL; Hematocrit 33.9 % (37-47); Hemoglobin 10.4 g/dL (12.0-15.0); Lymphocyte # 1.31 X10^3/ul (0.83-4.51); Lymphocyte % 13.5 % (19-41); Mean Corp Hgb Conc 30.7 g/dL (32-36); Mean Corpuscular Hgb 30.6 pg (27.0-32.0); Mean Corpuscular Volume 99.7 fL (81-99); Mean Platelet Vol. 8.9 fl (6.2-12.0); Monocyte# 0.47 X10^3/uL; Monocyte% 4.8 % (0-10); NRBC Flagged by Analyzer 0 % (0-5); Neutrophil # 7.62 X10^3/uL (2.7-7.7); Neutrophil % 78.6 % (47-70); Platelet Count 417 K/mm3 (150-450); RBC Distribution Width SD 47.2 fl (35.1-43.9); White Blood Count 9.7 K/mm3 (4.4-11.0)
[2023-02-16 10:20] LABS: Lactic Acid 1.2 mmol/L (0.4-1.9)
[2023-02-16 10:22] LABS: ALB/GLOB Ratio 0.7 RATIO (0.9-2.4); AST(SGOT) 14 U/L (15-37); Alanine Aminotransfer ALT/SGPT 11 U/L (13-56); Albumin, Serum 2.2 g/dL (3.2-5.0); Alkaline Phosphatase 80 U/L (45-117); Anion Gap 5 (5-15); BUN 5 mg/dL (7-18); BUN/Creat Ratio 5.8 RATIO (10-20); Calcium,Total 8.6 mg/dL (8.5-10.1); Chloride 108 mmol/L (98-107); Creatinine, Serum 0.87 mg/dL (0.55-1.02); EST Glomerular Filtration Rate 68 mL/min (>60); Est Glom Filt Rate - Afr Amer 83 mL/min (>60); Estimated Creatinine Clearance 41.98 ml/min; Globulin 3.2 g/dL (2.2-4.2); Glucose 173 mg/dL (74-106); LDH 172 U/L (84-246); Lipase 113 U/L (13-75); Potassium 3.3 mmol/L (3.5-5.1); Protein, Total 5.4 g/dL (6.4-8.2); Sodium Level 140 mmol/L (136-145)
[2023-02-16] MEDS: Pantoprazole Sodium 40 MG in 0.9% Normal Saline (100mL MB+) 100 ML 330 MG IV ×2 (10:26→21:41)
[2023-02-16] MEDS: Enoxaparin 40 MG/0.4 ML Syringe SC (10:26)
[2023-02-16 14:19] VITALS: BP 112/58; PULSE 67; RESP 18; TEMP 36.6; O2SAT 98
[2023-02-16] MEDS: ALPRAZolam 0.25 MG Tablet 0.125 MG PO ×2 (14:22→23:28)
--- NOTE | 2023-02-16 14:51 | PN.GI_ITS ---
Subjective Subjective Patient is feeling a little bit better today. She has been tolerating a liquid diet. She has not had a bowel movement yet. Objective Data Objective Data Vital Signs: Vital Signs Temp Pulse Resp BP Pulse Ox O2 Del Method 97.8 F 67 18 112/58 L 98 Room Air 02/16/23 14:02/16/23 14:02/16/23 14:02/16/23 14:02/16/23 14:02/16/23 14:19 Oxygen Delivery Method Room Air Weight: 103 lb 9.876 oz Body Mass Index (BMI) 20.2 Intake & Output: Intake and Output for Last 24 Hours 02/14/23 02/15/23 02/16/23 23:59 23:59 23:59 Intake Total 1050 / 1050 4040.41 / 4040.41 3436.67 / 3436.67 Output Total 250 / 250 Balance 1050 / 1050 3790.41 / 3790.41 3436.67 / 3436.67 Medical Nutrition Assessment Dietitian: Malnutrition Criteria Met Start: 02/15/23 10:24 Freq: Status: Active Protocol: Document 02/15/23 10:24 SLA (Rec: 02/15/23 10:24 SLA Desktop) Nutrition Malnutrition Evidence of Malnutrition Exists Yes Malnutrition (severe): Acute Illness/Injury Evidenced By Suboptimal Energy Intake ( Severe),Weight Loss (Severe) Clinical Problem Acute Disease or Injury Related Malnutrition Etiology related to pancreatitis and issues w/ nausea/vomiting Signs/Symptoms as evidenced by currently clear liquid diet; pt with 6.8 % unplanned wt loss and po intake <75% of est nutritional needs x < 1 week Status Active Problem Recommendation Dietitian Recommendations/Changes As medically able, rec OSCAR to Regular LOW FAT w/ 4 oz ensure plus high protein 4x/day w/ medpass. Continue to follow and monitor for changes in pt nutritional status. Lab / Micro Data 02/16/23 09:40 02/16/23 09:40 Labs: Laboratory Results - last 24 hr 02/16/23 09:40: WBC 9.7, RBC 3.40 L, Hgb 10.4 L, Hct 33.9 L, MCV 99.7 H, MCH 30.6, MCHC 30.7 L, RDW Std Deviation 47.2 H, RDW Coeff of Omer 13.0, Plt Count 417, MPV 8.9, Immature Gran % (Auto) 0.500, Neut % (Auto) 78.6 H, Lymph % (Auto) 13.5 L, [place] % (Auto) 4.8, Eos % (Auto) 2.0, Baso % (Auto) 0.6, Absolute Neuts (auto) 7.6, Absolute Lymphs (auto) 1.31, Nucleated RBC % 0, ESR 12, Sodium 140, Potassium 3.3 L, Chloride 108 H, Carbon Dioxide 27.0, Anion Gap 5, BUN 5 L, Creatinine 0.87, Estim Creat Clear Calc 41.98, Est GFR (MDRD) Af Amer 83, Est GFR (MDRD) Non-Af 68, BUN/Creatinine Ratio 5.8 L, Glucose 173 H, Lactic Acid 1.2, Calcium 8.6, Total Bilirubin 0.50, AST 14 L, ALT 11 L, Alkaline Phosphatase 80, Lactate Dehydrogenase 172, C-React Prot Ext Range 29.10 H, Total Protein 5.4 L, Albumin 2.2 L, Globulin 3.2, Albumin/Globulin Ratio 0.7 L, Lipase 113 H Physical Exam Const alert, oriented x3, no apparent distress, average body habitus and healthy appearing General Appearance: cooperative, well kempt and well developed Orientation / Consciousness: awake, oriented to person, oriented to place and oriented to time HEENT normocephalic, head/scalp atraumatic and moist oral mucous membranes Eyes PERRL, EOMs intact bilaterally and conjunctivae normal Neck supple, no JVD, thyroid normal and no carotid bruits General: trachea midline Resp normal respiratory effort, no retractions, no use of accessory muscles and clear to auscultation bilaterally Auscultation: Negative for rales, rhonchi or wheezes Cardio regular rate, regular rhythm, S1 normal heart sound, S2 normal heart sound, no murmurs, no rub and no gallops GI normal to inspection, nondistended, normoactive bowel sounds, soft to palpation and non-distended GI Narrative: Mild diffuse abdominal tenderness is noted to deep palpation Extremity no clubbing, cyanosis or edema Skin no rashes or lesions noted General Skin Exam: no breakdown Neuro oriented x3, CN's II-XII intact bilaterally, no focal motor deficits and no sensory deficits noted Sensorium / Orientation: awake and alert Speech: speech normal Psych affect normal Assessment & Plan Assessment/Plan (1) Nausea & vomiting: QUALIFIERS: Vomiting type: unspecified Qualified Code(s): R11.2 - Nausea with vomiting, unspecified (2) Post-ERCP acute pancreatitis: PLAN: Plan Acute pancreatitis * post ERCP. Likely a consequence of ERCP * Advance diet as tolerated * continue IV pain medication * hydrate with IVF * CT abdomen showed new biliary stent and pneumobilia as well as inflammatory stranding densities of the first and second portion of the duodenum and left pericolic gutter * Patient is doing a lot better * Continue IV antibiotics * She is having a good response to IV fluids as her hematocrit has decreased 10% over the first 48 hours which has a very good prognosis. Her CRP is still elevated I will like to see that continue to drastically be reduced prior to her getting discharged from the hospital that is one of the best indicators of ongoing healing. Charges/Coding Visit Charges Inpatient E&M: 35580 Subs Hosp L3
--- NOTE | 2023-02-16 17:03 | PN.HOSP_ITS ---
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 I decreased her IV fluids somewhat today. Objective Data Objective Data Vital Signs: Vital Signs Temp Pulse Resp BP Pulse Ox O2 Del Method 97.8 F 67 18 112/58 L 98 Room Air 02/16/23 14:02/16/23 14:02/16/23 14:02/16/23 14:02/16/23 14:02/16/23 14:19 Oxygen Delivery Method Room Air Weight: 47 kg Body Mass Index (BMI) 20.2 Intake & Output: Intake and Output for Last 24 Hours 02/14/23 02/15/23 02/16/23 23:59 23:59 23:59 Intake Total 1050 / 1050 4040.41 / 4040.41 4046.67 / 4046.67 Output Total 250 / 250 Balance 1050 / 1050 3790.41 / 3790.41 4046.67 / 4046.67 Medical Nutrition Assessment Dietitian: Malnutrition Criteria Met Start: 02/15/23 10:24 Freq: Status: Active Protocol: Document 02/15/23 10:24 SLA (Rec: 02/15/23 10:24 SLA Desktop) Nutrition Malnutrition Evidence of Malnutrition Exists Yes Malnutrition (severe): Acute Illness/Injury Evidenced By Suboptimal Energy Intake ( Severe),Weight Loss (Severe) Clinical Problem Acute Disease or Injury Related Malnutrition Etiology related to pancreatitis and issues w/ nausea/vomiting Signs/Symptoms as evidenced by currently clear liquid diet; pt with 6.8 % unplanned wt loss and po intake <75% of est nutritional needs x < 1 week Status Active Problem Recommendation Dietitian Recommendations/Changes As medically able, rec OSCAR to Regular LOW FAT w/ 4 oz ensure plus high protein 4x/day w/ medpass. Continue to follow and monitor for changes in pt nutritional status. Lab / Micro Data 02/16/23 09:40 02/16/23 09:40 Labs: Laboratory Results - last 24 hr 02/16/23 09:40: WBC 9.7, RBC 3.40 L, Hgb 10.4 L, Hct 33.9 L, MCV 99.7 H, MCH 30.6, MCHC 30.7 L, RDW Std Deviation 47.2 H, RDW Coeff of Omer 13.0, Plt Count 417, MPV 8.9, Immature Gran % (Auto) 0.500, Neut % (Auto) 78.6 H, Lymph % (Auto) 13.5 L, [place] % (Auto) 4.8, Eos % (Auto) 2.0, Baso % (Auto) 0.6, Absolute Neuts (auto) 7.6, Absolute Lymphs (auto) 1.31, Nucleated RBC % 0, ESR 12, Sodium 140, Potassium 3.3 L, Chloride 108 H, Carbon Dioxide 27.0, Anion Gap 5, BUN 5 L, Creatinine 0.87, Estim Creat Clear Calc 41.98, Est GFR (MDRD) Af Amer 83, Est GFR (MDRD) Non-Af 68, BUN/Creatinine Ratio 5.8 L, Glucose 173 H, Lactic Acid 1.2, Calcium 8.6, Total Bilirubin 0.50, AST 14 L, ALT 11 L, Alkaline Phosphatase 80, Lactate Dehydrogenase 172, C-React Prot Ext Range 29.10 H, Total Protein 5.4 L, Albumin 2.2 L, Globulin 3.2, Albumin/Globulin Ratio 0.7 L, Lipase 113 H Physical Exam Const alert, oriented x3, no apparent distress and healthy appearing General Appearance: cooperative, well kempt and well developed Orientation / Consciousness: awake, oriented to person, oriented to place and oriented to time HEENT normocephalic and moist oral mucous membranes Eyes PERRL, EOMs intact bilaterally and conjunctivae normal Neck supple, no JVD, thyroid normal and no carotid bruits General: trachea midline Resp normal respiratory effort and clear to auscultation bilaterally Auscultation: Negative for rales, rhonchi or wheezes Cardio regular rate, regular rhythm, no murmurs, no rub and no gallops GI normal to inspection, nondistended, normoactive bowel sounds, soft to palpation, non-tender and non-distended Extremity no clubbing, cyanosis or edema Skin no rashes or lesions noted General Skin Exam: no breakdown Neuro oriented x3, CN's II-XII intact bilaterally, no focal motor deficits and no sensory deficits noted Sensorium / Orientation: awake and alert Speech: speech normal Psych affect normal Assessment & Plan Assessment/Plan (1) Pancreatitis: PLAN: Plan 1. Recurrent pancreatitis-continue conservative treatment including fluids and IV antibiotics, gastroenterology is participating in her care, patient was changed to a regular diet today, I decrease her IV fluid rate. #2 hypothyroidism-patient will continue on her Synthroid #3 GERD-patient is on Protonix Total clinical time spent by myself addressing the patient's medical issues, reviewing all of her data, and collaborating with patient's care team: 25 minutes Charges/Coding Visit Charges Inpatient E&M: 48148 [facility] Hosp L1
[2023-02-16] MEDS: Lactated Ringers 1,000 ML 150 ML IV ×2 (17:50→23:25)
[2023-02-16 21:36] VITALS: BP 122/67; PULSE 78; RESP 18; TEMP 36.8; O2SAT 95
[2023-02-16] MEDS: MELATONIN 3 MG TABLET PO (21:43)
[2023-02-17 03:50] VITALS: BP 111/53; PULSE 69; RESP 18; TEMP 37; O2SAT 95
[2023-02-17] MEDS: Piperacil/Tazobactam 3.375 GM in 0.9% Normal Saline (50mL MB+) 50 ML IV (05:18)
[2023-02-17] MEDS: Hyoscyamine Sulfate 0.125 MG Tablet SL ×2 (05:19→09:48)
[2023-02-17] MEDS: Lactated Ringers 1,000 ML 150 ML IV ×2 (05:19→12:00)
[2023-02-17] MEDS: Levothyroxine 75 MCG Tablet PO (05:19)
[2023-02-17] MEDS: Metoclopramide 10 MG/2 ML Vial 5 MG IV ×2 (05:20→12:00)
[2023-02-17] MEDS: ALPRAZolam 0.25 MG Tablet 0.125 MG PO (05:23)
[2023-02-17] MEDS: Ensure Clear 120 ML Liquid PO ×2 (07:55→12:00)
[2023-02-17 08:20] VITALS: BP 121/72; PULSE 65; RESP 18; TEMP 36.7; O2SAT 95
[2023-02-17] MEDS: Pantoprazole Sodium 40 MG in 0.9% Normal Saline (100mL MB+) 100 ML 330 MG IV (09:47)
[2023-02-17] MEDS: Enoxaparin 40 MG/0.4 ML Syringe SC (09:48)
[2023-02-17 10:45] LABS: Basophil# 0.04 X10^3/uL; Basophil% 0.5 % (0-1); Eosinophil# 0.34 X10^3/uL; Hematocrit 30.3 % (37-47); Hemoglobin 9.6 g/dL (12.0-15.0); Lymphocyte % 17.5 % (19-41); Mean Corp Hgb Conc 31.7 g/dL (32-36); Mean Corpuscular Hgb 31.2 pg (27.0-32.0); Mean Corpuscular Volume 98.4 fL (81-99); Mean Platelet Vol. 8.8 fl (6.2-12.0); Monocyte# 0.73 X10^3/uL; Monocyte% 8.5 % (0-10); NRBC Flagged by Analyzer 0 % (0-5); Neutrophil # 5.95 X10^3/uL (2.7-7.7); Neutrophil % 69.2 % (47-70); Platelet Count 351 K/mm3 (150-450); RBC Distribution Width CV 12.9 % (11.6-14.6); RBC Distribution Width SD 46.4 fl (35.1-43.9); Red Blood Count 3.08 M/mm3 (4.2-5.4); White Blood Count 8.6 K/mm3 (4.4-11.0)
[2023-02-17 11:17] LABS: ALB/GLOB Ratio 0.6 RATIO (0.9-2.4); AST(SGOT) 10 U/L (15-37); Alanine Aminotransfer ALT/SGPT 11 U/L (13-56); Alkaline Phosphatase 66 U/L (45-117); Amylase 87 U/L (25-115); Anion Gap 5 (5-15); BUN 4 mg/dL (7-18); BUN/Creat Ratio 5.4 RATIO (10-20); Calcium,Total 8.3 mg/dL (8.5-10.1); Chloride 108 mmol/L (98-107); Creatinine, Serum 0.74 mg/dL (0.55-1.02); EST Glomerular Filtration Rate 81 mL/min (>60); Est Glom Filt Rate - Afr Amer 99 mL/min (>60); Estimated Creatinine Clearance 36.53 ml/min; Globulin 3.4 g/dL (2.2-4.2); Glucose 163 mg/dL (74-106); Lipase 128 U/L (13-75); Protein, Total 5.4 g/dL (6.4-8.2); Sodium Level 141 mmol/L (136-145)
[2023-02-17] MEDS: Potassium Chloride Oral Tablet 20 MEQ 40 MEQ PO (12:00)
[2023-02-17] MEDS: 0.9% Saline Lock 10 ML Syringe IV (12:01)
--- NOTE | 2023-02-17 13:40 | PCM.DC ---
Discharge Instructions Diet Discharge Diet: No restrictions Activity Discharge Activity: Return to Normal Activity Weight Bearing Status: Full weight bearing Follow Up Care Test Results: Test results from this visit will be discussed in further detail at your follow-up appointment, if applicable. Discharge Plan Admission Admit Date/Time: 02/14/23 19:40 Primary Reason for Your Visit: Pancreatitis Attending Provider: Corky Reyes Primary Care Provider: Adriane Sarah Consulting Providers: Beth Diez Instructions Additional Instructions / Restrictions: You will need to have a CBC, amylase, lipase, and CRP drawn at the lab this Wednesday Discharge Orders/Prescriptions Prescriptions: Continued cholecalciferol (vitamin D3) 50 mcg (2,000 unit) capsule 50 mcg PO DAILY alprazolam 0.5 mg tablet 0.5 mg PO DAILY PRN (Reason: anxiety) levothyroxine 75 MCG tablet 75 mcg PO DAILY Patient Comments: THYROID pantoprazole 40 MG tablet 40 mg PO QHS Patient Comments: REFLUX rosuvastatin 10 MG tablet 10 mg PO QODAY Patient Comments: CHOLESTEROL docusate sodium [Colace] 100 mg capsule 100 mg PO QHS coenzyme Q10 [Co Q-10] 100 mg capsule 100 mg PO DAILY ondansetron HCl 8 mg tablet 8 mg PO Q8H PRN (Reason: nausea and vomiting) Qty: 20 0RF Rx Instructions: 1st dose 1-2 hr before radiation oxycodone 5 mg tablet 5 mg PO Q8H PRN (Reason: pain) 3 Days Qty: 18 0RF Referrals / Follow Up: Moses Alcocer DO [Med Staff - Active Staff] - See Referral Note (In 2 weeks, call for an appointment) Adriane Sarah, CLINICAL ACCOUNT MANAGER-C [Primary Care Provider] - Within 1 Month Disposition Disposition (needs filled in before D/C Order can be placed): Home, Self Care
--- NOTE | 2023-02-17 13:48 | PCM.DC.SUM ---
Providers Date of Admission: 02/14/23 Date of Discharge: 02/17/23 Primary Care Physician: Adriane Sarah, JASPAL Consultations 02/14/23 21:28 Consult: Gastroenterology Routine Consulting Provider: Deana Gastroenterology Reason for Consult: recurrent pancreatitis, recent ercp and stent placement EMERGENT Consult: No MD Notified: Yes Date Notified: 02/14/23 Time Notified: 19:42 Method of Notification: ED Physician Initiated Reason For Visit: RECURRENT PANCREATITIS Diagnosis Discharge Diagnosis (1) Pancreatitis: Status: Acute Code(s): K85.90 - Acute pancreatitis without necrosis or infection, unspecified Plan 1. Recurrent pancreatitis-continue conservative treatment including fluids and IV antibiotics, gastroenterology is participating in her care, patient was changed to a regular diet today, I decrease her IV fluid rate. #2 hypothyroidism-patient will continue on her Synthroid #3 GERD-patient is on Protonix Total clinical time spent by myself addressing the patient's medical issues, reviewing all of her data, and collaborating with patient's care team: 25 minutes Medications at Discharge Home Medications levothyroxine 75 mcg tablet 75 mcg PO DAILY 11/15/14 pantoprazole 40 mg tablet,delayed release 40 mg PO QHS 11/15/14 rosuvastatin 10 mg tablet 10 mg PO QODAY 03/26/17 alprazolam 0.5 mg tablet 0.5 mg PO DAILY PRN anxiety 08/10/22 cholecalciferol (vitamin D3) 50 mcg (2,000 unit) capsule 50 mcg PO DAILY 08/10/22 coenzyme Q10 100 mg capsule (Co Q-10) 100 mg PO DAILY [facility] 01/26/23 ondansetron HCl 8 mg tablet 8 mg PO Q8H PRN nausea and vomiting #20 tabs 01/28/23 oxycodone 5 mg tablet 5 mg PO Q8H PRN pain 3 days #18 tabs 01/28/23 docusate sodium 100 mg capsule (Colace) 100 mg PO QHS 02/14/23 Hospital Course Operations None Procedures None Summary of Care Provided Minutes Spent on Discharge: 31 Hospital Course: This 72-year-old white female was seen in the emergency room at [facility] with a 2-day history of left-sided chest pain with abdominal pain and nausea and vomiting. Patient had been seen approximately 2 weeks prior and had been admitted to the hospital for pancreatitis after an ERCP. 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 Labs were performed which showed an elevated white blood cell count at 16.3, patient's lipase was 159, CT of the abdomen pelvis showed findings consistent with persistent pancreatitis and findings that could represent early. Pancreatic pseudocyst formation, and infectious process cannot be excluded. Patient was admitted to [place] [id number], placed on IV fluids and IV antibiotics and seen in consultation by gastroenterology, her symptoms improved over the next several days. On 02/17/2023, patient was seen and examined: On examination she appeared in good health and spirits, she does not appear to be in any distress. Vital signs as documented. Skin warm and dry and without overt rashes. Neck without JVD, thyroid appears normal, trachea is midline, neck is supple. Lungs clear, normal air movement was noted. Heart exam notable for regular rhythm, normal sounds and absence of murmurs, rubs or gallops. Abdomen unremarkable and without evidence of organomegaly, masses, or abdominal aortic enlargement, bowel sounds are present in all 4 quadrants, no abdominal tenderness was noted. Extremities nonedematous, no cyanosis was noted, no clubbing was noted. Neuro: Cranial nerves II through XII are grossly intact, no focal motor deficits were noted, sensation to light touch and pinprick is intact, motor exam 5/5 throughout. Psych: Patient is alert and oriented x3, she does not appear anxious or depressed, she does not appear agitated. Patient was discharged home in stable condition on 02/17/2023. Medical Records Data Medical Nutrition Assessment Dietitian: Malnutrition Criteria Met Start: 02/15/23 10:24 Freq: Status: Active Protocol: Document 02/15/23 10:24 [facility] (Rec: 02/15/23 10:24 [facility] Desktop) Nutrition Malnutrition Evidence of Malnutrition Exists Yes Malnutrition (severe): Acute Illness/Injury Evidenced By Suboptimal Energy Intake ( Severe),Weight Loss (Severe) Clinical Problem Acute Disease or Injury Related Malnutrition Etiology related to pancreatitis and issues w/ nausea/vomiting Signs/Symptoms as evidenced by currently clear liquid diet; pt with 6.8 % unplanned wt loss and po intake <75% of est nutritional needs x < 1 week Status Active Problem Recommendation Dietitian Recommendations/Changes As medically able, rec OSCAR to Regular LOW FAT w/ 4 oz ensure plus high protein 4x/day w/ medpass. Continue to follow and monitor for changes in pt nutritional status. Weight / BMI Weight Weight: 47 kg Body Mass Index (BMI) 20.2 ABG / Lab / Microbiology Data 02/17/23 10:39 02/17/23 10:39 Laboratory: Laboratory Results - last 24 hr 02/17/23 10:39: WBC 8.6, RBC 3.08 L, Hgb 9.6 L, Hct 30.3 L, MCV 98.4, MCH 31.2, MCHC 31.7 L, RDW Std Deviation 46.4 H, RDW Coeff of Omer 12.9, Plt Count 351, MPV 8.8, Immature Gran % (Auto) 0.300, Neut % (Auto) 69.2, Lymph % (Auto) 17.[address] L, [place] % (Auto) 8.5, Eos % (Auto) 4.0, Baso % (Auto) 0.5, Absolute Neuts (auto) 6.0, Absolute Lymphs (auto) 1.50, Nucleated RBC % 0, Sodium 141, Potassium 3.0 L, Chloride 108 H, Carbon Dioxide 28.0, Anion Gap 5, BUN 4 L, Creatinine 0.74, Estim Creat Clear Calc 36.53, Est GFR (MDRD) Af Amer 99, Est GFR (MDRD) Non-Af 81, BUN/Creatinine Ratio 5.4 L, Glucose 163 H, Calcium 8.3 L, Total Bilirubin 0.30, AST 10 L, ALT 11 L, Alkaline Phosphatase 66, C-React Prot Ext Range 19.10 H, Total Protein 5.4 L, Albumin 2.0 L, Globulin 3.4, Albumin/Globulin Ratio 0.6 L, Amylase 87, Lipase 128 H D/C Instructions Discharge Diet: No restrictions Weight Bearing Status: Full weight bearing Meaningful Use Info Meaningful Use Diagnoses (Choose all that apply): None applicable Discharge Plan Admission Admit Date/Time: 02/14/23 19:40 Primary Reason for Your Visit: Pancreatitis Attending Provider: Corky Reyes Primary Care Provider: Adriane Sarah Consulting Providers: Beth Diez Instructions Additional Instructions / Restrictions: You will need to have a CBC, amylase, lipase, and CRP drawn at the lab this Wednesday Discharge Orders/Prescriptions Prescriptions: Continued cholecalciferol (vitamin D3) 50 mcg (2,000 unit) capsule 50 mcg PO DAILY alprazolam 0.5 mg tablet 0.5 mg PO DAILY PRN (Reason: anxiety) levothyroxine 75 MCG tablet 75 mcg PO DAILY Patient Comments: THYROID pantoprazole 40 MG tablet 40 mg PO QHS Patient Comments: REFLUX rosuvastatin 10 MG tablet 10 mg PO QODAY Patient Comments: CHOLESTEROL docusate sodium [Colace] 100 mg capsule 100 mg PO QHS coenzyme Q10 [Co Q-10] 100 mg capsule 100 mg PO DAILY ondansetron HCl 8 mg tablet 8 mg PO Q8H PRN (Reason: nausea and vomiting) Qty: 20 0RF Rx Instructions: 1st dose 1-2 hr before radiation oxycodone 5 mg tablet 5 mg PO Q8H PRN (Reason: pain) 3 Days Qty: 18 0RF Referrals / Follow Up: Moses Alcocer DO [Med Staff - Active Staff] - See Referral Note (In 2 weeks, call for an appointment) Adriane Sarah CABLE REPAIRER-C [Primary Care Provider] - Within 1 Month Disposition Disposition (needs filled in before D/C Order can be placed): Home, Self Care Charges/Coding Visit Charges Inpatient E&M: 33677 Disch Hosp >30min
[2023-02-17 14:30] VITALS: BP 100/79; PULSE 72; RESP 18; TEMP 36.4; O2SAT 96
== END 2023-02-17 14:50 | disposition home or self-care (01) | DRG 439 ==
LOC: ED 19:45 → MS3 22:26
PROVIDERS: Internal Medicine Gastroenterology; Admitting Provider Internal Medicine; Emergency Provider Emergency Medicine; PCP Nurse Practitioner Family; Visit Provider Internal Medicine
DX: K85.80 Other acute pancreatitis without necrosis or infection (principal); K86.3 Pseudocyst of pancreas; E03.9 Hypothyroidism, unspecified; J44.9 Chronic obstructive pulmonary disease, unspecified; K21.9 Gastro-esophageal reflux disease without esophagitis; E86.0 Dehydration; Z68.20 Body mass index [BMI] 20.0-20.9, adult; Z90.49 Acquired absence of other specified parts of digestive tract; Z79.899 Other long term (current) drug therapy; Z87.891 Personal history of nicotine dependence
CPT/HCPCS: 36415; 71046; 74177; 80048; 80053; 80076; 81001; 82150; 83605; 83615; 83690; 83735; 84484; 85025; 85652; 86140; 93005; 94668; 96361; 96374; 96375; 97802; 99252; 99284; J7030; J7050; J7120; Q9967; A4216; G0463; J2405

== ENCOUNTER → 2023-02-19 | Outpatient (CLI) | payer MEDICARE, SELFPAY ==
[2023-02-19 10:05] LABS: Hematocrit 36.7 % (37-47); Hemoglobin 11.7 g/dL (12.0-15.0); Mean Corp Hgb Conc 31.9 g/dL (32-36); Mean Corpuscular Hgb 31.5 pg (27.0-32.0); Mean Corpuscular Volume 98.7 fL (81-99); Mean Platelet Vol. 8.8 fl (6.2-12.0); Platelet Count 442 K/mm3 (150-450); RBC Distribution Width CV 12.9 % (11.6-14.6); Red Blood Count 3.72 M/mm3 (4.2-5.4); White Blood Count 10.5 K/mm3 (4.4-11.0)
[2023-02-19 10:43] LABS: Amylase 96 U/L (25-115); Lipase 187 U/L (13-75)
== END | disposition home or self-care (01) ==
PROVIDERS: PCP Nurse Practitioner Family; Referring Provider Internal Medicine; Visit Provider Internal Medicine
DX: K86.3 Pseudocyst of pancreas (principal); K85.90 Acute pancreatitis without necrosis or infection, unspecified
CPT/HCPCS: 36415; 82150; 83690; 85027; 86140

== ENCOUNTER → 2023-02-26 | Outpatient (CLI) | payer MEDICARE, SELFPAY ==
[2023-02-26 09:12] LABS: Erythrocyte Sedimentation Rate 6 mm/hr (0-30)
[2023-02-26 09:14] LABS: Absolute Lymphocyte Count 1.57 X10^3/uL (0.83-4.51); Absolute Neutrophil Count 7.7 X10^3/uL (2.0-7.7); Basophil# 0.08 X10^3/uL; Basophil% 0.8 % (0-1); Eosinophil# 0.36 X10^3/uL; Eosinophils% 3.4 % (0-5); Hemoglobin 12.4 g/dL (12.0-15.0); Lymphocyte # 1.57 X10^3/ul (0.83-4.51); Lymphocyte % 14.9 % (19-41); Mean Corpuscular Hgb 30.9 pg (27.0-32.0); Mean Corpuscular Volume 99.8 fL (81-99); Monocyte# 0.83 X10^3/uL; Monocyte% 7.9 % (0-10); NRBC Flagged by Analyzer 0 % (0-5); Neutrophil # 7.69 X10^3/uL (2.7-7.7); Neutrophil % 72.7 % (47-70); Platelet Count 426 K/mm3 (150-450); RBC Distribution Width CV 13.3 % (11.6-14.6); RBC Distribution Width SD 48.4 fl (35.1-43.9); Red Blood Count 4.01 M/mm3 (4.2-5.4); White Blood Count 10.6 K/mm3 (4.4-11.0)
[2023-02-26 09:41] LABS: ALB/GLOB Ratio 0.8 RATIO (0.9-2.4); AST(SGOT) 14 U/L (15-37); Alanine Aminotransfer ALT/SGPT 13 U/L (13-56); Albumin, Serum 3.1 g/dL (3.2-5.0); Alkaline Phosphatase 85 U/L (45-117); Anion Gap 1 (5-15); BUN 11 mg/dL (7-18); BUN/Creat Ratio 10.9 RATIO (10-20); CRP 7.88 mg/L (0.0-3.0); Calcium,Total 9.7 mg/dL (8.5-10.1); Chloride 107 mmol/L (98-107); Creatinine, Serum 1.01 mg/dL (0.55-1.02); EST Glomerular Filtration Rate 57 mL/min (>60); Est Glom Filt Rate - Afr Amer 69 mL/min (>60); Globulin 4.1 g/dL (2.2-4.2); Glucose 107 mg/dL (74-106); Lipase 158 U/L (13-75); Potassium 4.2 mmol/L (3.5-5.1); Protein, Total 7.2 g/dL (6.4-8.2); Sodium Level 138 mmol/L (136-145)
== END | disposition home or self-care (01) ==
LOC: LAB 08:52
PROVIDERS: PCP Nurse Practitioner Family; Referring Provider Internal Medicine Gastroenterology; Visit Provider Internal Medicine Gastroenterology
DX: K85.90 Acute pancreatitis without necrosis or infection, unspecified (principal); K83.8 Other specified diseases of biliary tract; R10.9 Unspecified abdominal pain
CPT/HCPCS: 36415; 80053; 83690; 85025; 85652; 86140

== ENCOUNTER → 2023-03-04 | Outpatient (CLI) | payer MEDICARE, SELFPAY ==
[2023-03-04 09:35] LABS: Bacteria 0 SEEN /hpf (None Seen); Mucous, Urine 0 SEEN /hpf (<or=2+); Red Blood Cells-Urine 0 SEEN /hpf (0-5); Squamous Epithelial Cells - UA 0 SEEN /hpf (5-10); White Blood Cells 0 SEEN /hpf (0-5)
--- NOTE | 2023-03-04 09:45 | RAD_ITS ---
STUDY: X-RAY - ABDOMEN/PELVIS REASON FOR EXAM: Female, 72 years old. Abdominal pain and constipation TECHNIQUE: Single AP view of the abdomen / pelvis. COMPARISON: None. FINDINGS: Normal visualized lung bases. Large amount of fecal material is seen in the rectosigmoid colon. A biliary stent is seen in the common bile duct. The visualized liver, spleen and kidneys are grossly normal in size and morphology. Normal soft tissue structures. 3 metallic screws are seen transfixing the right femoral neck. RAD/Abdomen Single View IMPRESSION: Large amount of fecal material is seen in the rectosigmoid colon. A stent is seen within the common bile duct. Electronically Signed: Omar Leary MD at 10:17 EDT ,
[2023-03-04 11:09] LABS: Color, Urine Yellow (Yellow); Glucose, Dipstick Normal (Normal); Ketone-Dipstick Negative (Negative); Leukocyte Esterase-Dipstick Negative /ul (Negative); Nitrite-Dipstick Negative (Negative); Occult Blood-Urine 10 /ul (Negative); Protein-Dipstick Negative (Negative); Specific Gravity, Urine 1.015 (1.002-1.030); Urine Bilirubin Dipstick Negative (Negative); Urine Clarity Clear (Clear); Urine Urobilinogen Normal (Normal)
[2023-03-04 11:13] LABS: Absolute Lymphocyte Count 2.02 X10^3/uL (0.83-4.51); Basophil# 0.08 X10^3/uL; Basophil% 0.7 % (0-1); Eosinophil# 0.12 X10^3/uL; Hemoglobin 13.5 g/dL (12.0-15.0); Lymphocyte # 2.02 X10^3/ul (0.83-4.51); Lymphocyte % 16.6 % (19-41); Mean Corp Hgb Conc 31.4 g/dL (32-36); Mean Corpuscular Hgb 31.1 pg (27.0-32.0); Mean Corpuscular Volume 99.1 fL (81-99); Mean Platelet Vol. 9.8 fl (6.2-12.0); Monocyte# 0.96 X10^3/uL; Monocyte% 7.9 % (0-10); NRBC Flagged by Analyzer 0 % (0-5); Neutrophil # 8.96 X10^3/uL (2.7-7.7); Neutrophil % 73.4 % (47-70); Platelet Count 454 K/mm3 (150-450); RBC Distribution Width CV 13.4 % (11.6-14.6); RBC Distribution Width SD 49.1 fl (35.1-43.9); Red Blood Count 4.34 M/mm3 (4.2-5.4); White Blood Count 12.2 K/mm3 (4.4-11.0)
[2023-03-04 11:14] LABS: Erythrocyte Sedimentation Rate 19 mm/hr (0-30)
[2023-03-04 11:39] LABS: ALB/GLOB Ratio 0.8 RATIO (0.9-2.4); AST(SGOT) 18 U/L (15-37); Alanine Aminotransfer ALT/SGPT 15 U/L (13-56); Albumin, Serum 3.5 g/dL (3.2-5.0); Alkaline Phosphatase 96 U/L (45-117); Amylase 73 U/L (25-115); Anion Gap 5 (5-15); BUN 10 mg/dL (7-18); BUN/Creat Ratio 10.9 RATIO (10-20); CRP 6.25 mg/L (0.0-3.0); Chloride 103 mmol/L (98-107); Creatinine, Serum 0.92 mg/dL (0.55-1.02); EST Glomerular Filtration Rate 64 mL/min (>60); Est Glom Filt Rate - Afr Amer 77 mL/min (>60); Globulin 4.4 g/dL (2.2-4.2); Glucose 116 mg/dL (74-106); Lipase 89 U/L (13-75); Protein, Total 7.9 g/dL (6.4-8.2); Sodium Level 135 mmol/L (136-145)
== END | disposition home or self-care (01) ==
PROVIDERS: PCP Nurse Practitioner Family; Referring Provider Internal Medicine Gastroenterology; Visit Provider Internal Medicine Gastroenterology
DX: K86.1 Other chronic pancreatitis (principal); R10.84 Generalized abdominal pain
CPT/HCPCS: 36415; 74018; 80053; 81001; 82150; 83690; 85025; 85652; 86140

== ENCOUNTER 2023-04-27 10:50 | Day surgery (SDC) | payer MEDICARE, SELFPAY ==
--- NOTE | 2023-04-27 11:00 | HP.PCM_ITS ---
History and Physical Date of Admission: 04/27/23 72 F who presents to the office today for GI Hx elevated lipase, elevated AP, bloating, abdominal pain, hiatal heria, GERD, functional bowel disorder. PMH osteopenia/porosis, arthritis, COPD, atherosclerosis, anisometropia, anxiety/depression, hyperlipidemia, hypothyroid, herpes zoster of eye. GI Dr. Duval established previously. ? EGD 06.23.19 erythematous esophagus. Reactive gastropathy. H.pylori negative. PCP OV 3.01.20 as f/u noting stomach upset/upper abdominal discomfort radiating into her back. Start famotidine PRN and sucralfate (previously helpful) [facility] ED 08.05.22 abdominal pain. Cardiac workup WNL ? Biochemical CBC, CMP, troponin without pertinent abnormality. ? AST H45-ALT H94-AP H120 (first elevation), lipase H427 ? CT abd/pel 3.01.20 s/p cholecystectomy; renal cyst; diverticulosis. BGI review notes dilation of CBD. *BGI established 5.. epigastric/chest pain extending into her back occurring weekly or less with intermittent episodes of N/V every couple of months. Reflux is also a difficulty but overall well managed with pantoprazole 40mg BID (for 5- 10 years, no kidney disease admits to some bone loss). Last colonoscopy has been many years but does Cologuard regularly with negative results each time. MRCP 6.7.23 intrahepatic bile ducts dilate, left>right; CBD dilated 10.8mm; CBD dilated 13.5cm up to ampulla; pancreatic duct dilated 2.4mm; no filling defects of biliary tree. GET 6.16.23 32.73 minutes HIDA 6.19.23 WNL ERCP and EGD 01.26.23 EGD without visual abnormality ERCP single lower MBD stricture; choledocholithiasis; biliary sphincterotomy/sweep performed with stent placed in CBD. Malignancy neg [facility] hospitalization 01.26.23-01.28.23 for management of post-procedure pancreatitis ? CT abd/pel CBD stent and secondary pneumobilia; duodenal inflammatory changes. [facility] hospitalization 02.14.23-02.17.23 for management of recurrent pancreatitis. ? CT abd/pel pancreatic stranding with fluid collection with largest measuring 2.8x1.5cm, pancreatitis; colonic diverticulosis OV 02.26. upper abdominal discomfort which extends into her back with chest/epigastric burning that is present at all times and loose stools twice a day. ROS Const Constitutional: No anorexia, fatigue, fever(s), weight change or sleep problems Eyes Eyes: No change in vision ENT ENT: No abnormal hearing, difficulty swallowing, mouth lesions, tongue swelling or throat swelling Resp Respiratory: No cough or shortness of breath Cardio Cardiology: No chest pain at rest, chest pain with exertion, shortness of breath or dyspnea on exertion Gastro GI: No difficulty swallowing Genitourinary-Female: No difficulty urinating or burning urination Musc Musculoskeletal: No joint pain, joint swelling, muscle weakness or decreased muscle mass Skin Skin: No hair loss in leg, yellowing of the eye, itchy eyes, rash, skin ulcer or skin swelling Neuro Neurology: No abnormal hearing, abnormal movements, confusion, unsteady gait/balance or memory loss Psych Psychiatric: No anxiety, No confusion and No memory loss Endo Endocrine: No fatigue or weight change Aller/Imm Allergy/Immunologic: No itchy eyes, throat swelling or tongue swelling Willis/Lymp Hematologic/Lymphatic: No easy bleeding, easy bruising or enlarged lymph nodes Exam Const General: cooperative and comfortable Nutritional Appearance: average body habitus and well nourished [facility] Head: normal to inspection Ears: hearing grossly normal bilaterally Nose: external nose normal Face and sinus: normal facial exam Mouth: oral mucosae normal Throat: posterior oropharynx normal Eyes General: appearance normal, both eyes and all related structures Neck Neck: normal visual inspection Chest Chest palpation & inspection: normal inspection of the chest and normal palpation of entire chest wall Resp Effort & Inspection: normal respiratory effort Auscultation: Bilateral: Clear to Auscultation Cardio Palpation: normal PMI Rate: regular rate Rhythm: regular rhythm GI Inspection: normal to inspection Auscultation: normal bowel sounds Percussion: normal to percussion Palpation: no hepatosplenomegaly Skin General: no rashes or lesions noted Neuro General: patient alert Extrem General: normal to inspection Psych Affect: normal affect Quality Reporting Tobacco Screening ([facility] 138) Smoking Status: Former smoker Assessment and Plan Assessment and Plan (1) Dilated bile duct: Status: Chronic (2) Abdominal pain: Status: Chronic Qualifiers: Abdominal location: generalized Qualified Code(s): R10.84 - Generalized abdominal pain Plan: Abdominal pain, gastroparesis, gastritis celiac, sphincter of Oddi syndrome choledocholithiasis. After reviewing her lab work she does have history of increased AST, ALT and alkaline phosphatase with a 2:1 ratio from ALT AST. This is consistent with either medications, virus or sphincter of Oddi syndrome versus choledocholithiasis. On her CT she does have dilated pancreatic duct and common. Her common bile duct is bigger than it would have been expected postcholecystectomy 73-year-old. Also the pancreatic duct should not be dilated. She will see pain along with a HIDA scan to see the patency of sphincter of Oddi. She will need to evaluate upper GI tract to make sure she does not have peptic ulcer disease, H. pylori associated gastritis or retained food secondary to gastroparesis. (3) Pancreatitis: Status: Chronic Qualifiers: Chronicity: chronic Pancreatitis type: other Qualified Code(s): K86.1 - Other chronic pancreatitis Orders: Orders Comprehensive Metabolic Profil Today K83.8 - Other specified diseases of biliary tract, K85.90 - Acute pancreatitis without necrosis or infection, unspecified, R10.9 - Unspecified abdominal pain CBC W/Diff, Automated Today K83.8 - Other specified diseases of biliary tract, K85.90 - Acute pancreatitis without necrosis or infection, unspecified, R10.2 - Pelvic and perineal pain, R10.9 - Unspecified abdominal pain Erythrocyte Sed Rate Today K83.8 - Other specified diseases of biliary tract, K85.90 - Acute pancreatitis without necrosis or infection, unspecified, R10.9 - Unspecified abdominal pain CRP Today K83.8 - Other specified diseases of biliary tract, K85.90 - Acute pancreatitis without necrosis or infection, unspecified, R10.9 - Unspecified abd ominal pain Lipase Today K83.8 - Other specified diseases of biliary tract, K85.90 - Acute pancreatitis without necrosis or infection, unspecified, R10.9 - Unspecified abdominal pain ERCP Biliary/Pancreas 04/27/23 K83.8 - Other specified diseases of biliary tract, K85.90 - Acute pancreatitis without necrosis or infection, unspecified Medications: New oxycodone 5 mg PO BID PRN 60 caps 0RF pain 30 days K83.8 - Other specified diseases of biliary tract, K85.90 - Acute pancreatitis without necrosis or infection, unspecified, R10.9 - Unspecified abdominal pain pantoprazole 40 mg PO BID 60 tabs 3RF I have examined the patient and the H&P has been reviewed. There are no clinical changes since date of exam.
--- NOTE | 2023-04-27 11:15 | EKG12_ITS ---
Test Reason : PREOP Blood Pressure : / mmHG Vent. Rate : 068 BPM Atrial Rate : 068 BPM P-R Int : 132 ms QRS Dur : 068 ms QT Int : 390 ms P-R-T Axes : 058 032 071 degrees QTc Int : 414 ms Normal sinus rhythm Normal ECG When compared with ECG of 14-FEB-2023 08:29, ST no longer depressed in Anterior leads T wave inversion no longer evident in Lateral leads Confirmed by AUTUMN ARREOLA, LUIS ([id number]), editor producer JAN DOUGHERTY ([id number]) on 04/30/2023 9:17:24 AM Referred By: Adriane Sarah Confirmed By:LUIS LEYVA MD
[2023-04-27 11:16] VITALS: BP 130/80; PULSE 83; RESP 20; TEMP 36.7; O2SAT 100; BMI 21.1
[2023-04-27] MEDS: Lactated Ringers 1,000 ML 15 ML IV (11:26)
--- NOTE | 2023-04-27 12:00 | FLU_PTH ---
PATIENT: ALIX AVILA LOC: EN U#:[id number] AGE/SX: 73/F ROOM: RE04/27/[address]: Dr. Moses Alcocer DO : 1950 BED: DIS: 04/27/2023 SPEC #: [id number] RECD: 04/27/23 14:15 STATUS: CHARANJIT ZAINAB #: [id number] BERNARDINO: 04/27/23 12:[address]: Moses Alcocer DEPT: CYTOLOGY RECD BY: Deborah Mosher ENTERED: 04/28/23 07:30 SP TYPE: Fluid OTHR DR: Adriane Sarah, ELECTRONIC PARTS DESIGNER-C Tissues: Bile duct, NOS Procedures: Special Stain Group II Surgery Specimen Level IV Cytospin Fluid HEADER OPERATION: ERCP PRE-OP DIAGNOSIS: Dilated Bile Duct, Abdominal Pain TISSUE SUBMITTED: Biliary Stent DIAGNOSIS CYTOLOGY Biliary stent brushings and fluid (cytospin and cell block): Negative for malignant cells. AM:gallo 04/29/2023 CYTOLOGY STUDY Slides are reviewed. CYTOLOGY GROSS Received is a metallic endoscopic cytobrush with adherent minute fragments of echeverria-red tissue brush in 2 ml of clear red fluid and labeled with the patient's name and and designated per the requisition as biliary stent. The material is dislodged from the brush and submitted for cytology preparation including cell block. / gallo 04/28/2023 TC:5 CPT: 83988, 22358
--- NOTE | 2023-04-27 12:00 | RAD_ITS ---
STUDY: ERCP REASON FOR EXAM: Female, 73 years old. ERCP FLUOROSCOPY TIME (if supplied): ( 2 minutes and 24 seconds ). 47.4 mGy TECHNIQUE: Intraoperative imaging provided for ERCP. COMPARISON: None. FINDINGS: Dilated intra and extrahepatic biliary duct. RAD/ERCP Biliary/Pancreas IMPRESSION: Dilated intra and extrahepatic biliary ducts. Electronically Signed: Omar Leary MD at 10:35 EST ,
--- NOTE | 2023-04-27 13:05 | OP.ERCP_ITS ---
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 Refer to note in patient chart for documentation of history and physical. Patient has symptoms of chronic right upper quadrant abdominal pain. Her most recent ERCP for biliary evaluation, ERCP for stent and ERCP for stone removal. Complications: No immediate complications. Procedure: Pre-Anesthesia Assessment: - Prior to the procedure, a History and Physical was performed, and patient medications and allergies were reviewed. The patient is competent. The risks and benefits of the procedure and the sedation options and risks were discussed with the patient. All questions were answered and informed consent was obtained. Patient identification and proposed procedure were verified by the physician in the pre-procedure area. Mental Status Examination: alert and oriented. Airway Examination: normal oropharyngeal airway and neck mobility. Respiratory Examination: clear to auscultation. CV Examination: normal. Prophylactic Antibiotics: The patient does not require prophylactic antibiotics. Prior Anticoagulants: The patient has taken no anticoagulant or antiplatelet agents. ASA Grade Assessment: II - A patient with mild systemic disease. After reviewing the risks and benefits, the patient was deemed in satisfactory condition to undergo the procedure. The anesthesia plan was to use general anesthesia. Immediately prior to administration of medications, the patient was re-assessed for adequacy to receive sedatives. The heart rate, respiratory rate, oxygen saturations, blood pressure, adequacy of pulmonary ventilation, and response to care were monitored throughout the procedure. The physical status of the patient was re-assessed after the procedure. After obtaining informed consent, the scope was passed under direct vision. Throughout the procedure, the patient's blood pressure, pulse, and oxygen saturations were monitored continuously. The Duodenoscope was introduced through the mouth, and advanced to the duodenum and used to inject contrast into the bile duct. The ERCP was accomplished without difficulty. The patient tolerated the procedure well. Scope In: 12:38:54 PM Scope Out: 12:55:21 PM Total Procedure Duration Time 0 hours 16 minutes 27 seconds Findings: The submarine element coordinator film was normal. The esophagus was successfully intubated under direct vision. The scope was advanced to a normal major papilla in the descending duodenum without detailed examination of the pharynx, larynx and associated structures, and upper GI tract. The upper GI tract was grossly normal. The bile duct was deeply cannulated. Contrast was injected. I personally interpreted the bile duct images. There was brisk flow of contrast through the ducts. Image quality was excellent. Contrast extended to the entire biliary tree. The main bile duct was diffusely dilated, uncertain significance. The largest diameter was 20 mm. A cholecystectomy had been performed. A straight Roadrunner wire was passed into the biliary tree. A 5 mm biliary sphincterotomy was made with a traction (standard) sphincterotome using ERBE electrocautery. There was no post-sphincterotomy bleeding. To discover objects, the biliary tree was swept with a 15 mm balloon starting at the bifurcation. Sludge was swept from the duct. All stones were removed. One stent was removed from the biliary tree using a snare and sent for cytology. The stent was found to be patent via the water column test. Impression: - The entire main bile duct was dilated, uncertain significance. - The patient has had a cholecystectomy. - Choledocholithiasis was found. Complete removal was accomplished by biliary sphincterotomy and balloon extraction. - A biliary sphincterotomy was performed. - The biliary tree was swept. - One stent was removed from the biliary tree. Procedure Code(s): --- Professional --- 69726, Endoscopic retrograde cholangiopancreatography (ERCP); with removal of foreign body(s) or stent(s) from biliary/pancreatic duct(s) 85442, Endoscopic retrograde cholangiopancreatography (ERCP); with removal of calculi/debris from biliary/pancreatic duct(s) 33629, Endoscopic retrograde cholangiopancreatography (ERCP); with sphincterotomy/papillotomy 78225, 26, Endoscopic catheterization of the biliary ductal system, radiological supervision and interpretation CPT copyright 2021 [employer]. All rights reserved. The codes documented in this report are preliminary and upon prekindergarten teacher review may be revised to meet current compliance requirements. Moses Alcocer DO 04/27/2023 1:05:06 PM This report has been signed electronically. Number of Addenda: 0 Note Initiated On: 04/27/2023 11:53 AM
--- NOTE | 2023-04-27 13:05 | OP.CCLET_ITS ---
04/27/2023 [facility] Cid Re : ERCP procedure for Laine Over Saran Sarah This procedure was performed on Thursday, April 27, 2023. My impressions and recommendations are as follows: Impressions : - The entire main bile duct was dilated, uncertain significance. - The patient has had a cholecystectomy. - Choledocholithiasis was found. Complete removal was accomplished by biliary sphincterotomy and balloon extraction. - A biliary sphincterotomy was performed. - The biliary tree was swept. - One stent was removed from the biliary tree. Recommendations : My findings are described in the full procedure note, which is enclosed. If I can be of further assistance, please feel free to contact me at . Sincerely, Moses Alcocer, 04/27/2023 1:05:06 PM This report has been signed electronically.
[2023-04-27 13:06] VITALS: BP 112/65; BP 130/80; PULSE 110; RESP 16; TEMP 36.3; O2SAT 98
[2023-04-27 13:15] VITALS: BP 130/80; BP 99/57; PULSE 82; RESP 16; O2SAT 100
[2023-04-27 13:26] VITALS: BP 111/63; BP 130/80; PULSE 84; RESP 16; O2SAT 100
[2023-04-27 13:45] VITALS: BP 130/80
== END 2023-04-27 14:10 | disposition home or self-care (01) ==
LOC: EN 10:52 → AC 10:53
PROVIDERS: PCP Nurse Practitioner Family; Referring Provider Nurse Practitioner Family; Visit Provider Internal Medicine Gastroenterology
PROC: (CPT 43260; principal; 2023-04-27 11:40)
DX: K80.51 Calculus of bile duct without cholangitis or cholecystitis with obstruction (principal); J44.9 Chronic obstructive pulmonary disease, unspecified; K83.8 Other specified diseases of biliary tract; F41.9 Anxiety disorder, unspecified; E03.9 Hypothyroidism, unspecified; K21.9 Gastro-esophageal reflux disease without esophagitis; E55.9 Vitamin D deficiency, unspecified; Z87.891 Personal history of nicotine dependence; Z79.899 Other long term (current) drug therapy
CPT/HCPCS: 43275; 43264; 43262; J7120; 74330; 76000; 88108; 88304; 88305; 88313; J2405

== ENCOUNTER 2023-04-29 02:47 | Inpatient (IN) | payer MEDICARE, SELFPAY ==
[2023-04-29] VITALS (14 sets, daily range): BP systolic 90–101; BP diastolic 44–66; PULSE 60–135; RESP 16–24; TEMP 36.1–37.2; O2SAT 87–100; BMI 20.4; BMI 18.9
--- NOTE | 2023-04-29 03:18 | CT_ITS ---
STUDY: CT ABDOMEN AND PELVIS WITH CONTRAST REASON FOR EXAM: Female, 73 years old patient with post operative pain. Patient had ERCP two days ago. RADIATION DOSAGE (If Supplied By Facility): CTDIvol = ( 18.07 ) mGy, DLP = ( 440.63 ) mGycm TECHNIQUE: Transaxial images were obtained from the dome of the diaphragm to the symphysis pubis without oral contrast. 100 ml of IV Isovue-370 was administered. Sagittal and coronal images were reconstructed. Individualized dose optimization techniques were used for this CT. COMPARISON: CT of abdomen and pelvis dated February 14, 2023. FINDINGS: The visualized lung bases are unremarkable. The visualized portions of the heart are within normal limits. There is abnormal heterogeneous enhancement of the right lobe of the liver that could represent early abscess. This measures approximately 2.7 cm in greatest dimension. There is non-visualization of the gallbladder, which may be secondary to prior cholecystectomy. There is some residual dilatation of the common hepatic and common bile duct with maximum transverse dimension of approximately 1.5 cm. Normal spleen. There is a cystic lesion adjacent to the pancreatic tail that measures approximately 1.9 x 1.3 x 1.6 cm. Normal bilateral adrenal glands. There are multiple bilateral renal cysts with the largest on the right measuring 2.1 cm. There is no obvious hydronephrosis, hydroureter or radiopaque renal calculus. Normal visualized stomach. There is a some fluid-filled small bowel with enhancement of the zabala suggesting possible infectious or inflammatory enteritis. There is minimal stool visible within the colon which is primarily nondistended. There are multiple sigmoid colon diverticula. There is a calcified appendicolith. There is multifocal atherosclerotic calcification of the abdominal aorta and iliac arteries, without a demonstrated aneurysm. Normal inferior vena cava. Normal retroperitoneum. Normal urinary bladder. There is absence of the uterus consistent with a prior hysterectomy. Normal abdominal wall. The bones are osteopenic. Degenerative disc disease at L4-5 with disc space narrowing and vacuum disc phenomenon. The postoperative changes of the proximal right femur. The bony pelvis appears to be intact. CT/Abdomen/Pelvis W IV Cont ONLY IMPRESSION: 1. Finding suggests early hepatic abscess. 2. Possible sequela of infectious or inflammatory enteritis. Electronically Signed: Zee Gatica MD at 4:52 EST ,
--- NOTE | 2023-04-29 03:18 | EKG12_ITS ---
Test Reason : dizzy Blood Pressure : / mmHG Vent. Rate : 120 BPM Atrial Rate : 120 BPM P-R Int : 138 ms QRS Dur : 078 ms QT Int : 294 ms P-R-T Axes : 044 022 095 degrees QTc Int : 415 ms Sinus tachycardia with occasional Premature ventricular complexes Nonspecific ST and T wave abnormality Abnormal ECG Confirmed by AUTUMN ARREOLA, LUIS ([id number]), desk editor JAN DOUGHERTY ([id number]) on 04/29/2023 10:53:59 AM Referred By: Confirmed By:LUIS LEYVA MD
--- NOTE | 2023-04-29 03:19 | EDS_ITS ---
HPI History of Present Illness Chief Complaint: Dizziness Informant: patient and spouse/S.O. Narrative Narrative: 33-year-old female presenting to the emergency room with vomiting and dizziness. Patient states that yesterday morning she woke up feeling chilled. She developed body aches and did not have much of an appetite. She states that she was in bad and awoke earlier in the night with vomiting and also developed diarrhea. She states that with her vomiting she became lightheaded/dizzy. She reports no abdominal pain but states that since having a ERCP and stent removal from the bile duct 2 days ago (Dr. Alcocer) she has had a pain in the back. Patient was admitted in December for pancreatitis after ERCP/stent placement with choledocholithiasis noted. No documented fever today. [facility] Medical History Anisometropia Anxiety Arthralgia Arthritis Bloating COPD (chronic obstructive pulmonary disease) Elevated alkaline phosphatase level Elevated lipase Former smoker Functional intestinal disorder, unspecified GERD (gastroesophageal reflux disease) Hiatal hernia History of echocardiogram History of edema History of pain when walking History of stress test HLD (hyperlipidemia) Hypothyroidism Kidney stones Leg cramps Osteoporosis Post-menopausal Vitamin D deficiency Wears hearing aid Wears partial dentures Home Medications levothyroxine 75 mcg tablet 75 mcg PO DAILY 11/15/14 [History Last Taken Unknown] pantoprazole 40 mg tablet,delayed release 40 mg PO QHS 11/15/14 [History Last Taken Unknown] rosuvastatin 10 mg tablet 10 mg PO QODAY 03/26/17 [History Last Taken Unknown] alprazolam 0.5 mg tablet 0.5 mg PO DAILY PRN anxiety 08/10/22 [History Last Taken Unknown] cholecalciferol (vitamin D3) 50 mcg (2,000 unit) capsule 50 mcg PO DAILY 08/10/22 [History Last Taken Unknown] coenzyme Q10 100 mg capsule (Co Q-10) 100 mg PO DAILY heart health 01/26/23 [His tory Last Taken Unknown] ondansetron HCl 8 mg tablet 8 mg PO Q8H PRN nausea and vomiting #20 tabs 01/28/23 [Rx Last Taken Unknown] oxycodone 5 mg tablet 5 mg PO Q8H PRN pain 3 days #18 tabs 01/28/23 [Rx Last Taken Unknown] docusate sodium 100 mg capsule (Colace) 100 mg PO QHS 02/14/23 [History Last Taken Unknown] pantoprazole 40 mg tablet,delayed release 40 mg PO BID #60 tabs 02/26/23 [Rx Last Taken Unknown] Allergy/AdvReac Type Severity Reaction Status Date / Time Sulfa (Sulfonamide Allergy Intermediate Rash Verified 04/29/23 02:51 Antibiotics) ciprofloxacin [From Cipro] Allergy Swelling Verified 04/29/23 02:51 ciprofloxacin HCl Allergy Swelling Verified 04/29/23 02:51 [From Cipro] morphine AdvReac Inflammation Verified 04/29/23 02:51 of vein Family History Mother Diabetes Father Brain cancer Sister Cancer of kidney GERD (gastroesophageal reflux disease) Sister Atrial septal defect GERD (gastroesophageal reflux disease) Brother Atrial septal defect Surgical History H/O total hysterectomy History of cholecystectomy History of esophagogastroduodenoscopy (EGD) History of hip surgery Hx of colonoscopy Hx of discectomy Social History Smoking Status: Former smoker ROS ROS ED Constitutional Constitutional ED: Reports chills; Denies fever(s) or weight loss Eyes Eyes: Denies change in vision or diplopia ENT ENT ED: Denies ear pain, rhinorrhea or sore throat Cardiovascular Cardiovascular: Denies chest pain, orthopnea, palpitations or racing heartbeat Respiratory/Chest Respiratory/Chest: Denies cough, dyspnea or orthopnea Gastrointestinal Gastrointestinal: Reports diarrhea, nausea and vomiting; Denies abdominal pain Genitourinary Genitourinary ED: Denies dysuria, hematuria or urinary frequency Musculoskeletal Musculoskeletal: Reports back pain and myalgias; Denies arthralgias Integumentary Denies abscess or rash Neurologic Neurologic: Denies headache(s) or weakness Psychiatric Psychiatric: Denies anxiety, depression, suicidal ideation or suicidal thoughts Endocrine Endocrinology: Denies polydipsia, polyphagia or polyuria Allergic/Immunologic Allergic/Immunologic ED: Denies mouth swelling, tongue swelling or urticaria EXAM Physical Exam Const Vital Signs: 04/29/23 02:48 04/29/23 03:03 04/29/23 03:03 Temperature 98.3 F Temperature Source Temporal Pulse Rate 135 H 126 H Respiratory Rate 18 20 H Respiratory Effort Normal Non-Labored Respiratory Pattern Normal Blood Pressure 95/44 L 90/61 Blood Pressure Mean 61 70 Pulse Ox 93 91 Oxygen Delivery Method Room Air Room Air 04/29/23 03:28 04/29/23 04:12 04/29/23 05:47 Temperature 98.3 F 98.1 F 99.0 F Temperature Source Oral Oral Oral Pulse Rate 113 H 112 H Respiratory Rate 24 H 18 Respiratory Effort Respiratory Pattern Blood Pressure 101/54 L 92/59 L Blood Pressure Mean 69 70 Pulse Ox 92 92 Oxygen Delivery Method Room Air Room Air Positive well nourished and well developed General Appearance ED: well developed HEENT Reports normocephalic, head/scalp atraumatic and dry mucous membranes Mouth ED: Yes dry mucous membranes Mouth: dry mucous membranes Eyes PERRL and EOMs intact bilaterally Neck no lymphadenopathy, supple and no JVD Resp normal respiratory effort and clear to auscultation bilaterally Cardio regular rate and regular rhythm Rate: tachycardic GI normal to inspection, nondistended, normoactive bowel sounds and non-tender Palpation: soft Back/Spine no CVA tenderness and normal ROM Extremity normal to inspection General Extremety ED: Negative for edema General Extremity: Negative for edema Neuro oriented x3 and CN's II-XII intact bilaterally Sensorium / Orientation: alert Motor Exam: strength 5/5 throughout Psych mental status grossly normal Mood & Affect: Negative for depressed or tearful Skin no rashes or lesions noted and no wounds MDM MDM MDM Narrative Medical decision making narrative: Patient with acute hypotension and tachycardia. She started IV fluids and received 2 L bolus. White count of 10.4 hemoglobin 13.4 and platelet count of 215. Creatinine 1.45 BUN of 19. Anion gap of 10 CO2 24. Total bilirubin 1.2 direct 0.54 AST of 89 ALT of 88 alk phos 129 and lipase 66. Urine analysis without infection. COVID influenza negative. My independent interpretation of the chest x-ray is no acute process. Patient attempted to ambulate to the bathroom and was excess exceedingly unsteady heart rate ray to around 140 getting up to the bedside. When we got her back into bed blood pressure was down to 87/64 after 2 liters. I rechecked her temperature she was up to 99.2. Patient's abdominal exam shows mild tenderness diffusely. CT of the abdomen pelvis with IV contrast is concerning for a area on the right hepatic lobe that appears distinctly different from CT dated 14 February 2023. Concern would be for hepatic abscess. Blood cultures were obtained. Patient received Zosyn. I spoke with Dr. Alcocer for gastroenterology and Dr. Acuña for medicine. Plan for admission. Current blood pressure 98/57 with a heart rate of 120. She is mentating normally. Capillary refill less than 3 seconds. History & Record Review Discussion w/independent historian: Patient and Family Additional record(s) reviewed:: Prior inpatient record, Prior outpatient record, Prior ED visit and Prior labs Lab Data Attestation: I reviewed the patient's lab results. Labs: Laboratory Results - last 24 hr 04/29/23 04/29/23 03:00 04:54 WBC 10.4 RBC 4.33 Hgb 13.4 Hct 41.7 MCV 96.3 MCH 30.9 MCHC 32.1 RDW Std Deviation 49.1 H RDW Coeff of Omer 13.7 Plt Count 215 MPV 10.0 Immature Gran % (Auto) 0.600 Neut % (Auto) 92.1 H Lymph % (Auto) 5.1 L [place] % (Auto) 1.3 Eos % (Auto) 0.2 Baso % (Auto) 0.7 Absolute Neuts (auto) 9.6 H Absolute Lymphs (auto) 0.53 L Nucleated RBC % 0 Differential Comment SCANNED Sodium 137 Potassium 3.5 Chloride 103 Carbon Dioxide 24.0 Anion Gap 10 BUN 19 H Creatinine 1.45 H Estim Creat Clear Calc 24.82 Est GFR (MDRD) Af Amer 46 L Est GFR (MDRD) Non-Af 38 L BUN/Creatinine Ratio 13.1 Glucose 203 H Calcium 9.2 Total Bilirubin 1.20 H Direct Bilirubin 0.54 H AST 89 H ALT 88 H Alkaline Phosphatase 129 H Total Protein 7.3 Albumin 3.4 Globulin 3.9 Lipase 66 Urine Color Yellow Urine Clarity Clear Urine pH 7.0 Ur Specific [place] 1.010 Urine Protein Negative Urine Glucose (UA) Normal Urine Ketones Negative Urine Occult Blood 25 H Urine Nitrite Negative Urine Bilirubin Negative Urine Urobilinogen Normal Ur Leukocyte Esterase Negative Urine RBC 0 SEEN Urine WBC 0 SEEN Ur Squamous Epith Cells 0 SEEN Urine Bacteria 0 SEEN Urine Mucus 0 SEEN Radiography Diagnostic Testing: Clinical Impression(s) from Imaging Studies Abdomen/Pelvis CT 04/29/23 03:18 IMPRESSION: 1. Finding suggests early hepatic abscess. 2. Possible sequela of infectious or inflammatory enteritis. Electronically Signed: Zee Gatica MD at 4:52 EST , Chest X-Ray 04/29/23 04:35 IMPRESSION: No radiographic evidence of acute cardiopulmonary disease. Electronically Signed: Zee Gatica MD at 5:28 EST , EKG Initial EKG: Attestation: I personally reviewed and interpreted this EKG as follows: Comments: Sinus tachycardia with a ventricular rate of 120 bpm. Noted PVC. Prior EKG tracings: available for review Prior: Unchanged Management Discussion w/another healthcare provider: Hospitalist and [facility]ist (GI (Dr. Alcocer)) Discharge Plan Dx/Rx/DC Orders Clinical Impression: Nausea, vomiting, and diarrhea, Acute dehydration, Orthostatic hypotension, Abscess of liver Disposition Disposition: Acute Care [facility]
[2023-04-29] MEDS: 0.9% Normal Saline (1000mL) 1,000 ML 1000 ML IV (03:25)
[2023-04-29] MEDS: Ondansetron 4 MG/2 ML Vial IV ×2 (03:25→12:10)
[2023-04-29 03:27] LABS: Absolute Lymphocyte Count 0.53 X10^3/uL (0.83-4.51); Absolute Neutrophil Count 9.6 X10^3/uL (2.0-7.7); Basophil# 0.07 X10^3/uL; Basophil% 0.7 % (0-1); Eosinophil# 0.02 X10^3/uL; Eosinophils% 0.2 % (0-5); Hematocrit 41.7 % (37-47); Hemoglobin 13.4 g/dL (12.0-15.0); Lymphocyte # 0.53 X10^3/ul (0.83-4.51); Lymphocyte % 5.1 % (19-41); Mean Corp Hgb Conc 32.1 g/dL (32-36); Mean Corpuscular Hgb 30.9 pg (27.0-32.0); Mean Corpuscular Volume 96.3 fL (81-99); Monocyte# 0.13 X10^3/uL; Monocyte% 1.3 % (0-10); NRBC Flagged by Analyzer 0 % (0-5); Neutrophil # 9.59 X10^3/uL (2.7-7.7); Neutrophil % 92.1 % (47-70); POSITIVE DIFFERENTIAL YES; POSITIVE MORPHOLOGY YES; Platelet Count 215 K/mm3 (150-450); RBC Distribution Width CV 13.7 % (11.6-14.6); RBC Distribution Width SD 49.1 fl (35.1-43.9); Red Blood Count 4.33 M/mm3 (4.2-5.4); White Blood Count 10.4 K/mm3 (4.4-11.0)
[2023-04-29 03:32] LABS: Differential Indicated SCAN CRITERIA MET
[2023-04-29 03:43] LABS: Differential Comment SCANNED
[2023-04-29 03:45] LABS: AST(SGOT) 89 U/L (15-37); Alanine Aminotransfer ALT/SGPT 88 U/L (13-56); Albumin, Serum 3.4 g/dL (3.2-5.0); Alkaline Phosphatase 129 U/L (45-117); Anion Gap 10 (5-15); BUN 19 mg/dL (7-18); BUN/Creat Ratio 13.1 RATIO (10-20); Bilirubin, Direct 0.54 mg/dL (0.00-0.30); Calcium,Total 9.2 mg/dL (8.5-10.1); Chloride 103 mmol/L (98-107); Creatinine, Serum 1.45 mg/dL (0.55-1.02); EST Glomerular Filtration Rate 38 mL/min (>60); Est Glom Filt Rate - Afr Amer 46 mL/min (>60); Estimated Creatinine Clearance 24.82 ml/min; Globulin 3.9 g/dL (2.2-4.2); Glucose 203 mg/dL (74-106); Lipase 66 U/L (13-75); Potassium 3.5 mmol/L (3.5-5.1); Protein, Total 7.3 g/dL (6.4-8.2); Sodium Level 137 mmol/L (136-145)
[2023-04-29] MEDS: 0.9% Normal Saline (1000mL) 1,000 ML 999 ML IV ×2 (04:16→05:45)
--- NOTE | 2023-04-29 04:35 | RAD_ITS ---
STUDY: X-RAY CHEST REASON FOR EXAM: Female, 73 years old patient with hypotension. TECHNIQUE: Single AP portable view of the chest. COMPARISON: February 14, 2023. FINDINGS: Cardiac monitoring leads are present. The lungs are expanded. There is interstitial thickening visible in both lungs which may be secondary to pulmonary fibrosis. There is no obvious airspace consolidation. There is no demonstrated pleural abnormality. Normal size heart. Normal mediastinum and bert. Normal visualized pulmonary arteries. There is atherosclerotic calcification of the aortic arch with tortuosity. There is demineralization of the osseous structures. Normal visualized ribs, clavicles, and shoulders. There is no demonstrated abnormality of the visualized soft tissue structures of the upper abdomen. RAD/Chest 1 View (Portable) IMPRESSION: No radiographic evidence of acute cardiopulmonary disease. Electronically Signed: Zee Gatica MD at 5:28 EST ,
[2023-04-29 05:00] LABS: Bacteria 0 SEEN /hpf (None Seen); Mucous, Urine 0 SEEN /hpf (<or=2+); Red Blood Cells-Urine 0 SEEN /hpf (0-5); Squamous Epithelial Cells - UA 0 SEEN /hpf (5-10); White Blood Cells 0 SEEN /hpf (0-5)
[2023-04-29 05:01] LABS: Color, Urine Yellow (Yellow); Glucose, Dipstick Normal (Normal); Ketone-Dipstick Negative (Negative); Leukocyte Esterase-Dipstick Negative /ul (Negative); Nitrite-Dipstick Negative (Negative); Occult Blood-Urine 25 /ul (Negative); Protein-Dipstick Negative (Negative); Urine Bilirubin Dipstick Negative (Negative); Urine Clarity Clear (Clear); Urine Urobilinogen Normal (Normal)
[2023-04-29] MEDS: Piperacil/Tazobactam 4.5 GM in 0.9% Normal Saline (100mL MB+) 100 ML IV (05:45)
--- NOTE | 2023-04-29 06:15 | HP.PCM.HOS_ITS ---
[facility] - General General Date of Admission: 04/29/23 Date of Service: 04/29/23 Chief Complaint: dizziness. HPI Narrative ALIX AVILA, is a 73 F who presents with dizziness. Yesterday, patient was experiencing chills and malaise. Tonight, patient started experiencing dizziness when she stood up. Was concerned and presented to the hospital. She underwent a CAT scan of her abdomen pelvis that was concerning for developing early hepatic abscess. Patient on the underwent an ERCP with Dr. Alcocer where it was noted that patient had choledocholithiasis with complete removal and a biliary sphincterotomy performed. She did have a biliary stent removed. Patient stated that today she felt fine after the procedure but did have some some back pain. Systolic blood pressure was in the 90s and patient received 2 L of IV fluids in the emergency. Patient also received piperacillin/tazobactam in the emergency room. [facility] Medical History Anisometropia Anxiety Arthralgia Arthritis Bloating COPD (chronic obstructive pulmonary disease) Elevated alkaline phosphatase level Elevated lipase Former smoker Functional intestinal disorder, unspecified GERD (gastroesophageal reflux disease) Hiatal hernia History of echocardiogram History of edema History of pain when walking History of stress test HLD (hyperlipidemia) Hypothyroidism Kidney stones Leg cramps Osteoporosis Post-menopausal Vitamin D deficiency Wears hearing aid Wears partial dentures Home Medications levothyroxine 75 mcg tablet 75 mcg PO DAILY 11/15/14 [History Last Taken Unknown] rosuvastatin 10 mg tablet 10 mg PO QODAY 03/26/17 [History Last Taken 04/28/23] cholecalciferol (vitamin D3) 50 mcg (2,000 unit) capsule 50 mcg PO DAILY 08/10/22 [History Last Taken Unknown] coenzyme Q10 100 mg capsule (Co Q-10) 100 mg PO DAILY heart health 01/26/23 [History Last Taken Unknown] pantoprazole 40 mg tablet,delayed release 40 mg PO BID #60 tabs 02/26/23 [Rx Last Taken Unknown] Allergy/AdvReac Type Severity Reaction Status Date / Time Sulfa (Sulfonamide Allergy Intermediate Rash Verified 04/29/23 02:51 Antibiotics) ciprofloxacin [From Cipro] Allergy Swelling Verified 04/29/23 02:51 ciprofloxacin HCl Allergy Swelling Verified 04/29/23 02:51 [From Cipro] morphine AdvReac Inflammation Verified 04/29/23 02:51 of vein Family History Mother Diabetes Father Brain cancer Sister Cancer of kidney GERD (gastroesophageal reflux disease) Sister Atrial septal defect GERD (gastroesophageal reflux disease) Brother Atrial septal defect Surgical History H/O total hysterectomy History of cholecystectomy History of esophagogastroduodenoscopy (EGD) History of hip surgery Hx of colonoscopy Hx of discectomy Social History Smoking Status: Former smoker ROS ROS Narrative Complaining of diarrhea. Some abdominal pain but more back pain. No shortness of breath. No chest pain. No skin changes including jaundice. All review of systems were negative except as mentioned above in the history of present illness and the other review of systems. Vital Signs Vital Signs Vital Signs: 04/29/23 02:48 04/29/23 03:03 04/29/23 03:03 Temperature 36.8 C Temperature Source Temporal Pulse Rate 135 H 126 H Respiratory Rate 18 20 H Respiratory Effort Normal Non-Labored Respiratory Pattern Normal Blood Pressure 95/44 L 90/61 Blood Pressure Mean 61 70 Pulse Ox 93 91 Oxygen Delivery Method Room Air Room Air 04/29/23 03:28 04/29/23 04:12 04/29/23 05:47 Temperature 36.8 C 36.7 C 37.2 C Temperature Source Oral Oral Oral Pulse Rate 113 H 112 H Respiratory Rate 24 H 18 Respiratory Effort Respiratory Pattern Blood Pressure 101/54 L 92/59 L Blood Pressure Mean 69 70 Pulse Ox 92 92 Oxygen Delivery Method Room Air Room Air Weight Weight: 47.5 kg Body Mass Index (BMI) 20.4 Physical Exam Const alert, oriented x3 and no apparent distress Constitutional Narrative: Appears fatigued. Nontoxic. Sallow. General Appearance: cooperative and uncooperative HEENT normocephalic and head/scalp atraumatic Eyes Eyes Narrative: No icterus Resp normal respiratory effort, no retractions, no use of accessory muscles and clear to auscultation bilaterally Cardio regular rate, regular rhythm, S1 normal heart sound and S2 normal heart sound GI normal to inspection, nondistended, normoactive bowel sounds, soft to palpation and non-distended GI Narrative: Epigastric abdominal pain. No rebound. Did have some right CVA tenderness. Extremity normal to inspection and full ROM Neuro moves all extremities Sensorium / Orientation: awake Psych Psych Narrative: Flat affect. Results Lab / Micro Data Attestation: I reviewed the patient's lab results. 04/29/23 03:00 04/29/23 03:00 Labs: Laboratory Results - last 24 hr 04/29/23 03:00: WBC 10.4, RBC 4.33, Hgb 13.4, Hct 41.7, MCV 96.3, MCH 30.9, MCHC 32.1, RDW Std Deviation 49.1 H, RDW Coeff of Omer 13.7, Plt Count 215, MPV 10.0, Immature Gran % (Auto) 0.600, Neut % (Auto) 92.1 H, Lymph % (Auto) 5.1 L, [place] % (Auto) 1.3, Eos % (Auto) 0.2, Baso % (Auto) 0.7, Absolute Neuts (auto) 9.6 H, Absolute Lymphs (auto) 0.53 L, Nucleated RBC % 0, Differential Comment SCANNED, Sodium 137, Potassium 3.5, Chloride 103, Carbon Dioxide 24.0, Anion Gap 10, BUN 19 H, Creatinine 1.45 H, Estim Creat Clear Calc 24.82, Est GFR (MDRD) Af Amer 46 L, Est GFR (MDRD) Non-Af 38 L, BUN/Creatinine Ratio 13.1, Glucose 203 H, Calcium 9.2, Total Bilirubin 1.20 H, Direct Bilirubin 0.54 H, AST 89 H, ALT 88 H, Alkaline Phosphatase 129 H, Total Protein 7.3, Albumin 3.4, Globulin 3.9, Lipase 66 04/29/23 04:54: Urine Color Yellow, Urine Clarity Clear, Urine pH 7.0, Ur Specific [place] 1.010, Urine Protein Negative, Urine Glucose (UA) Normal, Urine Ketones Negative, Urine Occult Blood 25 H, Urine Nitrite Negative, Urine Bilirubin Negative, Urine Urobilinogen Normal, Ur Leukocyte Esterase Negative, Urine RBC 0 SEEN, Urine WBC 0 SEEN, Ur Squamous Epith Cells 0 SEEN, Urine Bacteria 0 SEEN, Urine Mucus 0 SEEN 04/29/23 05:40: Lactic Acid 2.0 Micro: Microbiology 04/29/23 03:21 Nasal Secretion SARS-CoV-2 & FLU Antigen (Rapid) - Final Imagaing Radiology Impression Abdomen/Pelvis CT 04/29/23 03:18 IMPRESSION: 1. Finding suggests early hepatic abscess. 2. Possible sequela of infectious or inflammatory enteritis. Electronically Signed: Zee Gatica MD at 4:52 EST , Chest X-Ray 04/29/23 04:35 IMPRESSION: No radiographic evidence of acute cardiopulmonary disease. Electronically Signed: Zee Gatica MD at 5:28 EST , Assessment & Plan Assessment/Plan (1) Sepsis: QUALIFIERS: Sepsis type: sepsis due to unspecified organism Sepsis acute organ dysfunction status: with acute organ dysfunction Severe sepsis acute organ dysfunction type: acute renal failure Acute renal failure type: unspecified Severe sepsis shock status: without septic shock Qualified Code(s): A41.9 - Sepsis, unspecified organism; R65.20 - Severe sepsis without septic shock; N17.9 - Acute kidney failure, unspecified PLAN: Present on admission: qSOFA of 2 on admission with a respiratory rate greater than 22 and a systolic blood pressure less than 100. SIRS 2 out of 4. I suspect due to what may be a hepatic abscess Patient received piperacillin/tazobactam in emergency room, will continue on the floor. Blood cultures drawn in the emergency room and currently pending. Patient received 2 L of IV fluid already in the emergency room. Will continue with IV fluids. (2) Abscess of liver: PLAN: Suspected though not confirmed at this time. Gastroenterology will be on consultation. Notified by the emergency room. Antibiotics as above. Patient did have an ERCP performed on the . Unclear if there is any direct correlation with that. (3) NORY (acute kidney injury): PLAN: Baseline creatinine around 0.9. Creatinine greater than 1.4. IV fluids and monitor. PLAN: Plan Chronic conditions * Hypothyroidism: Continue levothyroxine * Recent choledocholithiasis: Status post ERCP on the with removal of stone and sphincterotomy. Patient is status postcholecystectomy. * Hyperlipidemia: Hold statins for now. * GERD: Continue PPI. VTE prophylaxis: Moderate risk. SCDs for now. Chemical prophylaxis Case surgery or intervention will be necessary. CODE STATUS: Addressed with patient. Patient was to be full code. Charges/Coding Visit Charges Inpatient E&M: 33774 Init Hosp L3
[2023-04-29] MEDS: 0.9% Normal Saline (1000mL) 1,000 ML 150 ML IV ×2 (07:05→14:14)
[2023-04-29 09:43] LABS: Reflex Lactate? Y
[2023-04-29] MEDS: Pantoprazole Sodium 40 MG Tablet PO ×2 (10:11→20:57)
[2023-04-29] MEDS: Levothyroxine 75 MCG Tablet PO (10:12)
[2023-04-29] MEDS: Cholecalciferol (VIT D3) 25 MCG TABLET (1,000 UNITS) 50 MCG PO (10:12)
[2023-04-29] MEDS: Acetaminophen 325 MG Tablet 650 MG PO (10:18)
--- NOTE | 2023-04-29 10:50 | CASEMGMT ---
RN HIRAM Face to Face with patient for initial transition planning/care coordination assessment. RN CM introduced self and role at [facility]. Patient lying in bed, alert and oriented, at beside. Patient willing to participate in assessment and is able to answer all questions appropriately. Care providers, pharmacy, and demographics verified. Patient wishes to discharge home, denies need for home health at this time. Patient states she has no further needs or concerns at this time. CM to follow for discharge planning needs that may arise. PCP: Tyrel Specialists: Friend, GI Preferred Pharmacy: [facility] Insurance: [employer] [facility] Prescription Benefit: yes Living Will/HPOA: none LNOK: Living Arrangements: Patient lives with in a 2 story home with bed and bath on first floor, 3 steps and railing to enter the home. Patient states she is independent at home. Transportation: self, DME/HHC: Patient denies DME in the home. No previous HHC or SNF. Disposition Plan: Patient to discharge home with family support and follow-up plans in place. Keri ECHOLS, RN, CM
--- NOTE | 2023-04-29 13:08 | PN_ITS ---
Subjective Subjective Patient seen and examined. She had no active complaints. She denied any nausea, vomiting, fever, chills or any other symptoms. Review of systems is otherwise negative. Objective Data Objective Data Vital Signs: Vital Signs Temp Pulse Resp BP Pulse Ox O2 Del Method O2 Flow Rate 98.8 F 82 16 97/59 L 100 Nasal Cannula 2 04/29/23 10:07 04/29/23 10:07 04/29/23 10:07 04/29/23 10:07 04/29/23 10:07 04/29/23 10:07 04/29/23 10:07 Oxygen Flow Rate (L/min) 2 Oxygen Delivery Method Nasal Cannula Weight: 110 lb 3.698 oz Body Mass Index (BMI) 18.9 Intake & Output: Intake and Output for Last 24 Hours 04/27/23 04/28/23 04/29/23 23:59 23:59 23:59 Intake Total 3100 / 3100 Output Total 325 / 325 Balance 2775 / 2775 Lab / Micro Data 04/29/23 03:00 04/29/23 03:00 Labs: Laboratory Results - last 24 hr 04/29/23 03:00: WBC 10.4, RBC 4.33, Hgb 13.4, Hct 41.7, MCV 96.3, MCH 30.9, MCHC 32.1, RDW Std Deviation 49.1 H, RDW Coeff of Omer 13.7, Plt Count 215, MPV 10.0, Immature Gran % (Auto) 0.600, Neut % (Auto) 92.1 H, Lymph % (Auto) 5.1 L, [place] % (Auto) 1.3, Eos % (Auto) 0.2, Baso % (Auto) 0.7, Absolute Neuts (auto) 9.6 H, Absolute Lymphs (auto) 0.53 L, Nucleated RBC % 0, Differential Comment SCANNED, Sodium 137, Potassium 3.5, Chloride 103, Carbon Dioxide 24.0, Anion Gap 10, BUN 19 H, Creatinine 1.45 H, Estim Creat Clear Calc 24.82, Est GFR (MDRD) Af Amer 46 L, Est GFR (MDRD) Non-Af 38 L, BUN/Creatinine Ratio 13.1, Glucose 203 H, Calcium 9.2, Total Bilirubin 1.20 H, Direct Bilirubin 0.54 H, AST 89 H, ALT 88 H, Alkaline Phosphatase 129 H, Total Protein 7.3, Albumin 3.4, Globulin 3.9, Lipase 66 04/29/23 04:54: Urine Color Yellow, Urine Clarity Clear, Urine pH 7.0, Ur Specific [place] 1.010, Urine Protein Negative, Urine Glucose (UA) Normal, Urine Ketones Negative, Urine Occult Blood 25 H, Urine Nitrite Negative, Urine Bilirubin Negative, Urine Urobilinogen Normal, Ur Leukocyte Esterase Negative, Urine RBC 0 SEEN, Urine WBC 0 SEEN, Ur Squamous Epith Cells 0 SEEN, Urine Bacteria 0 SEEN, Urine Mucus 0 SEEN 04/29/23 05:40: Lactic Acid 2.0 04/29/23 10:05: Lactic Acid 2.0 Micro: Microbiology 04/29/23 03:21 Nasal Secretion SARS-CoV-2 & FLU Antigen (Rapid) - Final Radiography Diagnostic Testing: Radiology Impression Abdomen/Pelvis CT 04/29/23 03:18 IMPRESSION: 1. Finding suggests early hepatic abscess. 2. Possible sequela of infectious or inflammatory enteritis. Electronically Signed: Zee Gatica MD at 4:52 EST Reading Location ID and State: [address] [place] [address] , Service support , Chest X-Ray 04/29/23 04:35 IMPRESSION: No radiographic evidence of acute cardiopulmonary disease. Electronically Signed: Zee Gatica MD at 5:28 EST Reading Location ID and State: [facility] , Service support , Physical Exam Const alert, oriented x3 and no apparent distress Constitutional Narrative: frail, weak HEENT normocephalic and head/scalp atraumatic Mouth: dry mucous membranes Eyes PERRL and EOMs intact bilaterally Neck no lymphadenopathy and supple Lymph Lymphatic: no lymphadenopathy noted and no lymphedema noted Resp normal respiratory effort, normal air movement and clear to auscultation bilaterally Cardio regular rate, regular rhythm, S1 normal heart sound, S2 normal heart sound and no murmurs GI normal to inspection, nondistended, normoactive bowel sounds, soft to palpation, non-tender and non-distended Extremity normal capillary refill, no clubbing, cyanosis or edema and no calf tenderness General Extremity: no tenderness to palpation of joints or extremities Skin General Skin Exam: no breakdown Neuro CN's II-XII intact bilaterally, no focal motor deficits, no sensory deficits noted and deep tendon reflexes 2+ bilaterally Motor Exam: strength 5/5 throughout Psych thought process normal and cooperative Appearance: appropriate Assessment & Plan Assessment/Plan (1) NORY (acute kidney injury): (2) Sepsis: QUALIFIERS: Sepsis type: sepsis due to unspecified organism Sepsis acute organ dysfunction status: with acute organ dysfunction Severe sepsis acute organ dysfunction type: acute renal failure Acute renal failure type: unspecified Severe sepsis shock status: without septic shock Qualified Code(s): A41.9 - Sepsis, unspecified organism; R65.20 - Severe sepsis without septic shock; N17.9 - Acute kidney failure, unspecified PLAN: Plan #Sepsis due to probable hepatic abscess * feels better now. Was admitted in the early hours of this morning * on IV zosyn * blood cultures ordered and pending * being hydrated gently with iVF * CT of the abdomen and pelvis showed findings suggestive of early hepatic abscess and possible sequelae of infectious or inflammatory enteritis * recently had choledocholithiasis and had ERCP with removal of stent * Gi consulted. Await rec;s * #NORY: Cr is elevated at 1.45. hydrate with IVF and trend #Hypothyroidism:on synthroid #Hyperlipidemia: statins on hold #GERD: on PPI DVT prophylaxis: SCDs Charges/Coding Visit Charges Inpatient E&M: 90578 Subs Hosp L2
[2023-04-29] MEDS: Piperacil/Tazobactam 3.375 GM in 0.9% Normal Saline (50mL MB+) 50 ML IV ×2 (14:29→20:57)
[2023-04-29] MEDS: proCHLORPERazine 10 MG/2 ML Vial 5 MG IV ×2 (14:29→18:46)
[2023-04-29] MEDS: 0.9% Saline Lock 10 ML Syringe IV ×2 (14:29→18:46)
--- NOTE | 2023-04-29 16:48 | CON.PCM.GI_ITS ---
HPI Consult Data Date of Consult: 04/29/23 HPI Narrative Reason for Consultation: Abnormal CT scan HPI Narrative: ALIX AVILA, is a 73 F who presents with dizziness. Yesterday, patient was experiencing chills and malaise. Tonight, patient started experiencing dizziness when she stood up. Was concerned and presented to the hospital. She underwent a CAT scan of her abdomen pelvis that was concerning for developing early hepatic abscess. GI established 5.25.23 epigastric/chest pain extending into her back occurring weekly or less with intermittent episodes of N/V every couple of months. Reflux is also a difficulty but overall well managed with pantoprazole 40mg BID (for 5- 10 years, no kidney disease admits to some bone loss). Last colonoscopy has been many years but does Cologuard regularly with negative results each time. MRCP 6.7.23 intrahepatic bile ducts dilate, left>right; CBD dilated 10.8mm; CBD dilated 13.5cm up to ampulla; pancreatic duct dilated 2.4mm; no filling defects of biliary stephen GET 6.16.23 32.73 minutes HIDA 6.19.23 WNL ERCP and EGD .. EGD without visual abnormality ERCP single lower MBD stricture; choledocholithiasis; biliary sphincterotomy/sweep performed with stent placed in CBD. Malignancy neg [facility] hospitalization 8.-8.31.23 for management of post-procedure pancreatitis CT abd/pel CBD stent and secondary pneumobilia; duodenal inflammatory changes. [facility] hospitalization 9..-9..23 for management of recurrent pancreatitis. CT abd/pel pancreatic stranding with fluid collection with largest measuring 2.8x1.5cm, pancreatitis; colonic diverticulosis OV .. upper abdominal discomfort which extends into her back with chest/epigastric burning that is present at all times and loose stools twice a day. CT 04.28.23 CT scan abdomen pelvis that show a possible early abscess in the right hepatic lobe. Also she has a no specific choledocholithiasis. [facility] Medical History Anisometropia Anxiety Arthralgia Arthritis Bloating COPD (chronic obstructive pulmonary disease) Elevated alkaline phosphatase level Elevated lipase Former smoker Functional intestinal disorder, unspecified GERD (gastroesophageal reflux disease) Hiatal hernia History of echocardiogram History of edema History of pain when walking History of stress test HLD (hyperlipidemia) Hypothyroidism Kidney stones Leg cramps Osteoporosis Post-menopausal Vitamin D deficiency Wears hearing aid Wears partial dentures Home Medications levothyroxine 75 mcg tablet 75 mcg PO DAILY 11/15/14 [History Last Taken Unknown] rosuvastatin 10 mg tablet 10 mg PO QODAY 03/26/17 [History Last Taken 04/28/23] cholecalciferol (vitamin D3) 50 mcg (2,000 unit) capsule 50 mcg PO DAILY 08/10/22 [History Last Taken Unknown] coenzyme Q10 100 mg capsule (Co Q-10) 100 mg PO DAILY heart health 01/26/23 [History Last Taken Unknown] pantoprazole 40 mg tablet,delayed release 40 mg PO BID #60 tabs 02/26/23 [Rx Last Taken Unknown] Allergy/AdvReac Type Severity Reaction Status Date / Time Sulfa (Sulfonamide Allergy Intermediate Rash Verified 04/29/23 02:51 Antibiotics) ciprofloxacin [From Cipro] Allergy Swelling Verified 04/29/23 02:51 ciprofloxacin HCl Allergy Swelling Verified 04/29/23 02:51 [From Cipro] morphine AdvReac Inflammation Verified 04/29/23 02:51 of vein Family History Mother Diabetes Father Brain cancer Sister Cancer of kidney GERD (gastroesophageal reflux disease) Sister Atrial septal defect GERD (gastroesophageal reflux disease) Brother Atrial septal defect Surgical History H/O total hysterectomy History of cholecystectomy History of esophagogastroduodenoscopy (EGD) History of hip surgery Hx of colonoscopy Hx of discectomy Social History Smoking Status: Former smoker Lab / Micro Data 04/29/23 03:00 04/29/23 03:00 Labs: Laboratory Results - last 24 hr 04/29/23 03:00: WBC 10.4, RBC 4.33, Hgb 13.4, Hct 41.7, MCV 96.3, MCH 30.9, MCHC 32.1, RDW Std Deviation 49.1 H, RDW Coeff of Omer 13.7, Plt Count 215, MPV 10.0, Immature Gran % (Auto) 0.600, Neut % (Auto) 92.1 H, Lymph % (Auto) 5.1 L, [place] % (Auto) 1.3, Eos % (Auto) 0.2, Baso % (Auto) 0.7, Absolute Neuts (auto) 9.6 H, Absolute Lymphs (auto) 0.53 L, Nucleated RBC % 0, Differential Comment SCANNED, Sodium 137, Potassium 3.5, Chloride 103, Carbon Dioxide 24.0, Anion Gap 10, BUN 19 H, Creatinine 1.45 H, Estim Creat Clear Calc 24.82, Est GFR (MDRD) Af Amer 46 L, Est GFR (MDRD) Non-Af 38 L, BUN/Creatinine Ratio 13.1, Glucose 203 H, Calcium 9.2, Total Bilirubin 1.20 H, Direct Bilirubin 0.54 H, AST 89 H, ALT 88 H, Alkaline Phosphatase 129 H, Total Protein 7.3, Albumin 3.4, Globulin 3.9, Lipase 66 04/29/23 04:54: Urine Color Yellow, Urine Clarity Clear, Urine pH 7.0, Ur Specific [place] 1.010, Urine Protein Negative, Urine Glucose (UA) Normal, Urine Ketones Negative, Urine Occult Blood 25 H, Urine Nitrite Negative, Urine Bilirubin Negative, Urine Urobilinogen Normal, Ur Leukocyte Esterase Negative, Urine RBC 0 SEEN, Urine WBC 0 SEEN, Ur Squamous Epith Cells 0 SEEN, Urine Bacteria 0 SEEN, Urine Mucus 0 SEEN 04/29/23 05:40: Lactic Acid 2.0 04/29/23 10:05: Lactic Acid 2.0 Micro: Microbiology 04/29/23 03:21 Nasal Secretion SARS-CoV-2 & FLU Antigen (Rapid) - Final Imagaing Radiology Impression Abdomen/Pelvis CT 04/29/23 03:18 IMPRESSION: 1. Finding suggests early hepatic abscess. 2. Possible sequela of infectious or inflammatory enteritis. Electronically Signed: Zee Gatica MD at 4:52 EST Reading Location ID and State: [address] [place] [address] , Service support , Chest X-Ray 04/29/23 04:35 IMPRESSION: No radiographic evidence of acute cardiopulmonary disease. Electronically Signed: Zee Gatica MD at 5:28 EST ,
[2023-04-30] VITALS (7 sets, daily range): BP systolic 103–119; BP diastolic 65–74; PULSE 74–86; RESP 16–18; TEMP 36.4–36.6; O2SAT 96–99
[2023-04-30] MEDS: proCHLORPERazine 10 MG/2 ML Vial 5 MG IV (01:27)
[2023-04-30] MEDS: Acetaminophen 325 MG Tablet 650 MG PO ×2 (01:32→10:09)
[2023-04-30] MEDS: Piperacil/Tazobactam 3.375 GM in 0.9% Normal Saline (50mL MB+) 50 ML IV ×3 (05:08→21:20)
[2023-04-30] MEDS: 0.9% Normal Saline (1000mL) 1,000 ML 150 ML IV (05:08)
[2023-04-30] MEDS: Levothyroxine 75 MCG Tablet PO (05:12)
[2023-04-30 05:45] LABS: Absolute Lymphocyte Count 1.67 X10^3/uL (0.83-4.51); Absolute Neutrophil Count 8.9 X10^3/uL (2.0-7.7); Basophil# 0.03 X10^3/uL; Basophil% 0.3 % (0-1); Eosinophil# 0.06 X10^3/uL; Eosinophils% 0.5 % (0-5); Hematocrit 32.8 % (37-47); Lymphocyte # 1.67 X10^3/ul (0.83-4.51); Lymphocyte % 14.3 % (19-41); Mean Corp Hgb Conc 30.5 g/dL (32-36); Mean Corpuscular Hgb 30.7 pg (27.0-32.0); Mean Corpuscular Volume 100.6 fL (81-99); Monocyte# 1.01 X10^3/uL; Monocyte% 8.6 % (0-10); NRBC Flagged by Analyzer 0 % (0-5); Neutrophil # 8.85 X10^3/uL (2.7-7.7); Neutrophil % 75.7 % (47-70); Platelet Count 127 K/mm3 (150-450); RBC Distribution Width CV 14.2 % (11.6-14.6); Red Blood Count 3.26 M/mm3 (4.2-5.4); White Blood Count 11.7 K/mm3 (4.4-11.0)
[2023-04-30 06:16] LABS: ALB/GLOB Ratio 0.8 RATIO (0.9-2.4); AST(SGOT) 34 U/L (15-37); Alanine Aminotransfer ALT/SGPT 43 U/L (13-56); Albumin, Serum 2.3 g/dL (3.2-5.0); Alkaline Phosphatase 72 U/L (45-117); Anion Gap 6 (5-15); BUN 12 mg/dL (7-18); BUN/Creat Ratio 17.2 RATIO (10-20); Calcium,Total 7.9 mg/dL (8.5-10.1); Chloride 114 mmol/L (98-107); EST Glomerular Filtration Rate 88 mL/min (>60); Est Glom Filt Rate - Afr Amer 106 mL/min (>60); Estimated Creatinine Clearance 39.55 ml/min; Globulin 2.8 g/dL (2.2-4.2); Glucose 78 mg/dL (74-106); Potassium 3.6 mmol/L (3.5-5.1); Protein, Total 5.1 g/dL (6.4-8.2); Sodium Level 142 mmol/L (136-145)
[2023-04-30] MEDS: Pantoprazole Sodium 40 MG Tablet PO ×2 (10:04→21:20)
[2023-04-30] MEDS: Cholecalciferol (VIT D3) 25 MCG TABLET (1,000 UNITS) 50 MCG PO (10:04)
--- NOTE | 2023-04-30 11:07 | PN_ITS ---
Subjective Subjective Patient seen and examined. Her brother in law was by her bedside. She feels much better and has no active complaints. Review of systems is otherwise negative. Objective Data Objective Data Vital Signs: Vital Signs Temp Pulse Resp BP Pulse Ox O2 Del Method O2 Flow Rate 97.9 F 80 18 103/66 99 Nasal Cannula 2 04/30/23 09:39 04/30/23 09:39 04/30/23 09:39 04/30/23 09:39 04/30/23 09:39 04/30/23 10:00 04/30/23 10:00 Oxygen Flow Rate (L/min) 2 Oxygen Delivery Method Nasal Cannula Weight: 110 lb 3.698 oz Body Mass Index (BMI) 18.9 Intake & Output: Intake and Output for Last 24 Hours 04/28/23 04/29/23 04/30/23 23:59 23:59 23:59 Intake Total 4150 / 4390 1580 / 1580 Output Total 325 / 325 300 / 300 Balance 3825 / 4065 1280 / 1280 Lab / Micro Data 04/30/23 05:25 04/30/23 05:25 Labs: Laboratory Results - last 24 hr 04/29/23 10:05: Lactic Acid 2.0 04/30/23 05:25: WBC 11.7 H, RBC 3.26 L, Hgb 10.0 L, Hct 32.8 L, MCV 100.6 H, MCH 30.7, MCHC 30.5 L, RDW Std Deviation 53.0 H, RDW Coeff of Omer 14.2, Plt Count 127 L, MPV 10.0, Immature Gran % (Auto) 0.600, Neut % (Auto) 75.7 H, Lymph % (Auto) 14.3 L, [place] % (Auto) 8.6, Eos % (Auto) 0.5, Baso % (Auto) 0.3, Absolute Neuts (auto) 8.9 H, Absolute Lymphs (auto) 1.67, Nucleated RBC % 0, Sodium 142, Potassium 3.6, Chloride 114 H, Carbon Dioxide 22.0, Anion Gap 6, BUN 12, Creatinine 0.70, Estim Creat Clear Calc 39.55, Est GFR (MDRD) Af Amer 106, Est GFR (MDRD) Non-Af 88, BUN/Creatinine Ratio 17.2, Glucose 78, Calcium 7.9 L, Total Bilirubin 0.60, AST 34, ALT 43, Alkaline Phosphatase 72, Total Protein 5.1 L, Albumin 2.3 L, Globulin 2.8, Albumin/Globulin Ratio 0.8 L Micro: Microbiology 04/29/23 03:21 Nasal Secretion SARS-CoV-2 & FLU Antigen (Rapid) - Final Physical Exam Const alert, oriented x3 and no apparent distress Constitutional Narrative: frail, weak General Appearance: cooperative HEENT normocephalic and head/scalp atraumatic Eyes PERRL and EOMs intact bilaterally Eyes Narrative: No icterus Neck no lymphadenopathy and supple Lymph Lymphatic: no lymphadenopathy noted and no lymphedema noted Resp normal respiratory effort, normal air movement, no retractions, no use of accessory muscles and clear to auscultation bilaterally Cardio regular rate, regular rhythm, S1 normal heart sound, S2 normal heart sound and no murmurs GI normal to inspection, nondistended, normoactive bowel sounds, soft to palpation, non-tender and non-distended Extremity normal to inspection, full ROM, normal capillary refill, no clubbing, cyanosis or edema and no calf tenderness General Extremity: no tenderness to palpation of joints or extremities Skin General Skin Exam: no breakdown Neuro CN's II-XII intact bilaterally, moves all extremities, no focal motor deficits, no sensory deficits noted and deep tendon reflexes 2+ bilaterally Sensorium / Orientation: awake Motor Exam: strength 5/5 throughout Psych thought process normal and cooperative Psych Narrative: Flat affect. Appearance: appropriate Assessment & Plan Assessment/Plan (1) NORY (acute kidney injury): (2) Sepsis: QUALIFIERS: Sepsis type: sepsis due to unspecified organism Sepsis acute organ dysfunction status: with acute organ dysfunction Severe sepsis acute organ dysfunction type: acute renal failure Acute renal failure type: unspecified Severe sepsis shock status: without septic shock Qualified Code(s): A41.9 - Sepsis, unspecified organism; R65.20 - Severe sepsis without septic shock; N17.9 - Acute kidney failure, unspecified PLAN: Plan #Sepsis due to probable hepatic abscess * feels better now. Was admitted in the early hours of this morning * on IV zosyn * blood cultures ordered and pending * CT of the abdomen and pelvis showed findings suggestive of early hepatic abscess and possible sequelae of infectious or inflammatory enteritis * recently had choledocholithiasis and had ERCP with removal of stent * GI on board and recommends conservative management for now * #NORY: resolved. Cr is down to 0.7 #Hypothyroidism:on synthroid #Hyperlipidemia: statins on hold #GERD: on PPI DVT prophylaxis: SCDs Charges/Coding Visit Charges Inpatient E&M: 35346 Subs Hosp L2
--- NOTE | 2023-04-30 17:31 | PN.GI_ITS ---
Subjective Subjective Patient is doing a lot better today. She has been afebrile. She has not been tachycardic and her blood pressure has improved. She is doing well on IV antibiotics. Her diet has been advanced to regular diet. Objective Data Objective Data Vital Signs: Vital Signs Temp Pulse Resp BP Pulse Ox O2 Del Method O2 Flow Rate 97.9 F 80 18 103/66 97 Room Air 2 04/30/23 09:39 04/30/23 09:39 04/30/23 09:39 04/30/23 09:39 04/30/23 14:00 04/30/23 14:00 04/30/23 10:00 Oxygen Flow Rate (L/min) 2 Oxygen Delivery Method Room Air Weight: 110 lb 3.698 oz Body Mass Index (BMI) 18.9 Intake & Output: Intake and Output for Last 24 Hours 04/28/23 04/29/23 04/30/23 23:59 23:59 23:59 Intake Total 4150 / 4390 3040 / 3040 Output Total 325 / 325 550 / 550 Balance 3825 / 4065 2490 / 2490 Lab / Micro Data 04/30/23 05:25 04/30/23 05:25 Labs: Laboratory Results - last 24 hr 04/30/23 05:25: WBC 11.7 H, RBC 3.26 L, Hgb 10.0 L, Hct 32.8 L, MCV 100.6 H, MCH 30.7, MCHC 30.5 L, RDW Std Deviation 53.0 H, RDW Coeff of Omer 14.2, Plt Count 127 L, MPV 10.0, Immature Gran % (Auto) 0.600, Neut % (Auto) 75.7 H, Lymph % (Auto) 14.3 L, [place] % (Auto) 8.6, Eos % (Auto) 0.5, Baso % (Auto) 0.3, Absolute Neuts (auto) 8.9 H, Absolute Lymphs (auto) 1.67, Nucleated RBC % 0, Sodium 142, Potassium 3.6, Chloride 114 H, Carbon Dioxide 22.0, Anion Gap 6, BUN 12, Creati nine 0.70, Estim Creat Clear Calc 39.55, Est GFR (MDRD) Af Amer 106, Est GFR (MDRD) Non-Af 88, BUN/Creatinine Ratio 17.2, Glucose 78, Calcium 7.9 L, Total Bilirubin 0.60, AST 34, ALT 43, Alkaline Phosphatase 72, Total Protein 5.1 L, Albumin 2.3 L, Globulin 2.8, Albumin/Globulin Ratio 0.8 L Micro: Microbiology 04/29/23 03:21 Nasal Secretion SARS-CoV-2 & FLU Antigen (Rapid) - Final Physical Exam Const alert, oriented x3 and no apparent distress Constitutional Narrative: Appears fatigued. Nontoxic. Sallow. General Appearance: cooperative and uncooperative HEENT normocephalic and head/scalp atraumatic Eyes Eyes Narrative: No icterus Resp normal respiratory effort, no retractions, no use of accessory muscles and clear to auscultation bilaterally Cardio regular rate, regular rhythm, S1 normal heart sound and S2 normal heart sound GI normal to inspection, nondistended, normoactive bowel sounds, soft to palpation and non-distended GI Narrative: Epigastric abdominal pain. No rebound. Did have some right CVA tenderness. Extremity normal to inspection and full ROM Neuro moves all extremities Sensorium / Orientation: awake Psych Psych Narrative: Flat affect. Assessment & Plan Assessment/Plan (1) Sepsis: QUALIFIERS: Sepsis type: sepsis due to unspecified organism Sepsis acute organ dysfunction status: with acute organ dysfunction Severe sepsis acute organ dysfunction type: acute renal failure Acute renal failure type: unspecified Severe sepsis shock status: without septic shock Qualified Code(s): A41.9 - Sepsis, unspecified organism; R65.20 - Severe sepsis without se ptic shock; N17.9 - Acute kidney failure, unspecified PLAN: Present on admission: qSOFA of 2 on admission with a respiratory rate greater than 22 and a systolic blood pressure less than 100. SIRS 2 out of 4. I suspect due to what may be a hepatic abscess Patient received piperacillin/tazobactam in emergency room, will continue on the floor. Blood cultures drawn in the emergency room and currently pending. Patient received 2 L of IV fluid already in the emergency room. Will continue with IV fluids. (2) Abscess of liver: PLAN: I am not sure if she related abscess and liver more than just retained contrast. Her LFTs have improved as has her pain with IV fluids and antibiotics. So I suspect that this is more contained IV contrast after the procedure than anything else. (3) NORY (acute kidney injury): PLAN: Baseline creatinine around 0.9. Creatinine greater than 1.4. IV fluids and monitor. PLAN: Plan Continue to advance diet. Charges/Coding Visit Charges Inpatient E&M: 41201 Subs Hosp L3
[2023-04-30] MEDS: MELATONIN 3 MG TABLET PO (21:20)
[2023-05-01 03:00] VITALS: BP 113/64; PULSE 64; RESP 14; TEMP 36.9; O2SAT 94
[2023-05-01 03:59] VITALS: BP 113/64; PULSE 64; RESP 14; TEMP 36.9; O2SAT 94
[2023-05-01] MEDS: Levothyroxine 75 MCG Tablet PO (05:30)
[2023-05-01] MEDS: Piperacil/Tazobactam 3.375 GM in 0.9% Normal Saline (50mL MB+) 50 ML IV (05:30)
[2023-05-01 10:14] VITALS: BP 112/74; PULSE 62; RESP 16; TEMP 36.7; O2SAT 94
[2023-05-01] MEDS: Pantoprazole Sodium 40 MG Tablet PO (10:16)
[2023-05-01] MEDS: Cholecalciferol (VIT D3) 25 MCG TABLET (1,000 UNITS) 50 MCG PO (10:16)
--- NOTE | 2023-05-01 11:32 | DCINST_ITS ---
Discharge Instructions Diet Discharge Diet: Low fat / Low cholesterol Activity Discharge Activity: Return to Normal Activity Weight Bearing Status: Weight bearing as tolerated Dressing / Incision Call your doctor if you observe: Fever of 101 or Higher, Shortness of breath, Dizziness, Swelling in the ankles and Chest pain Follow Up Care Test Results: Test results from this visit will be discussed in further detail at your follow- up appointment, if applicable. Discharge Plan Admission Admit Date/Time: 04/29/23 06:10 Primary Reason for Your Visit: hepatic abscess Attending Provider: Justyna Maloney Primary Care Provider: Adriane Sarah Consulting Providers: Carlos Acuña Instructions Patient Instructions: Understanding Liver Abscess Discharge Orders/Prescriptions Prescriptions: New metronidazole 500 mg tablet 500 mg PO Q8H Qty: 30 0RF cefdinir 300 mg capsule 300 mg PO BID Qty: 20 0RF Continued cholecalciferol (vitamin D3) 50 mcg (2,000 unit) capsule 50 mcg PO DAILY pantoprazole 40 mg tablet,delayed release (DR/EC) 40 mg PO BID Qty: 60 3RF levothyroxine 75 MCG tablet 75 mcg PO DAILY Patient Comments: THYROID rosuvastatin 10 MG tablet 10 mg PO QODAY Patient Comments: CHOLESTEROL coenzyme Q10 [Co Q-10] 100 mg capsule 100 mg PO DAILY Referrals / Follow Up: Moses Alcocer DO [Med Staff - Active Staff] - Within 1 Week Adriane Sarah, CHIEF PSYCHOLOGIST-C [Primary Care Provider] - Within 2 Weeks Disposition Disposition (needs filled in before D/C Order can be placed): Home, Self Care
--- NOTE | 2023-05-01 11:37 | DS.PCM_ITS ---
Providers Date of Admission: 04/29/23 Date of Discharge: 05/01/23 Primary Care Physician: JASPAL Del Cid Consultations 04/29/23 06:52 Consult: Gastroenterology Routine Consulting Provider: Deana Gastroenterology Reason for Consult: hepatic abscess EMERGENT Consult: No MD Notified: Yes Date Notified: 04/29/23 Time Notified: 06:26 Method of Notification: ED Physician Initiated Reason For Visit: SEPSIS,HEPATIC ABSCESS Diagnosis Discharge Diagnosis (1) Sepsis: Status: Acute Code(s): A41.9 - Sepsis, unspecified organism Qualifiers: Acute renal failure type: unspecified Sepsis acute organ dysfunction status: with acute organ dysfunction Sepsis type: sepsis due to unspecified organism Severe sepsis acute organ dysfunction type: acute renal failure Severe sepsis shock status: without septic shock Qualified Code(s): A41.9 - Sepsis, unspecified organism; R65.20 - Severe sepsis without septic shock; N17.9 - Acute kidney failure, unspecified (2) Abscess of liver: Status: Acute Code(s): K75.0 - Abscess of liver (3) NORY (acute kidney injury): Status: Acute Code(s): N17.9 - Acute kidney failure, unspecified Plan #Sepsis due to probable hepatic abscess * feels better now. Was admitted in the early hours of this morning * on IV zosyn * blood cultures ordered and pending * CT of the abdomen and pelvis showed findings suggestive of early hepatic abscess and possible sequelae of infectious or inflammatory enteritis * recently had choledocholithiasis and had ERCP with removal of stent * GI on board and recommends conservative management for now * #NORY: resolved. Cr is down to 0.7 #Hypothyroidism:on synthroid #Hyperlipidemia: statins on hold #GERD: on PPI DVT prophylaxis: SCDs Medications at Discharge Home Medications levothyroxine 75 mcg tablet 75 mcg PO DAILY 11/15/14 rosuvastatin 10 mg tablet 10 mg PO QODAY 03/26/17 cholecalciferol (vitamin D3) 50 mcg (2,000 unit) capsule 50 mcg PO DAILY 08/10/22 coenzyme Q10 100 mg capsule (Co Q-10) 100 mg PO DAILY [facility] 01/26/23 pantoprazole 40 mg tablet,delayed release 40 mg PO BID #60 tabs 02/26/23 cefdinir 300 mg capsule 300 mg PO BID #20 caps 05/01/23 metronidazole 500 mg tablet 500 mg PO Q8H #30 tabs 05/01/23 Hospital Course Operations None Summary of Care Provided Minutes Spent on Discharge: 50 Hospital Course: Patient is a 73 y/o female with a PMH as outlined who was admitted via the ED on 04/29/2023 with a complaint of dizziness. She had had a insistence chills and malaise the day before admission. Patient had had an ERCP on April 27, 2023 on account of choledocholithiasis and not had a complete removal with biliary sphincterotomy and also had a biliary stent removed. She felt fine after the procedure but subsequently started having the above symptoms that she came into the ED. She was mildly hypotensive with systolic blood pressure in the 90s and this resolved with administration of IV fluids. CAT scan of the abdomen done was concerning for early hepatic abscess. She was therefore admitted and managed for probable hepatic abscess in light of recent ERCP and started on IV Zosyn. Gastroenterology was consulted. Gastroenterology reviewed images and thought it was more likely retained contrast. HEr liver enzymes were elevated but subsequently trended downwards. She remained stable and was discharged on 05/01/2023. She was discharged on PO metronidazole and PO cefdinir for a 10 day course. She is to follow up with his PCP within 1-2 weeks. Patient seen and examined prior to discharge. She had no active complaints and had an uneventful night. Review of systems is otherwise negative. Labs and vitals reviewed. Home medications reviewed and reconciled. P Physical Exam Const alert, oriented x3 and no apparent distress General Appearance: cooperative and comfortable HEENT normocephalic, head/scalp atraumatic and hearing grossly normal bilaterally Mouth: oral and palatal mucosa normal Eyes PERRL and EOMs intact bilaterally Eyes Narrative: No icterus Neck no lymphadenopathy and supple Lymph Lymphatic: no lymphadenopathy noted and no lymphedema noted Resp normal respiratory effort, normal air movement, no retractions, no use of accessory muscles and clear to auscultation bilaterally Cardio regular rate, regular rhythm, S1 normal heart sound, S2 normal heart sound and no murmurs GI normal to inspection, nondistended, normoactive bowel sounds, soft to palpation, non-tender and non-distended Extremity normal to inspection, full ROM, normal capillary refill, no clubbing, cyanosis or edema and no calf tenderness General Extremity: no tenderness to palpation of joints or extremities Skin no rashes or lesions noted General Skin Exam: no breakdown Neuro oriented x3, CN's II-XII intact bilaterally, moves all extremities, no focal motor deficits, no sensory deficits noted and deep tendon reflexes 2+ bilaterally Sensorium / Orientation: awake Motor Exam: strength 5/5 throughout Psych thought process normal and cooperative Psych Narrative: Flat affect. Appearance: appropriate Weight / BMI Weight Weight: 110 lb 3.698 oz Body Mass Index (BMI) 18.9 ABG / Lab / Microbiology Data 04/30/23 05:25 04/30/23 05:25 Microbiology: Microbiology 04/29/23 05:40 Blood Culture (Wb) - Right Forearm Blood Culture - Preliminary No growth in 48 hours. 04/29/23 05:40 Blood Culture (Wb) - Left Hand Blood Culture - Preliminary No growth in 48 hours. 04/29/23 03:21 Nasal Secretion SARS-CoV-2 & FLU Antigen (Rapid) - Final D/C Instructions Discharge Diet: Low fat / Low cholesterol Discharge Activity: Return to Normal Activity Weight Bearing Status: Weight bearing as tolerated Call your doctor if you observe: Fever of 101 or Higher, Shortness of breath, Dizziness, Swelling in the ankles and Chest pain Meaningful Use Info Meaningful Use Diagnoses (Choose all that apply): None applicable Discharge Plan Admission Admit Date/Time: 04/29/23 06:10 Primary Reason for Your Visit: hepatic abscess Attending Provider: Justyna Maloney Primary Care Provider: Adriane Sarah Consulting Providers: Carlos Acuña Instructions Patient Instructions: Understanding Liver Abscess Discharge Orders/Prescriptions Prescriptions: New metronidazole 500 mg tablet 500 mg PO Q8H Qty: 30 0RF cefdinir 300 mg capsule 300 mg PO BID Qty: 20 0RF Continued cholecalciferol (vitamin D3) 50 mcg (2,000 unit) capsule 50 mcg PO DAILY pantoprazole 40 mg tablet,delayed release (DR/EC) 40 mg PO BID Qty: 60 3RF levothyroxine 75 MCG tablet 75 mcg PO DAILY Patient Comments: THYROID rosuvastatin 10 MG tablet 10 mg PO QODAY Patient Comments: CHOLESTEROL coenzyme Q10 [Co Q-10] 100 mg capsule 100 mg PO DAILY Referrals / Follow Up: Moses Alcocer DO [Med Staff - Active Staff] - Within 1 Week Adriane Sarah, PROGRAM ATTENDANT-C [Primary Care Provider] - Within 2 Weeks Disposition Disposition (needs filled in before D/C Order can be placed): Home, Self Care Charges/Coding Visit Charges Inpatient E&M: 72446 Disch Hosp >30min
== END 2023-05-01 12:06 | disposition home or self-care (01) | DRG 442 ==
LOC: ED 05:44 → PCU 06:06
PROVIDERS: Emergency Provider Emergency Medicine; PCP Nurse Practitioner Family; Visit Provider Student in an Organized Health Care Education/Training Program
DX: K75.0 Abscess of liver (principal); N17.9 Acute kidney failure, unspecified; K80.51 Calculus of bile duct without cholangitis or cholecystitis with obstruction; J44.9 Chronic obstructive pulmonary disease, unspecified; E03.9 Hypothyroidism, unspecified; E86.0 Dehydration; E78.5 Hyperlipidemia, unspecified; K21.9 Gastro-esophageal reflux disease without esophagitis; E55.9 Vitamin D deficiency, unspecified; F41.9 Anxiety disorder, unspecified; K83.8 Other specified diseases of biliary tract; Z87.891 Personal history of nicotine dependence; Z79.899 Other long term (current) drug therapy
CPT/HCPCS: 36415; 71045; 74177; 74330; 76000; 80048; 80053; 80076; 81001; 83605; 83690; 85025; 87040; 87428; 88108; 88305; 88313; 93005; 99284; J7030; J7120; Q9967; A4216; J2405

== ENCOUNTER → 2023-12-08 | Outpatient (CLI) | payer MEDICARE, SELFPAY ==
--- NOTE | 2023-12-08 12:51 | BI_ITS ---
MAMMOGRAPHY - BILATERAL SCREENING REASON FOR EXAM: Female, 73 years old. Routine annual screening examination. PERTINENT HISTORY: Sister with breast cancer. TECHNIQUE: Digital bilateral breast francine (3D mammographic acquisition) in the CC and MLO projections. 2-D mediolateral oblique (MLO) and craniocaudad (CC) views of both breasts were obtained. CAD: Full Field Digital Mammography with Computer Added Detection was performed. COMPARISON: Comparison is made with prior study dated August 12, 2022. FINDINGS: Breast Composition: The breasts are heterogeneously dense, which may obscure small masses. There are no dominant masses or suspicious calcifications. Stable calcified fibroadenoma in the anterior upper retroareolar region of the left breast. Stable small benign-appearing bilateral axillary lymph nodes. No other significant abnormalities are identified. There has been no significant change since the prior study. BI/SCRN MAMM (CAD)W/FRANCINE BILAT IMPRESSION: Stable bilateral screening mammogram. Yearly follow-up mammogram recommended. (A) ASSESSMENT CATEGORY: BIRADS Category 2: Benign. A letter regarding these results will be sent to the patient by the facility within 30 days. Approximately 10% of breast cancers are not detected by mammography. A normal mammogram should not delay biopsy of a clinically suspicious abnormality. [id number] Electronically Signed: Omar Leary MD at 13:43 EDT ,
--- NOTE | 2023-12-08 12:53 | BD_ITS ---
STUDY: DUAL ENERGY X-RAY ABSORPTIOMETRY / DXA REASON FOR EXAM: Female, 73 years old. [id number] TECHNIQUE: Bone Mineral Density (BMD) measurements of lumbar spine and left hip were obtained. COMPARISON: Comparison is made with prior study dated June 12, 2021. FINDINGS: Lumbar Spine (L1-L4): g/cm2 (0.690) / T-score (-3.2) / Z-score (-0.9) Findings are suggestive of osteoporosis with a high fracture risk. Left Femur Total: g/cm2 (0.553) / T-score (-3.2) / Z-score (-1.5) Left Femoral Neck: g/cm2 (0.433) / T-score (-3.7) / Z-score (-1.7) The T-Scores on the most recent prior examination were: Lumbar Spine (L1-L4): There has been improvement of bone density since the previous examination. Left Femur Total: which represents a worsening of 3.3%. BD/Dexa Bone Density Study IMPRESSION: The patient is considered osteoporotic as outlined below according to World Nino Organization (WHO) criteria with a high fracture risk. Reference Information: The T-score is the number of standard deviations above or below the standard which is normal for young adults at their peak bone mineral density. The World Health Organization (WHO) interprets the T-scores as follows: Above -1 Normal bone density Between -1 and -2.5 Osteopenia Equal to / or below -2.5 Osteoporosis As a practical clinical guideline, osteopenia may be graded as follows: Mild -1 through -1.5 Moderate -1.6 through -2.0 Severe -2.1 through -2.4 The Z-score is the number of standard deviations above or below age-matched controls. A Z-score of less than -1.5 would be considered abnormal. References: 1. NIH Osteoporosis and Related Bone Diseases www osteo.org 2. International Society for Clinical Densitometry www iscd.org 3. National Osteoporosis Foundation www nof.org Electronically Signed: Omar Leary MD at 13:57 EDT ,
== END | disposition home or self-care (01) ==
LOC: OPBD 12:50
PROVIDERS: PCP Nurse Practitioner Family; Referring Provider Nurse Practitioner Family; Visit Provider Nurse Practitioner Family
DX: Z12.31 Encounter for screening mammogram for malignant neoplasm of breast (principal); Z78.0 Asymptomatic menopausal state; Z80.3 Family history of malignant neoplasm of breast
CPT/HCPCS: 77063; 77067; 77080

== ENCOUNTER → 2024-11-10 | Outpatient (CLI) | payer MEDICARE, SELFPAY ==
--- NOTE | 2024-11-10 06:44 | MRI_ITS ---
PROCEDURE: SPINE LUMBAR (ROUTINE) 11/10/2024 REASON FOR EXAM: LUMBAR PAIN WITH MYELOPATHY, PRIOR L4-5 PROCEDURE TECHNIQUE: Multiplanar and multisequence images were obtained without IV contrast administration. COMPARISON: 10/11/2024. FINDINGS: Moderate diffuse spondylosis. Moderate multilevel degenerative disc disease. Moderate chronic changes of Baastrup's disease. There is normal signal intensity from the visualized bone marrow without evidence of replacement or acute fracture. The conus is unremarkable. Straightening of the lumbar lordosis, probably muscular spasm and pain. Evaluation of the individual levels revealed the following: L5-S1: There is grade 1 retrolisthesis measuring 3.2 mm. Mild diffuse disc bulge. Bilateral facet joint arthropathy and ligamentum flavum hypertrophy. The spinal canal is not narrowed. There is mild bilateral neural foramina narrowing. L4-5: There is grade 1 retrolisthesis measuring 2.5 mm. Mild diffuse disc bulge. Bilateral facet joint arthropathy and ligamentum flavum hypertrophy. The spinal canal is not narrowed. There is moderate bilateral neural foramina narrowing. L3-4: There is mild diffuse disc bulge. Bilateral facet joint arthropathy and ligamentum flavum hypertrophy. The spinal canal is not narrowed. There is minimal bilateral neural foramina narrowing. L2-3: There is mild diffuse disc bulge. Bilateral facet joint arthropathy and ligamentum flavum hypertrophy. The spinal canal is not narrowed. There is minimal bilateral neural foramina narrowing. L1-2: There is mild diffuse disc bulge. Bilateral facet joint arthropathy and ligamentum flavum hypertrophy. The spinal canal is not narrowed. There is minimal bilateral neural foramina narrowing. Normal visualized paraspinous soft tissue structures. Bilateral scattered simple renal cysts are noted with the largest measuring 2.6 cm on the right side. MRI/Spine Lumbar (Routine) IMPRESSION: Spondylosis. Degenerative disc disease. Reading [facility]
== END | disposition home or self-care (01) ==
LOC: OPMRI 06:38
PROVIDERS: PCP Nurse Practitioner Family; Referring Provider Nurse Practitioner Family; Visit Provider Nurse Practitioner Family
DX: M47.816 Spondylosis without myelopathy or radiculopathy, lumbar region (principal); G95.9 Disease of spinal cord, unspecified
CPT/HCPCS: 72148

== ENCOUNTER → 2024-12-08 | Outpatient (CLI) | payer MEDICARE, SELFPAY ==
--- NOTE | 2024-12-08 09:44 | BI_ITS ---
EXAM: SCRN MAMM (CAD)W/FRANCINE BILAT DATE: 12/08/2024 CLINICAL HISTORY: F, Age 74 y/o , SCREENING MAMMOGRAM TECHNIQUE: SCRN MAMM (CAD)W/FRANCINE BILAT COMPARISON: Prior exam(s) dated 12/08/2023, 08/12/2022, 06/12/2021. FINDINGS: TISSUE DENSITY: The breasts are heterogeneously dense, which may obscure small masses. The mammogram demonstrates that the patient has dense breasts. Supplemental screening with whole breast ultrasound or MRI may be considered for further evaluation. Bilateral Breast Mammographic Findings: There is an asymmetry in the lateral left breast at posterior depth visualized on the CC view. No significant masses, calcifications or other abnormalities are identified in the right breast. BI/SCRN MAMM (CAD)W/FRANCINE BILAT IMPRESSION: The asymmetry in the lateral left breast at posterior depth requires further ev aluation. Recommend diagnostic mammogram of the left breast and ultrasound on the day of diagnostic if indicated. OVERALL FINAL ASSESSMENT BI-RADS 0: INCOMPLETE - NEED ADDITIONAL IMAGING EVALUATION. RECOMMENDATION: Additional Views obtained/call backs A letter with findings and recommendations will be mailed to the patient. Reading Location: [id number]
== END | disposition home or self-care (01) ==
LOC: OPBI 09:42
PROVIDERS: PCP Nurse Practitioner Family; Referring Provider Nurse Practitioner Family; Visit Provider Nurse Practitioner Family
DX: Z12.31 Encounter for screening mammogram for malignant neoplasm of breast (principal)
CPT/HCPCS: 77063; 77067

== ENCOUNTER → 2024-12-20 | Outpatient (CLI) | payer MEDICARE, SELFPAY ==
--- NOTE | 2024-12-20 08:46 | BI_ITS ---
EXAM: DIAG MAMM W/CAD, UNILAT; LT BRST UNILAT FRANCINE ADD ON; BREAST LIMITED UNILATERAL 12/20/2024 CLINICAL HISTORY: 74-year-old female recalled from screening for a left breast findings seen on examination 12/08/2024. No family history of breast cancer. TECHNIQUE: DIAG MAMM W/CAD, UNILAT; LT BRST UNILAT FRANCINE ADD ON; BREAST LIMITED UNILATERAL. COMPARISON: Prior exam(s) dated 12/08/2024, 12/08/2023, 08/12/2022, 06/12/2021. FINDINGS: MAMMOGRAM: TISSUE DENSITY: The breasts are heterogeneously dense, which may obscure small masses. Unilateral Left Breast Mammographic Findings: Follow-up examination performed for the asymmetry in the left breast on examination of 12/08/2024. On the present examination, there is a focal asymmetry with distortion in the upper-outer left breast at posterior depth. ULTRASOUND: Ultrasound performed of the left breast demonstrates no sonographic correlate for the mammographic finding. Also, there is a large calcification in the left breast with posterior shadowing at 12 o'clock 7 cm from the nipple. Also, there is a hypoechoic mass in the left breast at 11 o'clock 7 cm from the nipple, measuring 0.6 x 0.3 x 0.3 cm, this may represent fibrocystic change. There is no left axillary lymphadenopathy. BI/Lt Brst Unilat Francine Add On IMPRESSION: Focal asymmetry with associated distortion in the upper-outer left breast at po sterior depth is suspicious. Recommend tissue sampling with stereotactic/tomosynthesis guided core needle biopsy. OVERALL FINAL ASSESSMENT BI-RADS 4: SUSPICIOUS RECOMMENDATION: Biopsy Recommended A letter with findings and recommendations will be mailed to the patient. Reading Location: [id number]
--- NOTE | 2024-12-20 08:46 | BI_ITS ---
EXAM: DIAG MAMM W/CAD, UNILAT; LT BRST UNILAT FRANCINE ADD ON; BREAST LIMITED UNILATERAL 12/20/2024 CLINICAL HISTORY: 74-year-old female recalled from screening for a left breast findings seen on examination 12/08/2024. No family history of breast cancer. TECHNIQUE: DIAG MAMM W/CAD, UNILAT; LT BRST UNILAT FRANCINE ADD ON; BREAST LIMITED UNILATERAL. COMPARISON: Prior exam(s) dated 12/08/2024, 12/08/2023, 08/12/2022, 06/12/2021. FINDINGS: MAMMOGRAM: TISSUE DENSITY: The breasts are heterogeneously dense, which may obscure small masses. Unilateral Left Breast Mammographic Findings: Follow-up examination performed for the asymmetry in the left breast on examination of 12/08/2024. On the present examination, there is a focal asymmetry with distortion in the upper-outer left breast at posterior depth. ULTRASOUND: Ultrasound performed of the left breast demonstrates no sonographic correlate for the mammographic finding. Also, there is a large calcification in the left breast with posterior shadowing at 12 o'clock 7 cm from the nipple. Also, there is a hypoechoic mass in the left breast at 11 o'clock 7 cm from the nipple, measuring 0.6 x 0.3 x 0.3 cm, this may represent fibrocystic change. There is no left axillary lymphadenopathy. BI/DIAG MAMM W/CAD, UNILAT IMPRESSION: Focal asymmetry with associated distortion in the upper-outer left breast at po sterior depth is suspicious. Recommend tissue sampling with stereotactic/tomosynthesis guided core needle biopsy. OVERALL FINAL ASSESSMENT BI-RADS 4: SUSPICIOUS RECOMMENDATION: Biopsy Recommended A letter with findings and recommendations will be mailed to the patient. Reading Location: [id number]
== END | disposition home or self-care (01) ==
PROVIDERS: PCP Nurse Practitioner Family; Referring Provider Nurse Practitioner Family; Visit Provider Nurse Practitioner Family
DX: R92.8 Other abnormal and inconclusive findings on diagnostic imaging of breast (principal)
CPT/HCPCS: 76642; 77061; 77065; G0279

== ENCOUNTER 2025-01-08 10:17 | Outpatient (CLI) | payer MEDICARE, SELFPAY ==
--- NOTE | 2025-01-08 11:14 | PN_ITS ---
Progress Note Area of the left breast asymmetry was targeted in the CC as well as lateral views with the stereotactic prone table; however, were not able to obviously see this area well. Will plan to discuss with colleagues and possibly get a second opinion from an institution that can do the 3D stereotactic biopsies as well. Patient agreeable plan will call patient once we discussed this further patient is aware may get a biopsy at another facility versus repeat short-term imaging versus MRI. Aleah Colby M.D. Pager: [phone] [facility] [address] [place] [address] Office: [phone]
== END 2025-01-08 23:59 | disposition home or self-care (01) ==
PROVIDERS: PCP Nurse Practitioner Family; Visit Provider Surgery
DX: D05.02 Lobular carcinoma in situ of left breast (principal); N60.92 Unspecified benign mammary dysplasia of left breast
CPT/HCPCS: 19081

== ENCOUNTER 2025-04-16 10:01 | Day surgery (SDC) | payer MEDICARE, SELFPAY ==
--- NOTE | 2025-04-06 16:06 | PAT.ANE_ITS ---
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 When Was Last Pacemaker Check QUESTION #4 FULL TEXT: You/Your Family Experience fever (hyperthermia) with Anesthesia Last Oral Intake Last Oral intake: Last Oral Intake NPO since Meds taken in AM with sips of water? Meds patient instructed to take am of surgery PONV PONV - branch employment coordinator: PONV - branch employment coordinator Female Yes 04/06/25 08:22 HX of Motion Sickness No 04/06/25 08:22 HX of N/V After Surgery Yes 04/06/25 08:22 Non-Smoker Yes 04/06/25 08:22 Duration of Surgery greater No 04/06/25 08:22 than 60 minutes Number of Risk Factors 3 04/06/25 08:22 PONV Score Moderate Risk 04/06/25 08:22 Height & Weight Height & Weight: Anesthesia: Height & Weight Height 5 ft 4 in 04/02/25 13:42 Respiratory Assessment Respiratory Assessment - branch employment coordinator: Respiratory Tract Infection Hx - branch employment coordinator Hx Respiratory Tract Infection No 04/06/25 08:22 STOP Sleep Apnea STOP Sleep Apnea - branch employment coordinator: STOP Sleep Apnea - branch employment coordinator Hx Hypertension No 04/06/25 08:22 Hx Sleep Apnea No 04/06/25 08:22 CPAP No 04/21/23 11:37 BIPAP No 04/21/23 11:37 Do you snore loudly (louder No 04/06/25 08:22 than talking or can be heard Do you often feel tired/ No 04/06/25 08:22 fatigued/ sleepy during daytime? Has anyone observed you stop No 04/06/25 08:22 breathing during sleep? STOP Results Negative 04/06/25 08:22 QUESTION #5 FULL TEXT : Do you snore loudly (louder than talking or can be heard through closed doors)? 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 Specify any problems Hx of Preganancy in last 3 No 04/06/25 08:22 Months Nurse Filling Out Transfusion JZOLLSANTANA 04/06/25 08:22 & Questions: Date: 04/06/25 04/06/25 08:22 Time: 08:24 04/06/25 08:22 Patient unable to answer at this time (ie. confused, unrespo /Reproduction History /Reproductive History - branch employment coordinator: /Reproductive Hx- branch employment coordinator Hx Now No 04/06/25 08:22 Gestational Age (in weeks): EDC: Hx Hx Para Hx Section SAB No 04/06/25 08:22 Does the father of the baby or his family experience fever w Father of the baby Malignant Hypertension history comment [facility] Medical History (Updated 04/06/25 @ 08:22 by Karley aJckson) Thyroid disease High cholesterol Hx of sepsis Heartburn Kidney stones Wears hearing aid Wears partial dentures Post-menopausal Arthritis Former smoker Leg cramps History of pain when walking History of edema History of echocardiogram History of stress test Hypothyroidism Vitamin D deficiency Anxiety Anisometropia GERD (gastroesophageal reflux disease) Hiatal hernia Functional intestinal disorder, unspecified Arthralgia Osteoporosis Bloating Elevated lipase Elevated alkaline phosphatase level HLD (hyperlipidemia) COPD (chronic obstructive pulmonary disease) Home Medications Medication Instructions Recorded Last Taken Type levothyroxine 75 mcg tablet 75 mcg PO DAILY 11/15/14 U nknown History rosuvastatin 10 mg tablet 10 mg PO QODAY 03/26/17 11/2 02/20 History cholecalciferol (vitamin D3) 50 50 mcg PO DAILY Unknown History mcg (2,000 unit) capsule coenzyme Q10 100 mg capsule (Co 100 mg PO DAILY heart health 01/26/23 Unknown History Q-10) pantoprazole 40 mg tablet,delayed 40 mg PO BID #60 tab s 02/26/23 Unknown Rx release alprazolam 0.5 mg tablet 0.5 mg PO QDAY PRN anxiety 0 10/11/24 Unknown History Allergy/AdvReac Type Severity Reaction Status Date / Time Sulfa (Sulfonamide Allergy Intermediate Rash Verified 04/06/25 08:15 Antibiotics) ciprofloxacin (From Cipro) Allergy Swelling Verified 04/06/25 08:15 ciprofloxacin HCl (From Allergy Swelling Verified 04/06/25 08:15 Cipro) morphine AdvReac Inflammation Verified 04/06/25 08:15 of vein Family History (Updated 12/27/24 @ 13:38 by Millie Camahco) Mother Diabetes Father Brain cancer Sister Cancer of kidney GERD (gastroesophageal reflux disease) Sister Atrial septal defect GERD (gastroesophageal reflux disease) Brother Atrial septal defect Sister Breast cancer Surgical History History of cholecystectomy History of esophagogastroduodenoscopy (EGD) Hx of colonoscopy Hx of discectomy H/O total hysterectomy History of hip surgery Social History Smoking Status: Former smoker Audit: Pertinent Findings Pertinent Findings EKG Perinent findings: 04/29/2023. Sinus tachycardia 120 bpm. Occasional PVCs. Nonspecific ST and T wave abnormality. Stress test pertinent findings: 08/13/2022. Patient achieved 7 METS. EF is 70%. No evidence of significant ischemia or infarction. Echo (EF%) pertinent findings: January 21, 2021. EF is 60%. RVSP is 25 mmHg. No aortic valve stenosis is noted. Additional pertinent findings: Carotid duplex. 08/13/2022. BERNIE has < 50% stenosis. LICA has < 50% stenosis. Recommendation Anesthesia Recommendation Anesthesia recommendation: OPTIMIZED for anesthesia
[2025-04-16] VITALS (9 sets, daily range): BP systolic 119–133; BP diastolic 52–73; PULSE 74–93; RESP 16–18; TEMP 36.1–36.7; O2SAT 96–100; BMI 18.5
--- NOTE | 2025-04-16 10:43 | HP.PCM_ITS ---
History and Physical Date of Admission: 04/16/25 Date of Service: 04/02/25 MR#: [id number] Acct: [id number] Name: ALIX AVILA Rep #: [id number] : 1950 Provider: Dr. Aleah Colby MD Age/Sex: 74/F Location: [facility] Status: Signed Intake Vital Signs 12/27/2512:36 04/02/2513:42 Height 5 ft 4 in 5 ft 4 in Weight: 109 lb BMI 18.7 BP 128/79 H Blood Pressure Location Rt brachial Position Sitting Respiration 17 Pulse 88 Pulse Source Monitor Pulse Oximetry (%) 96 Oxygen Delivery Method room air Intake Visit Reasons: DISCUSS EXCISIONAL BREAST BIOPSY Chief Complaint: discuss excisional breast biopsy Is patient in pain?: No Allergies Sulfa (Sulfonamide Antibiotics) Allergy (Intermediate, Verified 04/02/25 13:43) Rash ciprofloxacin (From Cipro) Allergy (Verified 04/02/25 13:43) Swelling ciprofloxacin HCl (From Cipro) Allergy (Verified 04/02/25 13:43) Swelling morphine Adverse Reaction (Verified 04/02/25 13:43) Inflammation of vein Medications Medication Instructions Recorded Confirmed Type levothyroxine 75 mcg tablet 75 mcg PO DAILY 11/15/14 04/02/25 Histor y rosuvastatin 10 mg tablet 10 mg PO QODAY 03/26/17 04/02/25 History cholecalciferol (vitamin D3) 50 50 mcg PO DAILY 08/10/22 04/02/25 Histor y mcg (2,000 unit) capsule coenzyme Q10 100 mg capsule (Co 100 mg PO DAILY heart health 01/26/23 History Q-10) pantoprazole 40 mg tablet,delayed 40 mg PO BID #60 tabs 02/26/23 04/02/25 Rx release alprazolam 0.5 mg tablet 0.5 mg PO QDAY PRN anxiety 10/11/2408/22 History meloxicam 15 mg tablet 15 mg PO QDAY 10/11/24 04/02/25 History Have you fallen in the past year?: No PFSH Medical History Kidney stones Wears hearing aid Wears partial dentures Post-menopausal Arthritis Former smoker Leg cramps History of pain when walking History of edema History of echocardiogram History of stress test Hypothyroidism Vitamin D deficiency Anxiety Anisometropia GERD (gastroesophageal reflux disease) Hiatal hernia Functional intestinal disorder, unspecified Arthralgia Osteoporosis Bloating Elevated lipase Elevated alkaline phosphatase level HLD (hyperlipidemia) COPD (chronic obstructive pulmonary disease) Surgical History History of cholecystectomy History of esophagogastroduodenoscopy (EGD) Hx of colonoscopy Hx of discectomy H/O total hysterectomy History of hip surgery Family History (Updated 12/27/24 @ 13:38 by Millie Camacho) Mother Diabetes Father Brain cancer Sister Cancer of kidney GERD (gastroesophageal reflux disease) Sister Atrial septal defect GERD (gastroesophageal reflux disease) Brother Atrial septal defect Sister Breast cancer Social History Smoking Status: Former smoker HPI HPI HPI: 74-year-old female presents to discuss left breast biopsy results. Pathology did show a radial scar this was done at [facility] as it needed at 3D stereotactic biopsy which we do not have here. Did discuss pathology over the phone with the patient and her and advised her to have an excisional biopsy due to the radial scar to make sure nothing else is going on in that area. Patient is here to discuss further. ROS General General: No weight change, appetite, fatigue, colon cancer or breast cancer HEENT HEENT: No difficulty swallowing, eye injury, eye surgery, swollen glands or hoarseness Endo Endocrine: No thyroid disease, diabetes mellitus, thyroid cancer, Hair loss, heat intolerance or cold intolerance Skin Skin: No rash or changing moles Breast Breast: Yes abnormal mammogram and abnormal US; No left breast lump, right breast lump, nipple discharge, breast pain or breast enlargement Musc Musculoskeletal: Yes back problems and arthritis; No rheumatoid arthritis, gout or joint pain Cardio Cardiovascular: No murmur, pacemaker, heart disease, atrial fibrillation, high blood pressure, heart attack, heart stent, palpitations, shortness of breath with exertion or chest pain Psych Psychiatric: No depression, anxiety or hearing voices Resp Respiratory: No shortness of breath, No sleep apnea, No cough, No COPD, No asthma, No emphysema and No wheezing Gastro Gastrointestinal: No abdominal pain, No nausea or vomiting, No diarrhea, No constipation, No blood in stool, Yes acid reflux, No hemorrhoids, No ulcers, Yes gallbladder problem and No black,tarry stools Willis Hematologic: No blood thinners, No blood disorders, No bleeding, No anemia and No blood clots Neuro Neurologic: No numbness and No tingling Exam Const General: cooperative, healthy appearing and no acute distress [facility] Head: normal to inspection Resp Effort & Inspection: normal respiratory effort Cardio Rate: regular rate GI Inspection: non-distended Palpation: soft Skin General: no rashes or lesions noted Neuro General: patient oriented x3 Extrem General: no clubbing, cyanosis or edema Psych Affect: normal affect Assessment and Plan Assessment and Plan (1) Radial scar of left breast: Status: Acute Plan Discussed with patient that with biopsy results of radial scar we do recommend an excisional biopsy to make sure there is nothing else going on in the area and it is in fact just radial scar-benign. Discussed the procedure of stereotactic left breast wire localization lumpectomy the patient and her . Including risk not limited to bleeding, infection, need for further surgery. Patient and her no further questions time. They will plan to schedule. Aleah Colby M.D. Pager: [phone] [facility] [address] [place] [address], [facility], [address] [place] [address] Office: [phone] Coding Level of Care Code Off vis,est,level 3 Diagnoses Radial scar of left breast N64.89 Clinical Quality Measures Falls Risk Screening/Assistive Devices Have you fallen in the past year?: No 04/03/25 1230 <Electronically signed by Aleah Colby MD> Date Aleah Colby MD
[2025-04-16] MEDS: Lactated Ringers 1,000 ML 15 ML IV (10:46)
--- NOTE | 2025-04-16 11:20 | PCM.PRE.AN2 ---
ASA Classification* ASA Classification ASA Classification: 3 Assessment & Plan Anesthesia* Anesthesia Assessment Anesthesia Assessment: Discussed sedation and/or anesthesia options, risks, benefits, and alternatives with patient/parents/legal guardian/POA. Questions invited. The patient/parents/legal guardian/POA seems to understand and agrees to proceed with anesthesia plan. Reviewed the physical assessment, medical history, allergy history and patient home medications list prior to surgery/procedure/anesthetic and documented any changes. Performed airway and anesthesia risk assessments. Anesthesia Type Anesthesia Type: General History Source History Obtained from:: Patient and Chart Anesthesia Focused Assessment* Temperature: 98.1 F Pulse Rate: 74 Blood Pressure: 133/73 Respiratory Rate: 18 Pulse Ox: 97 Oxygen Delivery Method: Room Air Airway Assessment Mouth opens: >3 cm Mallampati Score: I Teeth Condition: Dentures (Patient has full upper and lower dentures.) Neck Range of motion (ROM): Full ROM Labs Anesthesia Preop lab: CBC WBC, (4.4-11.0) 11.7 K/mm3 H 04/30/23, 05:25 RBC, (4.2-5.4) 3.26 M/mm3 L 04/30/23, 05:25 Hgb, (12.0-15.0) 10.0 g/dL L 04/30/23, 05:25 Hct, (37-47) 32.8 % L 04/30/23, 05:25 Plt Count, (150-450) 127 K/mm3 L 04/30/23, 05:25 CHEMISTRY Potassium, (3.5-5.1) 3.6 mmol/L 04/30/23, 05:25 Sodium, (136-145) 142 mmol/L 04/30/23, 05:25 Magnesium, (1.6-2.6) 1.8 mg/dL 02/15/23, 04:50 Phosphorus, (2.5-4.9) 2.5 mg/dL 10/31/14, 15:32 BUN, (7-18) 12 mg/dL 04/30/23, 05:25 Creatinine, (0.55-1.02) 0.70 mg/dL 04/30/23, 05:25 Glucose, (74-106) 78 mg/dL 04/30/23, 05:25 TSH, (0.358-3.74) 1.06 uIU/mL 07/25/18, 11:03 COAG PT, (11.7-14.9) 12.8 SECONDS 11/14/14, 11:48 Pre-Assessment Diagnosis/Proposed Procedure Planned Operative Procedure(s): (L) Excision,Stereo wire loc Breast Mass or Biopsy Anesthesia History 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 When Was Last Pacemaker Check QUESTION #4 FULL TEXT: You/Your Family Experience fever (hyperthermia) with Anesthesia Last Oral Intake Last Oral intake: Last Oral Intake NPO since 07:30 04/16/25 10:37 Meds taken in AM with sips of No 04/16/25 10:37 water? 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 Female Yes 04/06/25 08:22 HX of Motion Sickness No 04/06/25 08:22 HX of N/V After Surgery Yes 04/06/25 08:22 Non-Smoker Yes 04/06/25 08:22 Duration of Surgery greater No 04/06/25 08:22 than 60 minutes Number of Risk Factors 3 04/06/25 08:22 PONV Score Moderate Risk 04/06/25 08:22 Height & Weight Height & Weight: Anesthesia: Height & Weight Height 5 ft 4 in 04/16/25 10:37 Weight: 49 kg 04/16/25 10:37 Body Mass Index (BMI) 18.5 04/16/25 10:37 Respiratory Assessment Respiratory Assessment - environmental engineering professor: Respiratory Tract Infection Hx - environmental engineering professor Hx Respiratory Tract Infection No 04/06/25 08:22 STOP Sleep Apnea STOP Sleep Apnea - environmental engineering professor: STOP Sleep Apnea - environmental engineering professor Hx Hypertension No 04/06/25 08:22 Hx Sleep Apnea No 04/06/25 08:22 CPAP No 04/21/23 11:37 BIPAP No 04/21/23 11:37 Do you snore loudly (louder No 04/06/25 08:22 than talking or can be heard Do you often feel tired/ No 04/06/25 08:22 fatigued/ sleepy during daytime? Has anyone observed you stop No 04/06/25 08:22 breathing during sleep? STOP Results Negative 04/06/25 08:22 QUESTION #5 FULL TEXT : Do you snore loudly (louder than talking or can be heard through closed doors)? 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 Specify any problems Hx of Preganancy in last 3 No 04/06/25 08:22 Months Nurse Filling Out Transfusion JZOLLINGE 04/06/25 08:22 & Questions: Date: 04/06/25 04/06/25 08:22 Time: 08:24 04/06/25 08:22 Patient unable to answer at this time (ie. 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: /Reproductive Hx- environmental engineering professor Hx Now No 04/06/25 08:22 Gestational Age (in weeks): EDC: Hx Hx Para Hx Section SAB No 04/06/25 08:22 Does the father of the baby or his family experience fever w Father of the baby Malignant Hypertension history comment Active Medications Active Medications: Current Medications Generic Name Dose Route Start Last Admin Trade Name Freq PRN Reason Stop Dose Admin Lactated Ringer's 1,000 mls @ 15 mls/hr 04/16/25 10:45 04/16/25 10:46 IV 15 mls/hr .Q48H ISSAC Administration Lactated Ringer's 1,000 mls @ 15 mls/hr 04/16/25 10:45 04/16/25 10:45 IV Not Given .Q48H ISSAC PFSH Medical History Thyroid disease High cholesterol Hx of sepsis Heartburn Kidney stones Wears hearing aid Wears partial dentures Post-menopausal Arthritis Former smoker Leg cramps History of pain when walking History of edema History of echocardiogram History of stress test Hypothyroidism Vitamin D deficiency Anxiety Anisometropia GERD (gastroesophageal reflux disease) Hiatal hernia Functional intestinal disorder, unspecified Arthralgia Osteoporosis Bloating Elevated lipase Elevated alkaline phosphatase level HLD (hyperlipidemia) COPD (chronic obstructive pulmonary disease) Home Medications Medication Instructions Recorded Last Taken Type levothyroxine 75 mcg tablet 75 mcg PO DAILY 11/15/14 04/15/25 History rosuvastatin 10 mg tablet 10 mg PO QODAY 03/26/17 04/15/25 History cholecalciferol (vitamin D3) 50 50 mcg PO DAILY 08/10/22 04/15/25 History mcg (2,000 unit) capsule coenzyme Q10 100 mg capsule (Co 100 mg PO DAILY [facility] 01/26/23 04/15/25 History Q-10) pantoprazole 40 mg tablet,delayed 40 mg PO BID #60 tabs 02/26/23 04/16/25 Rx release alprazolam 0.5 mg tablet 0.5 mg PO QDAY PRN anxiety 10/11/24 04/13/25 History Allergy/AdvReac Type Severity Reaction Status Date / Time Sulfa (Sulfonamide Allergy Intermediate Rash Verified 04/16/25 10:34 Antibiotics) ciprofloxacin (From Cipro) Allergy Swelling Verified 04/16/25 10:34 ciprofloxacin HCl (From Allergy Swelling Verified 04/16/25 10:34 Cipro) morphine AdvReac Inflammation Verified 04/16/25 10:34 of vein Family History Mother Diabetes Father Brain cancer Sister Cancer of kidney GERD (gastroesophageal reflux disease) Sister Atrial septal defect GERD (gastroesophageal reflux disease) Brother Atrial septal defect Sister Breast cancer Surgical History History of cholecystectomy History of esophagogastroduodenoscopy (EGD) Hx of colonoscopy Hx of discectomy H/O total hysterectomy History of hip surgery Social History Smoking Status: Former smoker Review of Systems (Anesthesia) ROS Narrative System reviewed and no additional complaints, except as documented.
--- NOTE | 2025-04-16 12:00 | BREAST_PTH ---
PATIENT: ALIX AVILA LOC: [facility] [place] U#:[id number] AGE/SX: 74/F ROOM: RE04/16/[address]: Dr. Aleah Colby MD : 1950 BED: DIS: 04/16/2025 SPEC #: [id number] RECD: 04/16/25 12:58 STATUS: CHARANJIT ZAINAB #: [id number] BERNARDINO: 04/16/25 12:[address]: Aleah Colby DEPT: SURGICAL PATHOLOGY RECD BY: Eliot Sifuentes ENTERED: 04/16/25 14:08 SP TYPE: BREAST OTHR DR: No Primary Care Phys Tissues: A - Left breast, NOS Procedures: Immunohistochemical Stains Surgery Specimen Level IV IHC Stain ADDITIONAL HEADER OPERATION: Left breast mass excision, stereotactic wire localization PRE-OP DIAGNOSIS: Radical scar of left breast TISSUE SUBMITTED: A- Left breast mass *long stitch- middle lateral, short stitch - middle superior* MICROSCOPIC DIAGNOSIS A. 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 The CK5/6 is reduced to absent in the area of atypical ductal hyperplasia (ADH). The ECadherin is reduced to absent in the lobular carcinoma in-situ (LCIS). The estrogen receptor is positive with strong staining in >95% of cells in the ADH and LCIS. The progesterone receptor is positive with strong staining in 80% of the LCIS and patchy staining in the ADH. The LCIS measures 0.5 mm from the inferior margin and the ADH measures 1.5 mm from the inferior margin. The slides are reviewed with Kenny Fernández MD in consultation. MICROSCOPIC DESCRIPTION Slides are reviewed. GROSS DESCRIPTION A. Received fresh labeled with the patient's name and date of . Designated as "left breast mass" is a 4.4 x 3.8 x 1.8 cm lumpectomy localization wire on the lateral aspect.. There is a short suture designated as middle superior and a long suture designated as middle lateral. Skin is not present. The specimen is inked as follows: Superior: RedInferior: BlueMedial: YellowLateral: OrangeAnterior: GreenPosterior: Black The specimen is serially sectioned from medial to lateral (into 8 slices) revealing a an additional, suture (short, appears to be holding a medial defect intact). There is a 0.7 x 0.6 x 0.5 cm echeverria-white, firm and fibrotic, apparent mass located in slice #6. A biopsy clip is identified within the mass. The mass is located the following distances from each margin: Anterior: 0.3 cmInferior: <0.1 cmMedial: 2.8 cmLateral: 1.3 cmPosterior: 1.2Superior: 1.1 cm Remainder of the cut surfaces are fatty with focal fibrosis, adjacent to the mass in slices #5-#7 and focal fibrosis in slices #1-#3 at the medial margin. Review of postoperative imaging confirms the presence of a biopsy clip and localization wire. Interior Design Coordinator sections are submitted, sequentially from slice #1 (medial) to slice #8 (lateral) as follows: A1: Slice #1, medial, perpendicular (yellow)A2: Slice #2, fibrosis to anterior/inferior (green/blue)A3: Slice #3, fibrosis to anterior/inferior (green/blue)A4: Slice #4 with anterior/inferior/posterior (green/blue/black)A5: Slice #5, fibrosis to anterior/inferior/posterior (green/blue/black)A6: Slice #6 mass and biopsy site to superior/anterior/inferior/posterior (red/green/blue/black)A7: Slice #7, fibrosis to anterior/inferior, with commercial sales representative lateral/superior (green/blue/orange/red)A8: Slice #8, lateral, perpendicular (orange) Cold ischemic time: 15 minutesFormalin fixation time: 6 hours, 28 minutes [place] 04/16/2025PT:[id number]
[2025-04-16] MEDS: Cefazolin 1 GM/5 ML Vial 2 GM IV (12:15)
[2025-04-16] MEDS: Lidocaine 1% (5 ml sdv) 5 ML Vial IV (12:20)
[2025-04-16] MEDS: fentaNYL 100 MCG/2 ML Ampul IV (12:41)
--- NOTE | 2025-04-16 12:52 | OP.PCM_ITS ---
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 [employer] Sales Manager: Vernell Walker Tasks completed by blood donor unit assistant: Opening & closing Type of Anesthesia: General/Supplemental RN Documented Start/Stop Times: Operation Date: 04/16/25 12:00 Case Time Into Pre-Op 04/16/25 10:35 Anesthesia Start 04/16/25 12:13 Into Room 04/16/25 12:13 Procedure Start 04/16/25 12:29 Procedure End 04/16/25 13:01 Anesthesia End 04/16/25 13:06 Out of Room 04/16/25 13:06 Into Recovery 04/16/25 13:08 Into Phase II Recovery 04/16/25 13:34 Out of Recovery 04/16/25 13:34 Out of Phase II 04/16/25 14:16 Procedure Start Time: 12:29 Procedure Stop Time: 13:01 Select all DRAINS/GRAFTS/IMPLANTS that apply: None Special Medications: Ancef 2 g IV x 1 Estimated Blood Loss: 5 cc Specimen collected: Yes Description of specimen(s) removed: Left breast mass/radial scar Description of surgery: Patient was brought to mammography for stereotactic guided left clip localization. Clip was localized. Breast was prepped with Betadine. Bard wire was placed after infiltrating local anesthesia. Fifteen and -15 degree views c onfirmed good placement of the wire. 2 view mammography was also completed for localization. Patient was brought operating placed by op room table. Timeout verifying correct patient, procedure, site, positioning and aspiration prior to beginning procedure. General anesthesia was induced. Left breast was prepped draped usual sterile fashion. A curvilinear incision was planned to minimize diss ection along the wire to the clip. Electrocautery was used to excise wire and clip with grossly normal tissue. This was sent to mammography for x-ray and then pathology after orienting. Confirmation of entire wire and clip removal. The cavity was irrigated. Incision closed with interrupted 3-0 Vicryl sutures subdermal and skin closed with 4-0 Monocryl. Steri-Strips and fluffs and surgical bra was placed. Patient was taken to postanesthesia care in stable condition. Surgical Findings: See operative report Complications Complications: No
[2025-04-16] MEDS: Bupiv/Epi 0.25% 30 ML Vial (12:53)
--- NOTE | 2025-04-16 12:57 | DCINST_ITS ---
Discharge Instructions Diet Discharge Diet: No restrictions Activity Discharge Activity: May Not Drive (for 2-3 days or while taking narcotic pain meds.) May shower in (days): 1 Lifting Restrictions: 10 pounds for 1 week. Dressing / Incision Call your doctor if your incision/area has: Continuous Slow Oozing, Sudden Increased Bleeding, Increased Pain/ Swelling and Increased Redness Call your doctor if you observe: Fever of 101 or Higher Suture Line Care: Avoid Pulling/Pushing and Avoid Pinching/Bending Remove Dressing in: 1 day Additional Dressing/Incision Instructions:: Remove bulky dressing tomorrow. May leave op-site dressing for 3-4 days. Okay to remove Steri-Strips from the breast incision in 7 to 10 days. Follow Up Care Please Follow Up With: Aleah Colby MD When: Please call [phone] for an appointment to be seen in 2 weeks. Any concerns after 4:30pm and on the weekends call [phone] Test Results: Test results from this visit will be discussed in further detail at your follow- up appointment, if applicable. Discharge Plan Admission Attending Provider: Aleah Colby Primary Care Provider: Care Physician,No Primary Instructions Additional Instructions / Restrictions: Okay to take ibuprofen 400-600 mg PO q6hr PRN pain and/or Tylenol 650mg PO Q6H PRN pain along with Tramadol. Take all pain meds with food. Tramadol can cause constipation recommend taking daily stool softener (i.e. Colace/docusate) while taking the pain meds. Recommend starting some MiraLAX in 1-2 days if no bowel movement. If still no bowel movement the next day recommend taking magnesium citrate half the bottle and waiting 4-6 hours if sti ll no results take the other half the bottle. Print Language: Malaysian Discharge Orders/Prescriptions Prescriptions: New tramadol 50 mg tablet 50 mg PO Q6H PRN (Reason: pain) Qty: 5 0RF Continued cholecalciferol (vitamin D3) 50 mcg (2,000 unit) capsule 50 mcg PO DAILY pantoprazole 40 mg tablet,delayed release (DR/EC) 40 mg PO BID Qty: 60 3RF alprazolam 0.5 mg tablet 0.5 mg PO QDAY PRN (Reason: anxiety) levothyroxine 75 MCG tablet 75 mcg PO DAILY Patient Comments: THYROID rosuvastatin 10 MG tablet 10 mg PO QODAY Patient Comments: CHOLESTEROL coenzyme Q10 [Co Q-10] 100 mg capsule 100 mg PO DAILY Referrals / Follow Up: Care Physician,No Primary [Primary Care Provider, Medical] Disposition Disposition (needs filled in before D/C Order can be placed): Home, Self Care
--- NOTE | 2025-04-16 14:43 | PCM.POST.ANE ---
Anesthesia: Postop Eval I Current Vital Signs Temperature: 97.8 F Pulse Rate: 88 Blood Pressure: 123/52 Respiratory Rate: 18 Pulse Ox: 100 Oxygen Delivery Method: Room Air Assessment Airway patent: Yes Spontaneous unlabored respirations: Yes Mental status: Awake and Calm nausea: No Vomiting: No Anesthesia Complication: No Fluid Hydration Crystalloid volume administer (ml): 800 Total IV fluid infused: 800 Progress Note Anesthesia document: Postop Eval 1 completed: Yes
--- NOTE | 2025-04-16 16:33 | POSTOPAN2_ITS ---
Anesthesia Postop Eval I Sum Postop Eval Completion status Anesthesia document: Postop Eval 1 completed: Yes Anesthesia Postop Eval I Summary Anesthesia Postop Eval I Summary: Anesthesia Postop Eval I: Assessment Summary Airway patent Yes 04/16/25 14:44 SOLUTIONS ENGINEER.ANGELAOBDanni Spontaneous unlabored Yes 04/16/25 14:44 SOLUTIONS ENGINEER.FRANCISCO JAVIER respirations Mental status Awake,Calm 04/16/25 14:44 SOLUTIONS ENGINEER.FRANCISCO JAVIER nausea No 04/16/25 14:44 SOLUTIONS ENGINEER.FRANCISCO JAVIER Vomiting No 04/16/25 14:44 SOLUTIONS ENGINEER.FRANCISCO JAVIER Anesthesia Postop Eval I: Fluid Summary Crystalloid volume administer 800 04/16/25 14:44 SOLUTIONS ENGINEER.ANGELAOBY (ml) Colloids volume administered ( ml) Blood Product volume administered (ml) Total IV fluid infused 800 04/16/25 14:44 SOLUTIONS ENGINEER.FRANCISCO JAVIER Anesthesia Postop Eval I: Summary Notes Anesthesia Complication No 04/16/25 14:44 SOLUTIONS ENGINEER.FRANCISCO JAVIER Anesthesia Complication Comment: Post-operative progress note Anesthesia: Postop Eval II Evaluation Mental status: Awake and Calm Pain Level: 1 nausea: No Vomiting: No
--- NOTE | 2025-04-16 16:33 | PCM.POSTANE2 ---
Anesthesia Postop Eval I Sum Postop Eval Completion status Anesthesia document: Postop Eval 1 completed: Yes Anesthesia Postop Eval I Summary Anesthesia Postop Eval I Summary: Anesthesia Postop Eval I: Assessment Summary Airway patent Yes 04/16/25 14:44 HOSPITAL COORDINATOR.ANGELAOBDanni Spontaneous unlabored Yes 04/16/25 14:44 HOSPITAL COORDINATOR.FRANCISCO JAVIER respirations Mental status Awake,Calm 04/16/25 14:44 HOSPITAL COORDINATOR.FRANCISCO JAVIER nausea No 04/16/25 14:44 HOSPITAL COORDINATOR.FRANCISCO JAVIER Vomiting No 04/16/25 14:44 HOSPITAL COORDINATOR.FRANCISCO JAVIER Anesthesia Postop Eval I: Fluid Summary Crystalloid volume administer 800 04/16/25 14:44 HOSPITAL COORDINATOR.ANGELAOBY (ml) Colloids volume administered ( ml) Blood Product volume administered (ml) Total IV fluid infused 800 04/16/25 14:44 HOSPITAL COORDINATOR.FRANCISCO JAVIER Anesthesia Postop Eval I: Summary Notes Anesthesia Complication No 04/16/25 14:44 HOSPITAL COORDINATOR.FRANCISCO JAVIER Anesthesia Complication Comment: Post-operative progress note Anesthesia: Postop Eval II Evaluation Mental status: Awake and Calm Pain Level: 1 nausea: No Vomiting: No
== END 2025-04-16 14:18 | disposition home or self-care (01) ==
LOC: SDC 10:02 → AC 10:28
PROVIDERS: Referring Provider Surgery; Visit Provider Surgery
DX: C50.912 Malignant neoplasm of unspecified site of left female breast (principal); J44.9 Chronic obstructive pulmonary disease, unspecified; K21.9 Gastro-esophageal reflux disease without esophagitis; E78.5 Hyperlipidemia, unspecified; Z79.899 Other long term (current) drug therapy; Z87.891 Personal history of nicotine dependence
CPT/HCPCS: 19283; 00400; 19281; 76098; 88305; 88341; 88342; A4648; J2405